=== PATIENT | male | born 1945 | race Caucasian/White ===

== ENCOUNTER 2019-01-08 15:58 | Inpatient (IN) ==
[~2019-01-08 15:58] MED LIST: KETAMINE HCL INJ 50 MG/ML 10 ML VIAL IV ONE; ROCURONIUM BROMIDE 10 MG/ML 10 ML VIAL IV ONE
[2019-01-08] MEDS ORDERED: RAPID SEQUENCE INDUCTION BAG ONE (16:01)
--- OUTSIDE RECORDS SUMMARY | 2019-01-08 16:01 | External Medical Summary | Continuity of Care Document ---
:1945 Author Name Destiney Martin, Provider Address Unavailable Unavailable , Care Team Providers Name Role Phone NonMNPG Mario, Provider Unavailable [email or web address], [email or web address] Unavailable Unavailable Problems Active medical history not documented Allergies and Adverse Reactions Allergy history not documented Medications Medications not documented Procedures Procedures not documented Immunizations Immunizations not documented Plan of Treatment Planned Observations Planned Goals not documented Results No Known Results Results not documented
[2019-01-08] MEDS ORDERED: fentaNYL DRIP 1,250 MCG/250 ML BAG IV STA (16:13)
[2019-01-08] MEDS ORDERED: fentaNYL citrate 100 MCG/2 ML VIAL IV PRN ×2 (16:13→19:01)
[2019-01-08] MEDS ORDERED: MIDAZOLAM HCL 125 MG/250 ML BAG IV STA (16:13)
[2019-01-08] MEDS ORDERED: MIDAZOLAM HCL 1 MG/ML 2ML VIAL IV PRN (16:13)
[2019-01-08] MEDS ORDERED: THIAMINE HCL 100 MG in SYRINGE 9 ML IV STA (16:16)
[2019-01-08] MEDS ORDERED: FOLIC ACID 1 MG in SYRINGE 9.8 ML IV STA (16:16)
--- NOTE | 2019-01-08 16:19 | XRay Report ---
XR chest 1V portable CLINICAL HISTORY: Post intubation tube position COMPARISON STUDY: 03/26/2018 FINDINGS: Endotracheal tube 4 cm above the bridget. Lungs are considered clear. Diaphragms are smooth. Minimal atelectatic and/or interstitial change left base. IMPRESSION: Endotracheal tube in good position 4 cm above the bridget. Minimal interstitial/atelectat ic change left base. The above report was generated using voice recognition software. It may contain grammatical, syntax or spelling errors. Electronically signed by: Rios Orozco M.D. 01/08/2019 4:18 PM
[2019-01-08 16:20] LABS: Basophils # (auto) 0.02 K/uL (0-0.2); Basophils % (auto) 0.1 %; Eosinophils # (auto) 0.07 K/uL (0-0.5); Eosinophils % (auto) 0.4 %; Hematocrit (blood only) 34.6 % (42-52); Immature Granulocytes # (auto) 0.03 K/uL (0.00-0.02); Immature Granulocytes % (auto) 0.2 %; Lymphocytes # (auto) 1.38 K/uL (1.2-3.4); Lymphocytes % (auto) 8.1 %; Mean Corpuscular Hgb Conc 34.7 g/dL (32-36); Mean Platelet Volume 9.9 fL (7.4-10.4); Monocytes # (auto) 0.74 K/uL (0.11-0.59); Monocytes % (auto) 4.3 %; Neutrophils # (auto) 14.87 K/uL (1.4-6.5); Neutrophils % (auto) 86.9 %; Platelet Count 177 K/uL (130-400); RDW Coefficient of Variation 12.7 % (11.5-14.5); Red Blood Count 3.93 M/uL (4.7-6.1); White Blood Count 17.11 K/uL (4.8-10.8)
[2019-01-08 16:22] LABS: iSTAT Creatinine 1.6 mg/dl (0.6-1.3); iSTAT Hemoglobin 11.2 g/dl (14.0-18.0); iSTAT Ionized Calcium 1.23 mmol/l (1.12-1.32)
[2019-01-08 16:30] LABS: Base Excess VBG -6.5 mEq/L; Oxygen Saturation VBG 98.8 %; pH VBG 7.31 (7.36-7.41)
[2019-01-08 16:31] LABS: Alanine Aminotransferase 22 U/L (12-78); Albumin Level 3.7 gm/dl (3.4-5.0); Aspartate Aminotransferase 25 U/L (15-37); BUN Creatinine Ratio 17.6 (10-20); Blood Urea Nitrogen 28 mg/dl (7-18); Calcium 8.8 mg/dl (8.5-10.1); Carbon Dioxide 21 mmol/L (21-32); Chloride 109 mmol/L (98-107); Creatinine Clr Calc Pharmacy 37.5 ml/min; Est GFR (African American) 49.2; Est GFR (Non-African American) 42.4; Glucose 178 mg/dl (70-99); INR 1.1 (0.9-1.1); Potassium 4.9 mmol/L (3.5-5.1); Prothrombin Time 10.9 Seconds (9.0-12.0); Sodium 140 mmol/L (136-145)
[2019-01-08 16:40] LABS: Albumin Globulin Ratio 1.3 (0.9-2); Alkaline Phosphatase 122 U/L (45-117); Bilirubin,Total 0.7 mg/dl (0.2-1); Creatine Kinase 156 U/L (39-308); Globulin 2.9 gm/dl (2.5-4.0); NT Pro B Type Natriuretic Pept 259 pg/ml (0-900); Total Protein 6.6 gm/dl (6.4-8.2)
--- NOTE | 2019-01-08 16:49 | CT Scan Report ---
CT head/brain wo con CT DOSE: HISTORY: Mental status change ams TECHNIQUE: Multiaxial CT images of the head were performed without the use of intravenous contrast. A dose lowering technique was utilized adhering to the principles of ALARA. Comparison: 03/26/2018 Findings: Extensive edematous change of the nasopharynx. This may be secondary to traumatic intubatio n. Considerable chronic small vessel change in the periventricular deep matter regions. Small old infarcts of the right thalamus and left frontal region. No midline shift. The calvarium and skull base are intact. The ventricles and sulci are within normal limits. There is no mass, hematoma, midline shift, or acute infarct. Impression: 1. No acute intracranial abnormality. 2. Age-related atrophy and chronic small vessel change. 3. Hypertrophic change of the nasal turbinates and posterior nasopharyngeal region possibly secondary to intubation efforts. The above report was generated using voice recognition software. It may contain grammatical, syntax or spelling errors. Electronically signed by: Rios Orozco M.D. 01/08/2019 4:48 PM
[2019-01-08 16:51] LABS: Troponin I < 0.015 ng/ml (0-0.045)
[2019-01-08 16:58] LABS: Acetaminophen < 2 ug/ml (10-30); Salicylate < 1.7 mg/dl (2.8-20)
[2019-01-08] MEDS ORDERED: CEFEPIME 1,000 MG in SYRINGE 0 ML IV STA (17:00)
[2019-01-08 17:12] LABS: Appearance Urine Cloudy (Clear); Bacteria Urine Automated Negative (Negative); Bilirubin Urine Negative (Negative); Blood Urine Negative (Negative); Color Urine Yellow; Epithelial Cell Urine Auto 0-5 /lpf (0-5); Glucose Urine UA Negative (Negative); Ketones Urine Negative (Negative); Leukocyte Esterase Urine 3+ (Negative); Nitrite Urine Negative (Negative); Protein Urine Negative (Negative); RBC Urine Automated 0-4 /hpf (0-4); Specific Gravity Urine 1.014 (1.000-1.030); Urobilinogen Urine Negative (Negative); WBC Urine Automated >30 /hpf (0-5)
--- NOTE | 2019-01-08 17:33 | Critical Care Consultation ---
Date of Consultation January 08, 2019 Assessment & Plan (1) Admitted to intensive care unit: Reason Critically Ill: Mr. Gilmar Kennedy is a 73 y/o male with numerous comorbidities who required mechanical ventilation for respiratory failure. Neuro: Sedation with proprofol Pain Rx: Fentanyl 100mcg IV q2H PRN CT head performed in ED on 01/08 * Age-related atrophy and chronic small vessel change otherwise no acute intracranial abnormality. Cardiac/Vascular PMHx: HTN, HLD CT Angio Chest pending to rule out PE. Hemodynamically stable Pulm: Acute Respiratory Failure COPD exacerbation vs. Pneumonia vs. Pulmonary embolism. Intubated on mechanical ventilation in ED Vent Settings * Mode PRVC; Fraction of Inspired O2=60; RR 16; PEEP 5; Vent Tidal Volume setting 450 GI: Prophylaxis: Pepcid 20mg IV q12h NG tube placement Senna 17.2mg PO qHS PRN for constipation Renal/Lytes - Elevation of creatinine 1.59 consistent with PRETTY. - IVF: Normosol @ 100mL/hr - Monitor I&Os : Palacios - yes Endo: Hx of DM2 Insulin Aspart * bG goal range 140-180; CF:30; I:CHO ratio 1:30 Heme: Hx of iron deficiency anemia * Hgb of 12 in ED that was normocytic and normochromic Leukocytosis of 17.11. Platelets WNL ID: [id number] suggestive of UTI with 3+ Leukocytes and >30 WBCs; urine culture pending Cultures ordered and pending include: Blood, sputum (w/gram stain), urine, fungal Will treat with Rocephin 1gm q24h and Levofloxacin 750mg q24H for synergistic effect and also will provide atypical coverage. Lines: PIVs: 18g in left hand; 20g in right hand DVT ppx: Heparin 5,000 q8h SCDs Yes Resuscitation Status: DNR/DNI Discussed with daughter whom conveyed patient's wishes of DNR/DNI code status, which was reflected as well on POLST form patient brought. 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 Cao was resident physician during care of patient. I separately evaluated patient for herrera portions of the history and the exam. I was present during the critical portion of medical decision making, and I discussed the case with the resident. I generally agree with the findings and plan. Intubated for respiratory insufficiency/respiratory distress. In review of prior records the patient has a Palacios executed pulsed form indicating DNR/DNI in event of cardiac arrest that was dated in 2017. I reviewed prior records which stated the patient requested full code in 2018. I discussed this with the patient's daughter who is the power of ip technology transactions attorney in [place] she stated that her father has severe dementia and at this time would likely be unable to rationalize these decision. It is anticipated that this was also the case in the previous admission which she requested full code, the pulsed form was executed when the patient likely had additional capacity. Therefore we will proceed with DO NOT RESUSCITATE in event of cardiac arrest and this was also confirmed by the patient's daughter that he would not want heroic efforts in such condition. Empiric treatment with antibiotics for presumptive COPD exacerbation. I have personally spent 65 minutes of critical care time in the direct management of this patient. This is a life/limb threatening event. This includes time spent evaluating patient, direct bedside care, chart review, placing orders, interpretation of diagnostic studies, discussion with consultants, patient, and/or family members regarding treatment decisions, as well as other required patient management activities. This time is exclusive of all separately billable procedures, and teaching time and separate from and in addition to any other critical care service time. History of Present Illness Reason for Consultation: Critically ill requiring Mechanical ventilation History of Present Illness Caveat: History Limited by Sedation and on Ventilator. Mr. Nasim Kennedy is a 73 y/o male with past medical history of CVA, dementia, alcoholic encephalopathy, DM2, HTN, HLD, right BKA who presented to [facility] ED for dyspnea. ER physician was able to provide history as patient is currently unable because on ventilator with sedation. [facility] who saw their PCP for dyspnea who was then directed to [facility] ED for evaluation and treatment. Patient then requested intubation. Code status was discussed with daughter who relayed DNR/DNI code status per patient's wishes. Allergies Allergy/AdvReac Type Severity Reaction Status Date / Time No Known Allergies Allergy Verified 01/08/19 16:29 Home Medications Home Medications Medication Instructions Recorded Confirmed Type Artificial Tears (PF) 1 drp OPB TID 03/26/18 01/08/19 History GlucaGen HypoKit 1 mg IM DIRECTED PRN 03/26/18 01/08/19 History PreserVision AREDS-2 1 tab PO DAILY 03/26/18 01/08/19 History Travatan Z 1 drp OPB PM 03/26/18 01/08/19 History acetaminophen 650 mg PO Q6H PRN MDD 4 GRAMS/24 03/26/18 01/08/19 History HOURS alum-mag hydroxide-simeth 30 ml PO QPM PRN 03/26/18 01/08/19 History [Jaymie-Lanta] amlodipine 5 mg PO DAILY 03/26/18 01/08/19 History atorvastatin 80 mg PO HS 03/26/18 01/08/19 History dorzolamide-timolol [Cosopt] 1 drp OPB BID 03/26/18 01/08/19 History ferrous sulfate 325 mg PO DAILY 03/26/18 01/08/19 History folic acid 1 mg PO DAILY 03/26/18 01/08/19 History glipizide 5 mg PO QAM 03/26/18 01/08/19 History lisinopril 1 tab PO DAILY 03/26/18 01/08/19 History lorazepam 0.5 mg PO Q4H PRN 03/26/18 01/08/19 History metformin [Glucophage] 500 mg PO BID 03/26/18 01/08/19 History multivitamin [Tab-A-Tj] 1 tab PO DAILY 03/26/18 01/08/19 History omega 8-owc-esy-fish oil [Fish Oil] 1 cap PO DAILY 03/26/18 01/08/19 History pilocarpine HCl 1 drp OPB QID 03/26/18 01/08/19 History tamsulosin 1 cap PO QDD 03/26/18 01/08/19 History thiamine HCl (vitamin B1) [Vitamin 100 mg PO DAILY 03/26/18 01/08/19 History B-1] citalopram [Celexa] 10 mg PO QDD 01/08/19 01/08/19 History insulin glargine [Lantus U-100 10 unit SUBCUT HS 01/08/19 01/08/19 History Insulin] levetiracetam 250 mg PO BID 01/08/19 01/08/19 History lorazepam 0.5 mg PO BID 01/08/19 01/08/19 History Patient History Medical History B12 deficiency (Chronic) Tremor (Chronic) Macular degeneration (Chronic) Anxiety (Chronic) Alcoholic encephalopathy (Chronic) BPH (benign prostatic hyperplasia) (Chronic) Iron deficiency anemia (Chronic) HTN (hypertension) (Chronic) HLD (hyperlipidemia) (Chronic) Diabetes mellitus, type II (Chronic) No pertinent family history Surgical History History of right below knee amputation (Chronic) Family History Other No pertinent family history Social History Preferred Language: Swiss Communication Ability: Unable Communication Ability Comment: Patient presently intubated and sedated New Car Get Ready Mechanic Required: No Beliefs That Will Affect Care: None Current Living Situation: Correction Other Information That Helps Us Care for You: No Feels Safe at Home: Yes Smoking Status: Former smoker Tobacco Type: cigarettes Do You Dip or Chew Tobacco: No Second Hand Exposure: No Tobacco Cessation Education Requested by Patient: No Hx Alcohol Use: No Hx Substance Use: No Review of Systems Review of Systems: Unobtainable due to endotracheal tube Physical Exam Physical Exam: Caveat: Physical exam limited by mechanical ventilation Constitutional: + mechanically ventilated Neck: normal visual inspection and trachea midline Respiratory: diffuse coarse breath sounds Cardiovascular: Rate/Rhythm: regular rate and regular rhythm Extremities: no pedal edema Gastrointestinal (Abdomen): Inspection/Auscultation: abdomen not distended and caput medusae absent Percussion/Palpation: abdomen soft central midline large old well healed surgical scar; bilateral old well healed inguina surgical scars Musculoskeletal: Head/Neck/Chest: normocephalic and head atraumatic right BKA well healed old Skin: no rashes, warm and dry Results & Data Vital Signs (Past 12 Hours) Vital Signs Pulse Resp BP Pulse Ox 01/08/19 17:15 102 H 111/70 100 01/08/19 17:10 102 H 92/70 L 100 01/08/19 17:05 104 H 92/66 L 100 01/08/19 17:02 105 H 105/66 100 01/08/19 17:00 106 H 100 01/08/19 16:49 109 H 171/85 H 100 01/08/19 16:30 105 H 100 01/08/19 16:23 107 H 106/61 100 01/08/19 16:22 105 H 16 100 01/08/19 16:15 110 H 110/62 100 01/08/19 16:04 99 H 25 H 110/62 100 01/08/19 16:01 103 H 110/62 97 PG Care Time/CCT Total # of Minutes Spent Total Time Spent with Patient: Total time spent is greater than 50% in coordination of care (as documented) at patient's floor/unit and/or counseling patient: Critical Care Time: Yes Total Critical Care Time: 65 Resident Activity Tracking Resident Involvement: Resident Care Provided Care Provided: Adult Hospital Medicine (ICU) (1) Acute respiratory failure Respiratory failure complication: unspecified whether with hypoxia or hypercapnia Qualified Code(s): J96.00 - Acute respiratory failure, unspecified whether with hypoxia or hypercapnia (2) Leukocytosis Leukocytosis type: unspecified Qualified Code(s): D72.829 - Elevated white blood cell count, unspecified (3) Altered mental status Altered mental status type: unspecified Qualified Code(s): R41.82 - Altered mental status, unspecified
[2019-01-08 17:38] LABS: Cast Urine Automated 0 /lpf (0-5)
--- NOTE | 2019-01-08 18:18 | History & Physical Report ---
Date of Service January 08, 2019 Assessment & Plan (1) Acute respiratory failure: (2) Altered mental status: (3) SIRS (systemic inflammatory response syndrome): (4) PRETTY (acute kidney injury): This is a 72 year old male with PMH HTN, HLD, DM II, CVA, PAD with hx of R BKA, alcohol induced encephalopathy, tremors, iron deficiency anemia, macular degeneration, BPH who presented [place] for acute respiratory failure requiring mechanical ventilation. In ED patient was intubated due to persistent acute respiratory failure. His lab work was significant for leukocytosis at 17,000, H&H 12.0 with 34.6, platelet 177, elevated BUN and creatinine 28 and 1.59, glucose 178, LA 2.48. His VBG pH was 7.31. Troponin, TSH and BMP were all within normal limits. CT Head: Age-related atrophy and chronic small vessel change otherwise no acute intracranial abnormality. CXR: showed proper positioning of ET tube but no acute abnormality. Upon admission patient met SIRS criteria with leukocytosis of 17,000, HR greater than 90, tachypnea Blood cultures were ordered by senior living sales counselor Lactic acid elevated at 2.48 Patient was administered IV cefepime Hemodynamically stable while in ED Source of infection: Unknown ? pulm given scattered rhonchi, CTA pending along with blood cultures and urine culture Pt admitted to ICU service Dr. Smith - appreciate their input Please refer to senior living sales counselor consultation for assessment and plan (5) Diabetes mellitus, type II: unknown A1C, obtain in a.m hyperglycemic protocol per ICU Novolog SS per protocol (6) HTN (hypertension): blood pressure controlled hold oral antihypertensives, management per ICU (7) HLD (hyperlipidemia): on statin as outpt currently on hold (8) Anemia: H/H stable at 12.0 and 34.6 on iron as outpt (9) History of CVA (cerebrovascular accident): on high dose statin therapy not on ASA (10) Macular degeneration: continue eye gtt (11) Anxiety: lorazepam prn (12) BPH (benign prostatic hyperplasia): hampton in place on flomax as outpt (13) Dementia associated with alcoholism with behavioral disturbance: per SNF pt can be very uncooperative and agitated currently sedated on thiamine and folic acid out outpt (14) History of right below knee amputation: stable R BKA about ~ 1 year ago has prosthetic hx of severe PAD per SNF (15) DVT prophylaxis: Heparin SQ Disposition: to be determined, case management to be consulted pt resides at [facility] Patient was seen and examined in collaboration with Dr. Puckett please see addendum History of Present Illness Chief Complaint: Respiratory failure requiring mechanical ventilation Primary Care Provider: Charles Gaspar This is a 72 year old male with PMH HTN, HLD, DM II, CVA, PAD with hx of R BKA, alcohol induced encephalopathy, tremors, iron deficiency anemia, macular degeneration, BPH who presented to ER from [place] for acute respiratory failure requiring mechanical ventilation. Per [facility], [facility], patient was being seen at [place] today for eye problems. When at the [place] patient developed difficulty breathing and respiratory distress. Patient is a DNR/DNI but when respiratory status worsened he requested to be intubated. Per SNF patient had been in his usual state of health up until today. He does have dementia and can be uncooperative when his blood sugar is high. He also frequently refuses insulin and is noncompliant with other medications. He had not having any respiratory or URI like problems at [facility]. It was also noted he seemed more depressed for the past 6 months and he does have a history of heavy alcohol use in the past. Unable to obtain history from patient given sedated state. Allergies Allergy/AdvReac Type Severity Reaction Status Date / Time No Known Allergies Allergy Verified 01/08/19 16:29 Home Medications Home Medications Medication Instructions Recorded Confirmed Type Artificial Tears (PF) 1 drp OPB TID 03/26/18 01/08/19 History GlucaGen HypoKit 1 mg IM DIRECTED PRN 03/26/18 01/08/19 History PreserVision AREDS-2 1 tab PO DAILY 03/26/18 01/08/19 History Travatan Z 1 drp OPB PM 03/26/18 01/08/19 History acetaminophen 650 mg PO Q6H PRN MDD 4 GRAMS/24 03/26/18 01/08/19 History HOURS alum-mag hydroxide-simeth 30 ml PO QPM PRN 03/26/18 01/08/19 History [Jaymie-Lanta] amlodipine 5 mg PO DAILY 03/26/18 01/08/19 History atorvastatin 80 mg PO HS 03/26/18 01/08/19 History dorzolamide-timolol [Cosopt] 1 drp OPB BID 03/26/18 01/08/19 History ferrous sulfate 325 mg PO DAILY 03/26/18 01/08/19 History folic acid 1 mg PO DAILY 03/26/18 01/08/19 History glipizide 5 mg PO QAM 03/26/18 01/08/19 History lisinopril 1 tab PO DAILY 03/26/18 01/08/19 History lorazepam 0.5 mg PO Q4H PRN 03/26/18 01/08/19 History metformin [Glucophage] 500 mg PO BID 03/26/18 01/08/19 History multivitamin [Tab-A-Tj] 1 tab PO DAILY 03/26/18 01/08/19 History omega 3-enm-lzi-fish oil [Fish Oil] 1 cap PO DAILY 03/26/18 01/08/19 History pilocarpine HCl 1 drp OPB QID 03/26/18 01/08/19 History tamsulosin 1 cap PO QDD 03/26/18 01/08/19 History thiamine HCl (vitamin B1) [Vitamin 100 mg PO DAILY 03/26/18 01/08/19 History B-1] citalopram [Celexa] 10 mg PO QDD 01/08/19 01/08/19 History insulin glargine [Lantus U-100 10 unit SUBCUT HS 01/08/19 01/08/19 History Insulin] levetiracetam 250 mg PO BID 01/08/19 01/08/19 History lorazepam 0.5 mg PO BID 01/08/19 01/08/19 History Past Med/Surg History Medical History B12 deficiency (Chronic) Tremor (Chronic) Macular degeneration (Chronic) Anxiety (Chronic) Alcoholic encephalopathy (Chronic) BPH (benign prostatic hyperplasia) (Chronic) Iron deficiency anemia (Chronic) HTN (hypertension) (Chronic) HLD (hyperlipidemia) (Chronic) Diabetes mellitus, type II (Chronic) No pertinent family history Surgical History History of right below knee amputation (Chronic) Family History Other No pertinent family history Social History Preferred Language: Yakut Communication Ability: Impaired Beliefs That Will Affect Care: None Current Living Situation: Senior Care Feels Safe at Home: Yes Smoking Status: Former smoker Tobacco Type: cigarettes Second Hand Exposure: No Hx Alcohol Use: Yes Hx Substance Use: No Review of Systems Review of Systems: Unobtainable due to endotracheal tube Physical Exam Physical Exam: Gen: critically ill but WN male, lying in bed, sedated with ET tube Head: Normocephalic, Atraumatic Eyes: Sclera normal, mild conjunctival injection, PERRLA ENT: unable to visualize given ET tube Resp: +ET tube, rhonchi noted throughout R > L no wheeze or rales. CV: Regular rate, regular rhythm, no murmur, rub, gallop, or ectopy Abd: +BS x 4, scaphoid abd, + vertical scar noted along abdomen and b/l femoral region, soft, nontender, nondistended Musculoskeletal: unable to assess Extremities: No edema bilaterally, LLE pedal pulse +1, R BKA residual limb well healed Skin: warm, moist, no rash, negative turgor, cap refill < 2sec Neuro: Sedated with ET tube : +hampton with clear yellow urine Results & Data Vital Signs (Past 12 Hours) Vital Signs Pulse Resp BP Pulse Ox 01/08/19 17:55 92 H 118/65 99 01/08/19 17:50 94 H 102/62 99 01/08/19 17:45 94 H 109/65 100 01/08/19 17:40 95 H 107/63 100 01/08/19 17:35 96 H 109/67 100 01/08/19 17:30 96 H 108/64 100 01/08/19 17:25 97 H 110/64 100 01/08/19 17:20 99 H 109/70 100 01/08/19 17:15 102 H 111/70 100 01/08/19 17:10 102 H 92/70 L 100 01/08/19 17:05 104 H 92/66 L 100 01/08/19 17:02 105 H 105/66 100 01/08/19 17:00 106 H 100 01/08/19 16:49 109 H 171/85 H 100 01/08/19 16:30 105 H 100 01/08/19 16:23 107 H 106/61 100 01/08/19 16:22 105 H 16 100 01/08/19 16:15 110 H 110/62 100 01/08/19 16:04 99 H 25 H 110/62 100 01/08/19 16:01 103 H 110/62 97 Laboratory Results Short CBC 01/08/19 Range/Units 16:00 WBC 17.11 H (4.8-10.8) K/uL Hgb 12.0 L (14.0-18.0) g/dL Hct 34.6 L (42-52) % Plt Count 177 (130-400) K/uL BMP 01/08/19 16:00 Sodium 140 Potassium 4.9 Chloride 109 H Carbon Dioxide 21 BUN 28 H Creatinine 1.59 H Glucose 178 H Calcium 8.8 Cardiac Enzymes 01/08/19 Range/Units 16:00 Total Creatine Kinase 156 (39-308) U/L Troponin I < 0.015 (0-0.045) ng/ml Liver Function 01/08/19 Range/Units 16:00 Total Bilirubin 0.7 (0.2-1) mg/dl AST 25 (15-37) U/L ALT 22 (12-78) U/L Alkaline Phosphatase 122 H (45-117) U/L Albumin 3.7 (3.4-5.0) gm/dl Urine 01/08/19 Range/Units 17:00 Urine Color Yellow Urine Appearance Cloudy A (Clear) Urine pH 5.0 (4.5-7.5) Ur Specific [place] 1.014 (1.000-1.030) Urine Protein Negative (Negative) Urine Glucose (UA) Negative (Negative) Diagnostic Findings Head CT: Impression: 1. No acute intracranial abnormality. 2. Age-related atrophy and chronic small vessel change. 3. Hypertrophic change of the nasal turbinates and posterior nasopharyngeal region possibly secondary to intubation efforts. CXR: IMPRESSION: Endotracheal tube in good position 4 cm above the bridget. Minimal interstitial/atelectatic change left base. Medications Administered Fentanyl Citrate (Fentanyl Drip) 1,250 mcg in 250 mls @ 5 mls/hr IV .Q24H STA; Protocol Stop: 01/09/19 16:12 Last Admin: 01/08/19 17:04 Dose: 25 mcg/hr, 5 mls/hr Documented by: [id number] Cosigned by: [id number] Midazolam HCl (Versed) 125 mg in 250 mls @ 2 mls/hr IV .Q24H STA; Protocol Stop: 01/09/19 16:12 Last Admin: 01/08/19 17:04 Dose: 1 mg/hr, 2 mls/hr Documented by: [id number] Cosigned by: [id number] Ioversol (Optiray 320 125ml) 120 ml IV ONCE PRN PRN Reason: Interaction Checking Stop: 01/12/19 18:20 Last Admin: 01/08/19 18:22 Dose: 120 ml Documented by: [id number] Discontinued Medications Thiamine HCl 100 mg/ Syringe 10 mls @ 2 mls/min IV NOW STA Stop: 01/08/19 16:20 Last Admin: 01/08/19 17:06 Dose: 2 mls/min Documented by: [id number] Folic Acid 1 mg/ Syringe 10 mls @ 5 mls/min IV NOW STA Stop: 01/08/19 16:17 Last Admin: 01/08/19 17:06 Dose: 5 mls/min Documented by: [id number] Cefepime HCl 1,000 mg/ Syringe 11.3 mls @ 5.5 mls/min IV NOW STA; Protocol Stop: 01/08/19 17:02 Last Admin: 01/08/19 17:32 Dose: 5.5 mls/min Documented by: [id number] ECG Rate (beats per minute): 103 Rhythm: sinus tachycardia Supervising Physician Co-Signing Physician Notes I saw this patient with the physician or assistant, I participated in the history, physical, review of systems, and physical exam. I reviewed the medications with the patient and the physician or assistant and helped reconcile the medications. I helped take a detailed family and social history as well. I formulated the assessment and plan personally with the physician or assistant and went over it with the patient. ROS-Intubated, Offers no history Physical Exam Gen-NAD, Afebrile, intubated, Eyes wide open Head-NCAT, EOMI, PERRLA, Anicteric Sclera, +ETT Neck-Supple, No JVD, No Thyromegaly, No Masses, No LAD, No Bruits Lungs-Clear to Auscultation Bilaterally, No Rales, No Rhonchi, No Wheezing, No Crepitus Chest-No S4, +S1, +S2, No S3, No Murmurs, No Rubs, No Gallops, No Ectopy Abdomen-Soft, Bowel Sounds Present, Midline Scar and Inguinal Scars, Non Distended, No Hepatomegaly, No Splenomegaly, No Palpable Masses, No Rigidity Musculoskeletal-Not assessed Extremities-No Cyanosis, No Clubbing, No Edema, R BKA Nuero-Intubated and sedated (1) Acute respiratory failure Respiratory failure complication: unspecified whether with hypoxia or hypercapnia Qualified Code(s): J96.00 - Acute respiratory failure, unspecified whether with hypoxia or hypercapnia (2) Altered mental status Altered mental status type: unspecified Qualified Code(s): R41.82 - Altered mental status, unspecified
[2019-01-08] MEDS ORDERED: OPTIRAY 320 125ml IV PRN (18:21)
--- NOTE | 2019-01-08 18:26 | Emergency Department Note ---
Entered by Ashely Kirkland acting as a scribe for History of Present Illness General Chief complaint: Unresponsive Stated complaint: UNRESPONESIVE Source: patient Mode of arrival: EMS Limitations: other (unresponsive) History of Present Illness Onset (ago): hour(s) (30) Location: head (unresponsive) Pain Consistency: + other (episode) Quality: + other (unresponsive) Associated symptoms: + nausea/vomiting (The patient vomited. ) The HPI is limited secondary to patient non-responsiveness. The patient is a 73 year old male with a history of hypertension, hyperlipidemia, diabetes, CVA, and alcohol induced encephalopathy who presents to the ED for respiratory distress with an onset 30 minutes ago. Per EMS, the patient was being seen at the ID clinic in [place]. They note that he started nodding off during the session and becoming more lethargic. His respiratory rate eventually went down to 6-8 and this started bagging him as he was unresponsive. EMS did attempt to intubate him in the field with etomidate but were not successful after discussing with the patient intubation and he noted that he wanted to be intu bated. Per EMS he was answering questions appropriately at this time. Per EMS, the patient vomited while he was being tubed and they had difficulty were unable to intubate him in the field. Home Medications Home Medications Medication Instructions Recorded Confirmed Type Artificial Tears (PF) 1 drp OPB TID 03/26/18 01/08/19 History GlucaGen HypoKit 1 mg IM DIRECTED PRN 03/26/18 01/08/19 History PreserVision AREDS-2 1 tab PO DAILY 03/26/18 01/08/19 History Travatan Z 1 drp OPB PM 03/26/18 01/08/19 History acetaminophen 650 mg PO Q6H PRN MDD 4 GRAMS/24 03/26/18 01/08/19 History HOURS alum-mag hydroxide-simeth 30 ml PO QPM PRN 03/26/18 01/08/19 History [Jaymie-Lanta] amlodipine 5 mg PO DAILY 03/26/18 01/08/19 History atorvastatin 80 mg PO HS 03/26/18 01/08/19 History dorzolamide-timolol [Cosopt] 1 drp OPB BID 03/26/18 01/08/19 History ferrous sulfate 325 mg PO DAILY 03/26/18 01/08/19 History folic acid 1 mg PO DAILY 03/26/18 01/08/19 History glipizide 5 mg PO QAM 03/26/18 01/08/19 History lisinopril 1 tab PO DAILY 03/26/18 01/08/19 History lorazepam 0.5 mg PO Q4H PRN 03/26/18 01/08/19 History metformin [Glucophage] 500 mg PO BID 03/26/18 01/08/19 History multivitamin [Tab-A-Tj] 1 tab PO DAILY 03/26/18 01/08/19 History omega 4-jpv-jej-fish oil [Fish Oil] 1 cap PO DAILY 03/26/18 01/08/19 History pilocarpine HCl 1 drp OPB QID 03/26/18 01/08/19 History tamsulosin 1 cap PO QDD 03/26/18 01/08/19 History thiamine HCl (vitamin B1) [Vitamin 100 mg PO DAILY 03/26/18 01/08/19 History B-1] citalopram [Celexa] 10 mg PO QDD 01/08/19 01/08/19 History insulin glargine [Lantus U-100 10 unit SUBCUT HS 01/08/19 01/08/19 History Insulin] levetiracetam 250 mg PO BID 01/08/19 01/08/19 History lorazepam 0.5 mg PO BID 01/08/19 01/08/19 History Allergies Allergy/AdvReac Type Severity Reaction Status Date / Time No Known Allergies Allergy Verified 01/08/19 16:29 Past Med/Surg History Medical History B12 deficiency (Chronic) Tremor (Chronic) Macular degeneration (Chronic) Anxiety (Chronic) Alcoholic encephalopathy (Chronic) BPH (benign prostatic hyperplasia) (Chronic) Iron deficiency anemia (Chronic) HTN (hypertension) (Chronic) HLD (hyperlipidemia) (Chronic) Diabetes mellitus, type II (Chronic) No pertinent family history Surgical History History of right below knee amputation (Chronic) Family History Other No pertinent family history Social History Preferred Language: Bulgarian Communication Ability: Impaired Beliefs That Will Affect Care: None Current Living Situation: Retirement Feels Safe at Home: Yes Smoking Status: Former smoker Tobacco Type: cigarettes Second Hand Exposure: No Hx Alcohol Use: Yes Hx Substance Use: No Review of Systems See HPI for pertinent positives & negatives. and A total of 10 systems reviewed and were otherwise negative Physical Exam Vital Signs Vital Signs - 24 hr 01/08/19 16:01 01/08/19 16:04 01/08/19 16:06 Sepsis Action Taken by Nursing No Action Required End-Tidal CO2 Pulse Rate 103 H 99 H Pulse Rate from SpO2 Sensor 101 H Respiratory Rate 25 H Blood Pressure 110/62 110/62 Blood Pressure Mean 78 78 Blood Pressure Position Lying Pulse Oximetry 97 100 Oxygen Delivery Method Mechanical Vent Ambu-Bag Mechanical Vent Oxygen Flow Rate 100 Fraction of Inspired Oxygen 01/08/19 16:15 01/08/19 16:22 01/08/19 16:23 Sepsis Action Taken by Nursing End-Tidal CO2 31 32 28 Pulse Rate 110 H 105 H 107 H Pulse Rate from SpO2 Sensor 110 H 107 H Respiratory Rate 16 Blood Pressure 110/62 106/61 Blood Pressure Mean 78 76 Blood Pressure Position Pulse Oximetry 100 100 100 Oxygen Delivery Method Mechanical Vent Mechanical Vent Oxygen Flow Rate 100 100 Fraction of Inspired Oxygen 100 01/08/19 16:30 01/08/19 16:49 01/08/19 17:00 Sepsis Action Taken by Nursing End-Tidal CO2 27 29 28 Pulse Rate 105 H 109 H 106 H Pulse Rate from SpO2 Sensor 105 H 109 H 106 H Respiratory Rate Blood Pressure 171/85 H Blood Pressure Mean 113 Blood Pressure Position Pulse Oximetry 100 100 100 Oxygen Delivery Method Mechanical Vent Oxygen Flow Rate 100 Fraction of Inspired Oxygen 01/08/19 17:02 01/08/19 17:05 01/08/19 17:10 Sepsis Action Taken by Nursing End-Tidal CO2 28 26 26 Pulse Rate 105 H 104 H 102 H Pulse Rate from SpO2 Sensor 105 H 104 H 102 H Respiratory Rate Blood Pressure 105/66 92/66 L 92/70 L Blood Pressure Mean 79 74 77 Blood Pressure Position Pulse Oximetry 100 100 100 Oxygen Delivery Method Mechanical Vent Mechanical Vent Mechanical Vent Oxygen Flow Rate 100 100 Fraction of Inspired Oxygen 01/08/19 17:15 01/08/19 17:20 01/08/19 17:25 Sepsis Action Taken by Nursing End-Tidal CO2 24 25 26 Pulse Rate 102 H 99 H 97 H Pulse Rate from SpO2 Sensor 102 H 99 H 97 H Respiratory Rate Blood Pressure 111/70 109/70 110/64 Blood Pressure Mean 83 83 79 Blood Pressure Position Pulse Oximetry 100 100 100 Oxygen Delivery Method Mechanical Vent Mechanical Vent Mechanical Vent Oxygen Flow Rate 60 60 Fraction of Inspired Oxygen 01/08/19 17:30 01/08/19 17:35 01/08/19 17:40 Sepsis Action Taken by Nursing End-Tidal CO2 27 27 26 Pulse Rate 96 H 96 H 95 H Pulse Rate from SpO2 Sensor 96 H 96 H 95 H Respiratory Rate Blood Pressure 108/64 109/67 107/63 Blood Pressure Mean 78 81 77 Blood Pressure Position Pulse Oximetry 100 100 100 Oxygen Delivery Method Mechanical Vent Mechanical Vent Mechanical Vent Oxygen Flow Rate 60 60 60 Fraction of Inspired Oxygen 01/08/19 17:45 01/08/19 17:50 01/08/19 17:55 Sepsis Action Taken by Nursing End-Tidal CO2 26 26 27 Pulse Rate 94 H 94 H 92 H Pulse Rate from SpO2 Sensor 94 H 94 H 92 H Respiratory Rate Blood Pressure 109/65 102/62 118/65 Blood Pressure Mean 79 75 82 Blood Pressure Position Pulse Oximetry 100 99 99 Oxygen Delivery Method Mechanical Vent Mechanical Vent Mechanical Vent Oxygen Flow Rate 60 60 60 Fraction of Inspired Oxygen 01/08/19 18:00 01/08/19 18:05 01/08/19 18:10 Sepsis Action Taken by Nursing End-Tidal CO2 27 26 25 Pulse Rate 93 H 93 H Pulse Rate from SpO2 Sensor 93 H 94 H Respiratory Rate Blood Pressure 103/60 109/63 117/68 Blood Pressure Mean 74 78 84 Blood Pressure Position Pulse Oximetry 100 100 Oxygen Delivery Method Mechanical Vent Mechanical Vent Oxygen Flow Rate 60 60 Fraction of Inspired Oxygen GENERAL: Lying in bed, moans to painful stimuli, being bagged, severe distress EYE EXAM: Pupils 3 mm and reactive with rightward gaze. OROPHARYNX: BVM in place with dry mucous membranes NECK: supple, no nuchal rigidity, no adenopathy, non-tender LUNGS: Rhonchi at bilateral bases. HEART: Tachycardic. ABDOMEN: abdomen soft, non-tender, normo-active bowel sounds, no masses, no rebound or guarding. Old midlines incision. BACK: Back is symmetrical on inspection and there is no deformity, no midline tenderness, no CVA tenderness. UPPER EXTREMITIES: upper extremities are grossly normal. LOWER EXTREMITIES: Right BKA with old scar. No pitting edema bilaterally NEURO EXAM: Moans to painful stimuli and moves extremities to sternal rub, eyes are closed. Procedures Intubation Time out performed: No sedative: Ketamine Mg Given: 77 paralytic: Rocuronium Mg Given: 76 Laryngoscope: other (glide scope) ET Tube Size: 7.5 ET Tube Uncuffed: No Tube Secured Depth (cm): 22 Tube Secured Location: lips Tube Placement Confirmation: visualized tube passing through cords and equal breath sounds bilaterally Patient Tolerated Procedure: well Intubation Complications: none Course 1600: Past medical records reviewed. The patient was evaluated in room B01. A complete history and physical examination was performed. The patient was last in the hospital in 03/2019 for AMS. He had right DKA secondary to infection. 1557: The patient has arrived on site. 1558: The patient has arrived into B1. 1616: ET tube reviewed on chest x-ray. It is in position. 1617: I called the patient's daughter but I was unsuccessful and unable to leave a message. I discussed this with case management and they will attempt to call her again. 1646: I updated the patients daughter. 1653 Increasing the Fentanyl drip and calling the ICU. 1656: I reviewed the patient's case with Lien Gay. She will evaluate the patient for further management. 1709: The patient's blood pressure dropped to the 90s. I decreased the Fentanyl drip. 1711: I reviewed the patient's case with Dr. Smith - [facility]. He will evaluate the patient for further management. 1716: I reviewed the patient's case with Dr. Smith - [facility]. 1717: Dr. Smith is at bedside. 1728: I reviewed the patient's case with Dr. Smith - [facility]. Consultations Consultation #1: 1656: I reviewed the patient's case with Lien Gay. She will evaluate the patient for further management. Time: 16:56 Consultation #2: 1711: I reviewed the patient's case with Dr. Smith - ICU. He will evaluate the patient for further management. Time: 17:11 Consultation #3: 1716: I reviewed the patient's case with Dr. Smith - [facility]. Time: 17:16 Additional Consultation(s): 1728: I reviewed the patient's case with Dr. Smith - [facility]. Administered Medications Fentanyl Citrate (Fentanyl Drip) 1,250 mcg in 250 mls @ 5 mls/hr IV .Q24H STA; Protocol Stop: 01/09/19 16:12 Last Admin: 01/08/19 17:04 Dose: 25 mcg/hr, 5 mls/hr Documented by: [id number] Cosigned by: [id number] Midazolam HCl (Versed) 125 mg in 250 mls @ 2 mls/hr IV .Q24H STA; Protocol Stop: 01/09/19 16:12 Last Admin: 01/08/19 17:04 Dose: 1 mg/hr, 2 mls/hr Documented by: [id number] Cosigned by: [id number] Discontinued Medications Thiamine HCl 100 mg/ Syringe 10 mls @ 2 mls/min IV NOW STA Stop: 01/08/19 16:20 Last Admin: 01/08/19 17:06 Dose: 2 mls/min Documented by: [id number] Folic Acid 1 mg/ Syringe 10 mls @ 5 mls/min IV NOW STA Stop: 01/08/19 16:17 Last Admin: 01/08/19 17:06 Dose: 5 mls/min Documented by: [id number] Cefepime HCl 1,000 mg/ Syringe 11.3 mls @ 5.5 mls/min IV NOW STA; Protocol Stop: 01/08/19 17:02 Last Admin: 01/08/19 17:32 Dose: 5.5 mls/min Documented by: [id number] Medical Decision Making Differential Diagnosis Differential diagnoses: Metabolic, infection, hypo/hyperglycemia, electrolyte abnormalities, cardiac so urces, intracerebral event, toxicologic, neurologic, as well as others were entertained. Medical Records Attestation: I reviewed the patient's medical records. Home Medications Current Medication List: was personally reviewed by me Laboratory Data Attestation: I reviewed the patient's lab results. Result diagrams: 01/08/19 16:00 01/08/19 16:00 Lab Results 01/08/19 01/08/19 01/08/19 Range/Units 16:00 16:00 16:00 WBC 17.11 H (4.8-10.8) K/uL RBC 3.93 L (4.7-6.1) M/uL Hgb 12.0 L (14.0-18.0) g/dL POC Hgb (14.0-18.0) g/dl Hct 34.6 L (42-52) % POC Hct (42-52) % MCV 88.0 (80-100) fL MCH 30.5 (25-34) pg MCHC 34.7 (32-36) g/dL RDW Std Deviation 41.0 (36.4-46.3) fL RDW Coeff of Isadora 12.7 (11.5-14.5) % Plt Count 177 (130-400) K/uL MPV 9.9 (7.4-10.4) fL Immature Gran % (Auto) 0.2 % Neut % (Auto) 86.9 % Lymph % (Auto) 8.1 % Travis % (Auto) 4.3 % Eos % (Auto) 0.4 % Baso % (Auto) 0.1 % Immature Gran # (Auto) 0.03 H (0.00-0.02) K/uL Neut # (Auto) 14.87 H (1.4-6.5) K/uL Lymph # (Auto) 1.38 (1.2-3.4) K/uL Travis # (Auto) 0.74 H (0.11-0.59) K/uL Eos # (Auto) 0.07 (0-0.5) K/uL Baso # (Auto) 0.02 (0-0.2) K/uL PT 10.9 (9.0-12.0) Seconds INR 1.1 (0.9-1.1) VBG pH (7.36-7.41) VBG pCO2 (38-50) mmHg VBG pO2 mmHg VBG HCO3 mmol/L VBG O2 Saturation % VBG Base Excess mEq/L Barometric Pressure mm/Hg POC Sodium (135-144) mEq/L Sodium 140 (136-145) mmol/L POC Potassium (3.3-5.0) mEq/L Potassium 4.9 (3.5-5.1) mmol/L POC Chloride (101-112) mEq/L Chloride 109 H (98-107) mmol/L Carbon Dioxide 21 (21-32) mmol/L POC Total CO2 (24-31) mEq/l Anion Gap 10.0 (3-11) POC Anion Gap (16-25) mmol/L POC BUN (7-18) mg/dl BUN 28 H (7-18) mg/dl Creatinine 1.59 H (0.6-1.4) mg/dl POC Creatinine (0.6-1.3) mg/dl Est Cr Clr Drug Dosing 37.5 ml/min Est GFR ( Amer) 49.2 Est GFR (Non-Af Amer) 42.4 BUN/Creatinine Ratio 17.6 (10-20) Glucose 178 H (70-99) mg/dl POC Glucose (other) (70-99) mg/dl POC Lactic Acid Cosme (0.90-1.70) mmol/L Calcium 8.8 (8.5-10.1) mg/dl POC Ioniz Calcium Molly (1.12-1.32) mmol/l Total Bilirubin 0.7 (0.2-1) mg/dl AST 25 (15-37) U/L ALT 22 (12-78) U/L Alkaline Phosphatase 122 H (45-117) U/L Total Creatine Kinase 156 (39-308) U/L Troponin I < 0.015 (0-0.045) ng/ml NT-Pro-B Natriuret Pep 259 (0-900) pg/ml Total Protein 6.6 (6.4-8.2) gm/dl Albumin 3.7 (3.4-5.0) gm/dl Globulin 2.9 (2.5-4.0) gm/dl Albumin/Globulin Ratio 1.3 (0.9-2) TSH 3.260 (0.300-4.500) uIu/ml Urine Color Urine Appearance (Clear) Urine pH (4.5-7.5) Ur Specific [place] (1.000-1.030) Urine Protein (Negative) Urine Glucose (UA) (Negative) Urine Ketones (Negative) Urine Blood (Negative) Urine Nitrite (Negative) Urine Bilirubin (Negative) Urine Urobilinogen (Negative) Ur Leukocyte Esterase (Negative) Urine WBC (Auto) (0-5) /hpf Urine RBC (Auto) (0-4) /hpf U Hyaline Cast (Auto) (0-5) /lpf U Epithel Cells (Auto) (0-5) /lpf Urine Bacteria (Auto) (Negative) Salicylates (2.8-20) mg/dl Acetaminophen (10-30) ug/ml Ethyl Alcohol mg/dL (0-3) mg/dl Blood Type Antibody Screen 01/08/19 01/08/19 01/08/19 Range/Units 16:00 16:07 16:18 WBC (4.8-10.8) K/uL RBC (4.7-6.1) M/uL Hgb (14.0-18.0) g/dL POC Hgb 11.2 L (14.0-18.0) g/dl Hct (42-52) % POC Hct 33 L (42-52) % MCV (80-100) fL MCH (25-34) pg MCHC (32-36) g/dL RDW Std Deviation (36.4-46.3) fL RDW Coeff of Isadora (11.5-14.5) % Plt Count (130-400) K/uL MPV (7.4-10.4) fL Immature Gran % (Auto) % Neut % (Auto) % Lymph % (Auto) % Travis % (Auto) % Eos % (Auto) % Baso % (Auto) % Immature Gran # (Auto) (0.00-0.02) K/uL Neut # (Auto) (1.4-6.5) K/uL Lymph # (Auto) (1.2-3.4) K/uL Travis # (Auto) (0.11-0.59) K/uL Eos # (Auto) (0-0.5) K/uL Baso # (Auto) (0-0.2) K/uL PT (9.0-12.0) Seconds INR (0.9-1.1) VBG pH (7.36-7.41) VBG pCO2 (38-50) mmHg VBG pO2 mmHg VBG HCO3 mmol/L VBG O2 Saturation % VBG Base Excess mEq/L Barometric Pressure mm/Hg POC Sodium 138 (135-144) mEq/L Sodium (136-145) mmol/L POC Potassium 5.0 (3.3-5.0) mEq/L Potassium (3.5-5.1) mmol/L POC Chloride 106 (101-112) mEq/L Chloride (98-107) mmol/L Carbon Dioxide (21-32) mmol/L POC Total CO2 20 L (24-31) mEq/l Anion Gap (3-11) POC Anion Gap 18.0 (16-25) mmol/L POC BUN 27 H (7-18) mg/dl BUN (7-18) mg/dl Creatinine (0.6-1.4) mg/dl POC Creatinine 1.6 H (0.6-1.3) mg/dl Est Cr Clr Drug Dosing ml/min Est GFR ( Amer) Est GFR (Non-Af Amer) BUN/Creatinine Ratio (10-20) Glucose (70-99) mg/dl POC Glucose (other) 187 H (70-99) mg/dl POC Lactic Acid Cosme (0.90-1.70) mmol/L Calcium (8.5-10.1) mg/dl POC Ioniz Calcium Molly 1.23 (1.12-1.32) mmol/l Total Bilirubin (0.2-1) mg/dl AST (15-37) U/L ALT (12-78) U/L Alkaline Phosphatase (45-117) U/L Total Creatine Kinase (39-308) U/L Troponin I (0-0.045) ng/ml NT-Pro-B Natriuret Pep (0-900) pg/ml Total Protein (6.4-8.2) gm/dl Albumin (3.4-5.0) gm/dl Globulin (2.5-4.0) gm/dl Albumin/Globulin Ratio (0.9-2) TSH (0.300-4.500) uIu/ml Urine Color Urine Appearance (Clear) Urine pH (4.5-7.5) Ur Specific [place] (1.000-1.030) Urine Protein (Negative) Urine Glucose (UA) (Negative) Urine Ketones (Negative) Urine Blood (Negative) Urine Nitrite (Negative) Urine Bilirubin (Negative) Urine Urobilinogen (Negative) Ur Leukocyte Esterase (Negative) Urine WBC (Auto) (0-5) /hpf Urine RBC (Auto) (0-4) /hpf U Hyaline Cast (Auto) (0-5) /lpf U Epithel Cells (Auto) (0-5) /lpf Urine Bacteria (Auto) (Negative) Salicylates < 1.7 L (2.8-20) mg/dl Acetaminophen < 2 L (10-30) ug/ml Ethyl Alcohol mg/dL (0-3) mg/dl Blood Type AB Positive Antibody Screen NEGATIVE 01/08/19 01/08/19 01/08/19 Range/Units 16:18 16:23 16:27 WBC (4.8-10.8) K/uL RBC (4.7-6.1) M/uL Hgb (14.0-18.0) g/dL POC Hgb (14.0-18.0) g/dl Hct (42-52) % POC Hct (42-52) % MCV (80-100) fL MCH (25-34) pg MCHC (32-36) g/dL RDW Std Deviation (36.4-46.3) fL RDW Coeff of Isadora (11.5-14.5) % Plt Count (130-400) K/uL MPV (7.4-10.4) fL Immature Gran % (Auto) % Neut % (Auto) % Lymph % (Auto) % Travis % (Auto) % Eos % (Auto) % Baso % (Auto) % Immature Gran # (Auto) (0.00-0.02) K/uL Neut # (Auto) (1.4-6.5) K/uL Lymph # (Auto) (1.2-3.4) K/uL Travis # (Auto) (0.11-0.59) K/uL Eos # (Auto) (0-0.5) K/uL Baso # (Auto) (0-0.2) K/uL PT (9.0-12.0) Seconds INR (0.9-1.1) VBG pH 7.31 L (7.36-7.41) VBG pCO2 39 (38-50) mmHg VBG pO2 138 mmHg VBG HCO3 19 mmol/L VBG O2 Saturation 98.8 % VBG Base Excess -6.5 mEq/L Barometric Pressure 731.7 mm/Hg POC Sodium (135-144) mEq/L Sodium (136-145) mmol/L POC Potassium (3.3-5.0) mEq/L Potassium (3.5-5.1) mmol/L POC Chloride (101-112) mEq/L Chloride (98-107) mmol/L Carbon Dioxide (21-32) mmol/L POC Total CO2 (24-31) mEq/l Anion Gap (3-11) POC Anion Gap (16-25) mmol/L POC BUN (7-18) mg/dl BUN (7-18) mg/dl Creatinine (0.6-1.4) mg/dl POC Creatinine (0.6-1.3) mg/dl Est Cr Clr Drug Dosing ml/min Est GFR ( Amer) Est GFR (Non-Af Amer) BUN/Creatinine Ratio (10-20) Glucose (70-99) mg/dl POC Glucose (other) (70-99) mg/dl POC Lactic Acid Cosme 2.48 H (0.90-1.70) mmol/L Calcium (8.5-10.1) mg/dl POC Ioniz Calcium Molly (1.12-1.32) mmol/l Total Bilirubin (0.2-1) mg/dl AST (15-37) U/L ALT (12-78) U/L Alkaline Phosphatase (45-117) U/L Total Creatine Kinase (39-308) U/L Troponin I (0-0.045) ng/ml NT-Pro-B Natriuret Pep (0-900) pg/ml Total Protein (6.4-8.2) gm/dl Albumin (3.4-5.0) gm/dl Globulin (2.5-4.0) gm/dl Albumin/Globulin Ratio (0.9-2) TSH (0.300-4.500) uIu/ml Urine Color Urine Appearance (Clear) Urine pH (4.5-7.5) Ur Specific [place] (1.000-1.030) Urine Protein (Negative) Urine Glucose (UA) (Negative) Urine Ketones (Negative) Urine Blood (Negative) Urine Nitrite (Negative) Urine Bilirubin (Negative) Urine Urobilinogen (Negative) Ur Leukocyte Esterase (Negative) Urine WBC (Auto) (0-5) /hpf Urine RBC (Auto) (0-4) /hpf U Hyaline Cast (Auto) (0-5) /lpf U Epithel Cells (Auto) (0-5) /lpf Urine Bacteria (Auto) (Negative) Salicylates (2.8-20) mg/dl Acetaminophen (10-30) ug/ml Ethyl Alcohol mg/dL < 3.0 (0-3) mg/dl Blood Type Antibody Screen 01/08/19 Range/Units 17:00 WBC (4.8-10.8) K/uL RBC (4.7-6.1) M/uL Hgb (14.0-18.0) g/dL POC Hgb (14.0-18.0) g/dl Hct (42-52) % POC Hct (42-52) % MCV (80-100) fL MCH (25-34) pg MCHC (32-36) g/dL RDW Std Deviation (36.4-46.3) fL RDW Coeff of Isadora (11.5-14.5) % Plt Count (130-400) K/uL MPV (7.4-10.4) fL Immature Gran % (Auto) % Neut % (Auto) % Lymph % (Auto) % Travis % (Auto) % Eos % (Auto) % Baso % (Auto) % Immature Gran # (Auto) (0.00-0.02) K/uL Neut # (Auto) (1.4-6.5) K/uL Lymph # (Auto) (1.2-3.4) K/uL Travis # (Auto) (0.11-0.59) K/uL Eos # (Auto) (0-0.5) K/uL Baso # (Auto) (0-0.2) K/uL PT (9.0-12.0) Seconds INR (0.9-1.1) VBG pH (7.36-7.41) VBG pCO2 (38-50) mmHg VBG pO2 mmHg VBG HCO3 mmol/L VBG O2 Saturation % VBG Base Excess mEq/L Barometric Pressure mm/Hg POC Sodium (135-144) mEq/L Sodium (136-145) mmol/L POC Potassium (3.3-5.0) mEq/L Potassium (3.5-5.1) mmol/L POC Chloride (101-112) mEq/L Chloride (98-107) mmol/L Carbon Dioxide (21-32) mmol/L POC Total CO2 (24-31) mEq/l Anion Gap (3-11) POC Anion Gap (16-25) mmol/L POC BUN (7-18) mg/dl BUN (7-18) mg/dl Creatinine (0.6-1.4) mg/dl POC Creatinine (0.6-1.3) mg/dl Est Cr Clr Drug Dosing ml/min Est GFR ( Amer) Est GFR (Non-Af Amer) BUN/Creatinine Ratio (10-20) Glucose (70-99) mg/dl POC Glucose (other) (70-99) mg/dl POC Lactic Acid Cosme (0.90-1.70) mmol/L Calcium (8.5-10.1) mg/dl POC Ioniz Calcium Molly (1.12-1.32) mmol/l Total Bilirubin (0.2-1) mg/dl AST (15-37) U/L ALT (12-78) U/L Alkaline Phosphatase (45-117) U/L Total Creatine Kinase (39-308) U/L Troponin I (0-0.045) ng/ml NT-Pro-B Natriuret Pep (0-900) pg/ml Total Protein (6.4-8.2) gm/dl Albumin (3.4-5.0) gm/dl Globulin (2.5-4.0) gm/dl Albumin/Globulin Ratio (0.9-2) TSH (0.300-4.500) uIu/ml Urine Color Yellow Urine Appearance Cloudy A (Clear) Urine pH 5.0 (4.5-7.5) Ur Specific [place] 1.014 (1.000-1.030) Urine Protein Negative (Negative) Urine Glucose (UA) Negative (Negative) Urine Ketones Negative (Negative) Urine Blood Negative (Negative) Urine Nitrite Negative (Negative) Urine Bilirubin Negative (Negative) Urine Urobilinogen Negative (Negative) Ur Leukocyte Esterase 3+ H (Negative) Urine WBC (Auto) >30 H (0-5) /hpf Urine RBC (Auto) 0-4 (0-4) /hpf U Hyaline Cast (Auto) 0 (0-5) /lpf U Epithel Cells (Auto) 0-5 (0-5) /lpf Urine Bacteria (Auto) Negative (Negative) Salicylates (2.8-20) mg/dl Acetaminophen (10-30) ug/ml Ethyl Alcohol mg/dL (0-3) mg/dl Blood Type Antibody Screen Imaging Data Radiologist's Impression: Radiology results as stated below per my review and the radiologist's interpretation: CT head/brain wo con CT DOSE: HISTORY: Mental status change ams TECHNIQUE: Multiaxial CT images of the head were performed without the use of intravenous contrast. A dose lowering technique was utilized adhering to the principles of ALARA. Comparison: 03/26/2018 Findings: Extensive edematous change of the nasopharynx. This may be secondary to traumatic intubation. Considerable chronic small vessel change in the periventricular deep matter regions. Small old infarcts of the right thalamus and left frontal region. No midline shift. The calvarium and skull base are intact. The ventricles and sulci are within normal limits. There is no mass, hematoma, midline shift, or acute infarct. Impression: 1. No acute intracranial abnormality. 2. Age-related atrophy and chronic small vessel change. 3. Hypertrophic change of the nasal turbinates and posterior nasopharyngeal region possibly secondary to intubation efforts. The above report was generated using voice recognition software. It may contain grammatical, syntax or spelling errors. Electronically signed by: Rios Orozco M.D. 01/08/2019 4:48 PM Dictated: 01/08/19 1645 Transcribed: 01/08/19 1645 XR chest 1V portable CLINICAL HISTORY: Post intubation tube position COMPARISON STUDY: 03/26/2018 FINDINGS: Endotracheal tube 4 cm above the bridget. Lungs are considered clear. Diaphragms are smooth. Minimal atelectatic and/or interstitial change left base. IMPRESSION: Endotracheal tube in good position 4 cm above the bridget. Minimal interstitial/atelectatic change left base. The above report was generated using voice recognition software. It may contain grammatical, syntax or spelling errors. Electronically signed by: Rios Orozco M.D. 01/08/2019 4:18 PM Dictated: 01/08/19 1617 Transcribed: 01/08/19 1617 ECG Data Attestation: I personally reviewed and interpreted this ECG as follows: Indication: other (unresponsive) Rate (beats per minute): 103 Rhythm: sinus tachycardia Findings: + other (normal axis ); no PVC Blood Pressure Blood Pressure Findings: Low blood pressure Blood Pressure Disposition: further management by hospitalist VICTOR HUGO Narrative Patient is a 73-year-old male with extensive past medical history the presents the ER via EMS. She was found at the physician's office started to have severe respiratory distress. It was discovered that he was a DNR/DNI but per EMS he was answering questions appropriately and noted that he wanted to be intubated. They attempted to intubate him in the field but were unsuccessful. They did give him etomidate. Upon arrival to the ER he moans with sternal rub and would intermittently move extremities. He had a rightward gaze with his eyes closed. He was found to be 50% in the field on room air initially. IVs were established blood work was obtained. Upon presentation to the ER he was intubated emergently with IV rocuronium and ketamine. Following this patient was given IV fluids, IV antibiotics and placed on a fentanyl and Versed drip. He was josué tored closely. Drips were titrated up and down for appropriate sedation. Labs show a leukocytosis of 17,000. Hemoglobin was at 12. INR was unremarkable. VBG with a pH 7.31. BMP with a slightly elevated creatinine 1.59. Glucose was elevated at 187 and lactate was elevated 2.48. No significant transaminitis. Bilirubin was unremarkable. Troponin was negative. CK and TSH were unremarkable as well. Palacios was placed and UA does suggest a UTI and this was obtained later in his work-up while in the ER. Salicylates, acetaminophen and alcohol were negative. Patient was typed and screened. CT head chest x-ray were unremarkable. Patient was ordered a CT PE but this was not completed in [facility] ER and was said to be completed upon transfer to the unit. I did confirm the ET tube placement with review of the chest x-ray. Did contact the patient's daughter who appears to be the power of deputy attorney general and informed her that he was a DNR but changed his mind and was intubated. Discussed with the bark spudder who evaluated him at bedside as well as the hospitalist. Patient was admitted for acute respiratory failure requesting to be intubated in the field by EMS who failed and I consequently intubated him in the ER as he was unresponsive being bagged. Patient was also given thiamine and folate secondary to his previous alcoholic encephalopathy. Impression & Plan Acute respiratory failure, Altered mental status, Leukocytosis, UTI (urinary tract infection) Discharge Plan Visit Data Chief Complaint: Unresponsive Stated Complaint: UNRESPONESIVE ED Provider: Denzel Anaya Discharge Problem: Acute respiratory failure, Altered mental status, Leukocytosis, UTI (urinary tract infection) Patient Disposition: Being Evaluated by Hospitalist Forms Stand Alone Forms: My [facility] Prescriptions Prescriptions: No Action Lantus U-100 Insulin 100 unit/mL Solution 10 unit SUBCUT HS RF: 0 levetiracetam 500 mg Tablet 250 mg PO BID RF: 0 citalopram [Celexa] 20 mg Tablet 10 mg PO QDD RF: 0 lorazepam 0.5 mg Tablet 0.5 mg PO BID RF: 0 multivitamin [Tab-A-Tj] Tablet 1 tab PO DAILY RF: 0 atorvastatin 80 mg Tablet 80 mg PO HS RF: 0 acetaminophen 325 mg Tablet 650 mg PO Q6H MDD 4 GRAMS/24 HOURS PRN (Reason: Fever Or Pain) RF: 0 thiamine HCl (vitamin B1) [Vitamin B-1] 100 mg Tablet 100 mg PO DAILY RF: 0 Travatan Z 0.004 % Drops 1 drp OPB PM RF: 0 amlodipine 5 mg Tablet 5 mg PO DAILY RF: 0 lorazepam 0.5 mg Tablet 0.5 mg PO Q4H PRN (Reason: Anxiety) RF: 0 tamsulosin 0.4 mg capsule 1 cap PO QDD RF: 0 ferrous sulfate 325 mg (65 mg iron) Tablet 325 mg PO DAILY RF: 0 metformin [Glucophage] 1,000 mg Tablet 500 mg PO BID RF: 0 GlucaGen HypoKit 1 mg Recon Soln 1 mg IM DIRECTED PRN (Reason: LOW BSG<60) RF: 0 folic acid 1 mg Tablet 1 mg PO DAILY RF: 0 dorzolamide-timolol [Cosopt] 22.3-6.8 mg/mL Drops 1 drp OPB BID RF: 0 lisinopril 5 mg Tablet 1 tab PO DAILY RF: 0 alum-mag hydroxide-simeth [Jaymie-Lanta] 200-200-20 mg/5 mL Suspension 30 ml PO QPM PRN (Reason: Constipation) RF: 0 pilocarpine HCl 2 % Drops 1 drp OPB QID RF: 0 glipizide 5 mg Tablet 5 mg PO QAM RF: 0 Artificial Tears (PF) 0.1-0.3 % Dropperette 1 drp OPB TID RF: 0 omega [id number]-uqr-[id number] oil [Fish Oil] 1,000 mg (120 mg-180 mg) Capsule 1 cap PO DAILY RF: 0 PreserVision AREDS-2 [id number] Capsule 1 tab PO DAILY RF: 0 Referrals Referrals: Marely oHlm MD [Physician] - The scribe's documentation has been prepared under my direction and personally reviewed by me in its entirety. I confirm that the note above accurately refle cts all work, treatment, procedures, and medical decision making performed by me.
--- NOTE | 2019-01-08 18:39 | CT Scan Report ---
CT angio chest PE protocol CT DOSE: HISTORY: Dyspnea +dd and cp TECHNIQUE: Multiaxial CT images of the chest were performed following the intravenous administration of contrast to evaluate the pulmonary arteries. Maximal intensity projection images were also obtaine d. A dose lowering technique was utilized adhering to the principles of ALARA. COMPARISON STUDY: None. FINDINGS: There is a normal caliber thoracic aorta with no evidence for dissection. There is no evide nce for pulmonary embolus. No pleural effusions. No pneumothorax. The liver and spleen are unremarkab le. No mediastinal or hilar lymphadenopathy. The central airways are patent. The lungs are remarkable for bibasilar parenchymal infiltrative change. There are findings of right upper atelectatic change. . IMPRESSION: 1. Study is negative for pulmonary embolus. 2. Bibasilar parenchymal infiltrates. 3. Scattered right upper lobe atelectatic change. The above report was generated using voice recognition software. It may contain grammatical, syntax or spelling errors. Electronically signed by: Rios Orozco M.D. 01/08/2019 6:37 PM
[2019-01-08] MEDS ORDERED: GLUCAGON FOR INJ 1 MG VIAL SQ PRN (19:01)
[2019-01-08] MEDS ORDERED: DEXTROSE 50% 50 ML SYRINGE IV PRN (19:01)
[2019-01-08] MEDS ORDERED: GLUCOSE 10 TABS/TUBE PO PRN (19:01)
[2019-01-08] MEDS ORDERED: ICU PROTOCOL FOR HYPERGLYCEMIA SCH (19:01)
[2019-01-08] MEDS ORDERED: CARBOHYDRATES FOR HYPOGLYCEMIA PO PRN (19:01)
[2019-01-08] MEDS ORDERED: ICU PROTOCOL FOR HYPERGLYCEMIA PRN (19:01)
[2019-01-08] MEDS ORDERED: GLUCOSE 40% GEL 15 GM TUBE PO PRN (19:01)
[2019-01-08] MEDS ORDERED: SENNA 8.6 MG TAB PO PRN (19:01)
[2019-01-08] MEDS ORDERED: Nursing to Pharmacy Communication ONE (19:14)
[2019-01-08] MEDS: ALBUT/IPRATROP 3MG/0.5MG NEB 3 ML VIAL INH SCH (19:44)
[2019-01-08] MEDS ORDERED: PHARMACY GLYCEMIC MGMT CONSULT PRN (19:44)
[2019-01-08] MEDS ORDERED: LEVOFLOXACIN/D5W 750 MG/150 ML BAG IV SCH (20:00)
[2019-01-08] MEDS: PROPOFOL 1,000 MG/100 ML VIAL IV SCH (20:03)
[2019-01-08] MEDS: NORMOSOL-R 1,000 ML IV SCH (20:04)
[2019-01-08] MEDS ORDERED: INSULIN GLARGINE SOLOSTAR 100 UNITS/ML 3 ML PEN SC ONE (20:30)
[2019-01-08] MEDS: FAMOTIDINE 20 MG in SYRINGE 3 ML IV SCH (20:38)
[2019-01-08] MEDS: INSULIN ASPART 100 UNITS/ML 3 ML PEN SC SCH (20:54)
[2019-01-08] MEDS: PILOCARPINE HCL 2% OP SOLN 15 ML BTL OPB SCH (20:55)
[2019-01-08] MEDS: TRAVOPROST Z 0.004% OPH SOLN 2.5 ML BTL OPB SCH (20:56)
[2019-01-08] MEDS: cefTRIAXone SODIUM 1,000 MG in DEXTROSE 5% 50 ML IV SCH (20:56)
[2019-01-08] MEDS: DORZOLAMIDE/TIMOLOL 22.3/6.8MG/ML 10 ML BTL OPB SCH (20:56)
[2019-01-08] MEDS: HEPARIN SOD 5,000 UNIT/0.5 ML VIAL SQ SCH (20:57)
[2019-01-09] MEDS: INSULIN ASPART 100 UNITS/ML 3 ML PEN SC SCH ×6 (00:01→23:35)
[2019-01-09] MEDS ORDERED: SEVERE STRESS LEVEL ONE (00:15)
[2019-01-09] MEDS ORDERED: INSULIN PROTOCOL GOAL RANGE ONE (00:15)
[2019-01-09] MEDS ORDERED: INSULIN REGULAR 250 UNITS in SODIUM CHLORIDE 0.9% 247.5 ML IV SCH (00:30)
[2019-01-09] MEDS ORDERED: NovoLIN-R BOLUS FROM BAG IV ONE (00:30)
[2019-01-09] MEDS: ALBUT/IPRATROP 3MG/0.5MG NEB 3 ML VIAL INH SCH ×4 (01:24→19:24)
--- NOTE | 2019-01-09 03:09 | Procedure Note ---
Procedure Note Date of Service January 09, 2019 Procedure: Alf Indwelling Peripherally Inserted IV Catheter Placement Attending: Dr. Smith APC: Gabriele Butler PA-C Indication: Need for IV Access, Poor Vascular Access Anesthesia: None A time-out was completed verifying correct patient, procedure, site, positioning, and implant(s) or special equipment if applicable. Utilizing bedside ultrasound, vascularity of the LEFT upper extremity was assessed. Vessel size was noted for appropriate catheter selection and skin was marked with gentle pressure. Patients LEFT upper extremity was prepped and draped in the usual sterile fashion utilizing chlorhexidine. Ultrasound guidance was used to aid needle placement. A 22 g Endurance Catheter was introduced into the LEFT Cephalic vein under direct ultrasound guidance. Guide wire was easily deployed without resistance. Catheter was threaded over the guide wire without resistance and the entire apparatus was removed intact. Good venous blood return was noted in the catheter. The IV catheter was easily flushed with sterile saline flush. Sterile clave was attached to the end of the catheter and good blood return was again noted. Tourniquet was released. StatLock device and sterile dressing were applied. The patient tolerated the procedure well. Blood Loss: Minimal Complications: None Procedural Ultrasound Guidance: Procedure Date: 01/09/2019 Indication: Poor Vascular Access Attending: Dr. Smith APC: Gabriele Butler PA-C Artery/Veins Identified: YES Access confirmed in Vein with ultrasound: YES Complications: NONE Patient tolerated procedure: WELL Coding
--- NOTE | 2019-01-09 03:10 | Procedure Note ---
Procedure Note Date of Service January 09, 2019 Procedure: Detention Indwelling Peripherally Inserted IV Catheter Placement Attending: Dr. Smith APC: Gabriele Butler PA-C Indication: Need for IV Access, Poor Vascular Access Anesthesia: None A time-out was completed verifying correct patient, procedure, site, positioning, and implant(s) or special equipment if applicable. Utilizing bedside ultrasound, vascularity of the RIGHT upper extremity was assessed. Vessel size was noted for appropriate catheter selection and skin was marked wit h gentle pressure. Patients RIGHT upper extremity was prepped and draped in the usual sterile fashion utilizing chlorhexidine. Ultrasound guidance was used to aid needle placement. An 18 g Endurance Catheter was introduced into the RIGHT Brachial vein under direct ultrasound guidance. Guide wire was easily deployed without resistance. Catheter was threaded over the guide wire without resistance and the entire apparatus was removed intact. Good venous blood return was noted in the catheter. The IV catheter was easily flushed with sterile saline flush. Sterile clave was attached to the end of the catheter and good blood return was again noted. Tourniquet was released. StatLock device and sterile dressing were applied. The patient tolerated the procedure well. Blood Loss: Minimal Complications: None Procedural Ultrasound Guidance: Procedure Date: 01/09/2019 Indication: Poor Vascular Access Attending: Dr. Smith APC: Gabriele Butler PA-C Artery/Veins Identified: YES Access confirmed in Vein with ultrasound: YES Complications: NONE Patient tolerated procedure: WELL Coding
[2019-01-09] MEDS ORDERED: NORMOSOL-R 500 ML IV ONE ×2 (03:22→05:07)
[2019-01-09 04:41] LABS: Basophils # (auto) 0.01 K/uL (0-0.2); Basophils % (auto) 0.1 %; Eosinophils # (auto) 0.03 K/uL (0-0.5); Eosinophils % (auto) 0.3 %; Hematocrit (blood only) 28.6 % (42-52); Hemoglobin 10.1 g/dL (14.0-18.0); Immature Granulocytes # (auto) 0.03 K/uL (0.00-0.02); Immature Granulocytes % (auto) 0.3 %; Lymphocytes # (auto) 0.98 K/uL (1.2-3.4); Lymphocytes % (auto) 9.2 %; Mean Corpuscular Hgb Conc 35.3 g/dL (32-36); Mean Corpuscular Volume 87.7 fL (80-100); Mean Platelet Volume 10.4 fL (7.4-10.4); Monocytes # (auto) 0.48 K/uL (0.11-0.59); Monocytes % (auto) 4.5 %; Neutrophils # (auto) 9.11 K/uL (1.4-6.5); Neutrophils % (auto) 85.6 %; Platelet Count 146 K/uL (130-400); RDW Coefficient of Variation 12.8 % (11.5-14.5); RDW Standard Deviation 41.4 fL (36.4-46.3); Red Blood Count 3.26 M/uL (4.7-6.1); White Blood Count 10.64 K/uL (4.8-10.8)
[2019-01-09] MEDS: HEPARIN SOD 5,000 UNIT/0.5 ML VIAL SQ SCH ×3 (04:52→21:31)
[2019-01-09] MEDS: NORMOSOL-R 1,000 ML IV SCH ×2 (04:52→13:10)
[2019-01-09] MEDS: PROPOFOL 1,000 MG/100 ML VIAL IV SCH (04:52)
[2019-01-09 04:56] LABS: BUN Creatinine Ratio 17.9 (10-20); Calcium 7.5 mg/dl (8.5-10.1); Creatinine Clr Calc Pharmacy 32.7 ml/min; Est GFR (African American) 50.3; Est GFR (Non-African American) 43.4; Magnesium 1.8 mg/dl (1.8-2.4); Phosphorus 3.2 mg/dl (2.5-4.9); Potassium 4.3 mmol/L (3.5-5.1)
[2019-01-09 05:50] LABS: iSTAT Allen Test Pass; iSTAT Art Bld Gas pCO2 Correct 34 mmHg (35-46); iSTAT Art Bld Gas pH Corrected 7.349 (7.35-7.45); iSTAT Arterial Blood Gas HCO3 19 meg/L (19-24); iSTAT Arterial Blood Gas pCO2 34 mmHg (35-46); iSTAT Arterial Blood Gas pH 7.34 (7.35-7.45); iSTAT Carbon Dioxide 20 mEq/l (24-31); iSTAT FiO2 30 %; iSTAT Site R Radial
[2019-01-09 06:17] LABS: Estimated Average Glucose 148 mg/dl; Hemoglobin A1C 6.8 % (4.5-5.6)
--- NOTE | 2019-01-09 07:05 | XRay Report ---
XR chest 1V portable HISTORY: 73 years-old Male intubation acute respiratory failure COMPARISON: Chest radiograph and CTA chest 01/08/2019 TECHNIQUE: Portable AP view of the chest FINDINGS: Endotracheal tube overlies the midline, 4.3 cm superior to the bridget. Enteric tube courses below the diaphragm outside the [id number]. Mild subsegmental left basilar opacities are redemonstrated. Ca lcified plaque of the thoracic aorta. Mild emphysema. No pneumothorax, pleural effusion or overt pulm onary edema. Degenerative changes of the shoulders and spine. IMPRESSION: 1. Endotracheal tube terminates 4.3 cm superior to the bridget. 2. Unchanged left lung base opacities. 3. Emphysema. The above report was generated using voice recognition software. It may contain grammatical, syntax o r spelling errors. Electronically signed by: Kev Haro M.D. 01/09/2019 7:04 AM
--- NOTE | 2019-01-09 07:19 | Critical Care Progress Note ---
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 Documented by: [id number] Titration: 01/08/19 19:01 Dose: 50 mcg/hr, 10 mls/hr Documented by: [id number] Cosigned by: [id number] Admin: 01/08/19 17:04 Dose: 25 mcg/hr, 5 mls/hr Documented by: [id number] Cosigned by: [id number] Midazolam HCl (Versed) 125 mg in 250 mls @ 8 mls/hr IV .Q24H STA; Protocol Stop: 01/09/19 16:12 Last Titration: 01/08/19 20:30 Dose: 0 mg/hr, 0 mls/hr Documented by: [id number] Titration: 01/08/19 19:01 Dose: 4 mg/hr, 8 mls/hr Documented by: [id number] Cosigned by: [id number] Admin: 01/08/19 17:04 Dose: 1 mg/hr, 2 mls/hr Documented by: [id number] Cosigned by: [id number] Propofol (Diprivan) 1,000 mg in 100 mls @ 5.76 mls/hr IV .[id number] MAKAYLA; Protocol Stop: 01/11/19 19:00 Last Titration: 01/09/19 06:14 Dose: 15 mcg/kg/min, 5.8 mls/hr Documented by: [id number] Admin: 01/09/19 04:52 Dose: 25 mcg/kg/min, 9.6 mls/hr Documented by: [id number] Cosigned by: [id number] Titration: 01/09/19 04:52 Dose: 25 mcg/kg/min, 9.6 mls/hr Documented by: [id number] Cosigned by: [id number] Titration: 01/09/19 01:55 Dose: 25 mcg/kg/min, 9.6 mls/hr Documented by: [id number] Titration: 01/08/19 23:00 Dose: 20 mcg/kg/min, 7.7 mls/hr Documented by: [id number] Titration: 01/08/19 22:00 Dose: 15 mcg/kg/min, 5.8 mls/hr Documented by: [id number] Titration: 01/08/19 21:00 Dose: 10 mcg/kg/min, 3.8 mls/hr Documented by: [id number] Admin: 01/08/19 20:03 Dose: 5 mcg/kg/min, 1.9 mls/hr Documented by: [id number] Cosigned by: [id number] Ceftriaxone Sodium 1,000 mg/ (Dextrose) 50 mls @ 100 mls/hr IV Q24H MAKAYLA; Protocol Stop: 01/10/19 20:59 Last Infusion: 01/08/19 21:26 Dose: 0 mls/hr Documented by: [id number] Admin: 01/08/19 20:56 Dose: 100 mls/hr Documented by: [id number] Levofloxacin/Dextrose (Levaquin/D5w) 750 mg in 150 mls @ 100 mls/hr IV Q48H MAKAYLA; Protocol Stop: 01/15/19 19:59 Last Infusion: 01/08/19 21:55 Dose: 0 mls/hr Documented by: [id number] Admin: 01/08/19 20:25 Dose: 100 mls/hr Documented by: [id number] Famotidine 20 mg/ Syringe 5 mls @ 2.5 mls/min IV Q12H MAKAYLA Stop: 02/07/19 20:59 Last Admin: 01/08/19 20:38 Dose: 2.5 mls/min Documented by: [id number] Parenteral Electrolytes (Normosol-R) 1,000 mls @ 100 mls/hr IV .Q10H MAKAYLA Stop: 02/07/19 19:29 Last Infusion: 01/09/19 06:14 Dose: 100 mls/hr Documented by: [id number] Admin: 01/09/19 04:52 Dose: 100 mls/hr Documented by: [id number] Infusion: 01/09/19 04:52 Dose: 100 mls/hr Documented by: [id number] Infusion: 01/09/19 01:55 Dose: 100 mls/hr Documented by: [id number] Admin: 01/08/19 20:04 Dose: 100 mls/hr Documented by: [id number] Insulin Human Regular 250 (units/ Sodium Chloride) 250 mls @ 2.1 mls/hr IV .Q24H MAKAYLA; Protocol Stop: 02/08/19 00:29 Last Titration: 01/09/19 06:00 Dose: 2.1 units/hr, 2.1 mls/hr Documented by: [id number] Cosigned by: [id number] Titration: 01/09/19 04:55 Dose: 2.1 units/hr, 2.1 mls/hr Documented by: [id number] Cosigned by: [id number] Titration: 01/09/19 03:58 Dose: 2.1 units/hr, 2.1 mls/hr Documented by: [id number] Cosigned by: [id number] Titration: 01/09/19 02:52 Dose: 2.1 units/hr, 2.1 mls/hr Documented by: [id number] Cosigned by: [id number] Titration: 01/09/19 01:55 Dose: 2.1 units/hr, 2.1 mls/hr Documented by: [id number] Cosigned by: [id number] Admin: 01/09/19 00:54 Dose: 2.1 units/hr, 2.1 mls/hr Documented by: [id number] Cosigned by: [id number] Pilocarpine HCl (Isopto Carpine 2% Oph Soln) 1 drops OPB QID MAKAYLA Stop: 02/07/19 20:59 Last Admin: 01/08/19 20:55 Dose: 1 drops Documented by: [id number] PG Care Time/CCT Total # of Minutes Spent Total Time Spent with Patient: Total time spent is greater than 50% in coordination of care (as documented) at patient's floor/unit and/or counseling patient: Critical Care Time: Yes Total Critical Care Time: 45 (1) Acute respiratory failure Respiratory failure complication: unspecified whether with hypoxia or hypercapnia Qualified Code(s): J96.00 - Acute respiratory failure, unspecified whether with hypoxia or hypercapnia (2) Leukocytosis Leukocytosis type: unspecified Qualified Code(s): D72.829 - Elevated white blood cell count, unspecified (3) Altered mental status Altered mental status type: unspecified Qualified Code(s): R41.82 - Altered mental status, unspecified
[2019-01-09] MEDS: DORZOLAMIDE/TIMOLOL 22.3/6.8MG/ML 10 ML BTL OPB SCH ×2 (07:44→21:02)
[2019-01-09] MEDS: PILOCARPINE HCL 2% OP SOLN 15 ML BTL OPB SCH ×4 (07:44→21:02)
[2019-01-09] MEDS: FAMOTIDINE 20 MG in SYRINGE 3 ML IV SCH (07:44)
--- NOTE | 2019-01-09 08:25 | Hospitalist Progress Note ---
Date of Service January 09, 2019 Assessment & Plan (1) Acute respiratory failure: Acute respiratory failure noted at [facility]. EMS summoned. Intubation attempted in the field, but not successful. Received assisted ventilation en route. Intubated in ED at patient's request. CTA chest negative for pulmonary embolism, but demonstrated bibasilar infiltrates. Respiratory failure probably secondary to pneumonia with underlying COPD. Vent management/weaning per Critical Care Medicine. (2) Severe sepsis: Met criteria for severe sepsis in the ED per current CMS criteria. Most likely source pneumonia. Blood cultures obtained. Receiving broad-spectrum antibiotics. Serum lactate elevated and trended. Fluctuating hemodynamics. Had hypotension during the night, but hypotension could be attributed to sedation with propofol. Nasal MRSA screen negative,So MRSA pneumonia very unlikely. Currently receiving levofloxacin and ceftriaxone. (3) Pneumonia: As noted above. Consider possibility of aspiration pneumonia. Consider PIG[employer]CI[employer] eval when patient's condition allows. (4) Altered mental status: Increasing confusion at time of admission. CT head showed chronic small vessel disease, no acute findings. Probable encephalopathy secondary to sepsis and/or respiratory failure. (5) Abnormal EKG: EKG this morning shows fluctuating baseline, ? ST elevation inferiorly. Initial troponin negative. Follow. (6) PRETTY (acute kidney injury): Serum creatinine at time of admission 1.59 compared to baseline of 0.76 on 03/28/2018. Creatinine this morning = 1.56. Follow. (7) History of CVA (cerebrovascular accident): Daughter reports history of ischemic strokes. CT head without contrast demonstrates small vessel ischemic changes. (8) HTN (hypertension): Blood pressures low at times. Follow and titrate antihypertensive therapy. (9) Diabetes mellitus, type II: History of diabetes mellitus type 2. Hemoglobin A1c 6.8. Hold metformin and glipizide during hospital stay. Currently receiving IV insulin per ICU protocol. Blood sugar this morning 158. (10) HLD (hyperlipidemia): Resume atorvastatin when able to take oral medications. (11) BPH (benign prostatic hyperplasia): Prescribed tamsulosin; resume when able to take oral medications. Currently has Palacios catheter-remove when possible. (12) Dementia: History of dementia leading to senior care placement about 2 years ago. Daughter indicates that dementia has been attributed to cerebrovascular disease and/or alcohol use. Monitor for delirium. Avoid anticholinergic agents and other medications with [employer] side effects whenever possible. (13) MRSA (methicillin resistant Staphylococcus aureus) carrier: History of positive nasal MRSA screen 03/26/2018 at this facility. Nasal MRSA screen negative at time of this admission. Contact isolation should be continued until 2 negative MRSA screens confirmed. (14) Do not resuscitate status: DNR status confirmed with daughter/POA. However, patient requested intubation in the Emergency Department and daughter confirms that short-term support with mechanical ventilation would be appropriate. (15) DVT prophylaxis: Receiving SQ heparin. SCD applied to left lower extremity. (16) Admitted to intensive care unit: Vent management per CCM. Glycemic management per protocol. VTE prophylaxis as noted above. GI prophylaxis- famotidine. (17) Discharge planning issues: Anticipated need for skilled care after recovery from acute illness. Follow-up with Dr. Gaspar at [facility]. Daughter visiting and given update. Subjective Recheck for respiratory failure and other problems. Patient seen in their room around 0800. Daughter and son-in-law from [facility] at bedside. Patient remains intubated. Propofol held for CPAP trial. Nursing staff reports almazan secretions upon suctioning from ET tube. Review of Systems Review of Systems: Unobtainable due to cognitive status Physical Exam Constitutional: no acute distress ENMT: external ear and nose normal, oropharynx normal (oral ET tube, oral G- tube) Neck: trachea midline, no thyromegaly Respiratory: no respiratory distress Auscultation: + rhonchi (few, scattered) and + wheezes diffuse, mild Cardiovascular: Rate/Rhythm: regular rate (distant heart sounds) and regular rhythm Heart Sounds: no gallop, no murmur and no cardiac rub Vessels: no JVD Extremities: no calf tenderness and no edema Gastrointestinal (Abdomen): Inspection/Auscultation: + abnormal bowel sounds (quiet) Percussion/Palpation: abdomen soft; abdomen nontender Musculoskeletal: Extremities: + amputation noted (right BKA); no cyanosis SCD applied to LLE Skin: no rashes, warm and dry Neurologic: + not awake (sedated) Psychiatric: Orientation: + not alert Genitourinary: + bladder abnormality (Palacios catheter) Results & Data Vital Signs (Past 12 Hours) Vital Signs Temp Pulse Pulse Resp BP BP Pulse Ox 01/09/19 08:00 36.5 C 92 H 102/55 L 99 01/09/19 07:31 74 10 L 100 01/09/19 07:00 72 117/55 L 100 01/09/19 06:47 70 16 94/46 L 100 01/09/19 06:00 75 16 79/50 L 100 01/09/19 05:00 75 76 16 84/56 L 100 01/09/19 04:00 36.6 C 80 16 88/55 L 100 01/09/19 03:00 85 16 83/49 L 01/09/19 02:00 95 H 16 87/36 L 01/09/19 01:25 76 16 100 01/09/19 01:00 78 16 97/59 L 100 01/09/19 00:00 36.6 C 79 84 16 110/68 100 01/08/19 23:00 85 16 106/64 100 01/08/19 22:40 89 16 100 01/08/19 22:00 87 16 88/53 L 01/08/19 21:46 79 16 100 01/08/19 21:00 82 16 111/67 100 Laboratory Results Laboratory Results - last 24 hr 01/08/19 01/08/19 01/08/19 16:00 16:00 16:00 WBC 17.11 H RBC 3.93 L Hgb 12.0 L POC Hgb Hct 34.6 L POC Hct MCV 88.0 MCH 30.5 MCHC 34.7 RDW Std Deviation 41.0 RDW Coeff of Isadora 12.7 Plt Count 177 MPV 9.9 Immature Gran % (Auto) 0.2 Neut % (Auto) 86.9 Lymph % (Auto) 8.1 [place] % (Auto) 4.3 Eos % (Auto) 0.4 Baso % (Auto) 0.1 Immature Gran # (Auto) 0.03 H Neut # (Auto) 14.87 H Lymph # (Auto) 1.38 [place] # (Auto) 0.74 H Eos # (Auto) 0.07 Baso # (Auto) 0.02 PT 10.9 INR 1.1 Sample Site POC pH POC pCO2 POC pO2 POC HCO3 POC Base Excess ABG pH (Temp Correct) ABG pCO2 (Temp Corrct POC ABG pO2 at Pt Temp POC ABG O2 Sat Isaac Test VBG pH VBG pCO2 VBG pO2 VBG HCO3 VBG O2 Saturation VBG Base Excess Barometric Pressure O2 Delivery Device POC O2 Rate Minute Ventilation POC FiO2 Tidal Volume PEEP POC Sodium Sodium 140 POC Potassium Potassium 4.9 POC Chloride Chloride 109 H Carbon Dioxide 21 POC Total CO2 Anion Gap 10.0 POC Anion Gap POC BUN BUN 28 H Creatinine 1.59 H POC Creatinine Est Cr Clr Drug Dosing 37.5 Est GFR ( Amer) 49.2 Est GFR (Non-Af Amer) 42.4 BUN/Creatinine Ratio 17.6 Glucose 178 H POC Glucose POC Glucose (other) Estimat Average Glucose Hemoglobin A1c POC Lactic Acid Cosme Lactate Calcium 8.8 POC Ioniz Calcium Molly Phosphorus Magnesium Total Bilirubin 0.7 AST 25 ALT 22 Alkaline Phosphatase 122 H Total Creatine Kinase 156 Troponin I < 0.015 NT-Pro-B Natriuret Pep 259 Total Protein 6.6 Albumin 3.7 Globulin 2.9 Albumin/Globulin Ratio 1.3 TSH 3.260 Urine Color Urine Appearance Urine pH Ur Specific [place] Urine Protein Urine Glucose (UA) Urine Ketones Urine Blood Urine Nitrite Urine Bilirubin Urine Urobilinogen Ur Leukocyte Esterase Urine WBC (Auto) Urine RBC (Auto) U Hyaline Cast (Auto) U Epithel Cells (Auto) Urine Bacteria (Auto) Nasal Screen MRSA (PCR) Salicylates Acetaminophen Ethyl Alcohol mg/dL Blood Type Antibody Screen 01/08/19 01/08/19 01/08/19 16:00 16:07 16:18 WBC RBC Hgb POC Hgb 11.2 L Hct POC Hct 33 L MCV MCH MCHC RDW Std Deviation RDW Coeff of Isadora Plt Count MPV Immature Gran % (Auto) Neut % (Auto) Lymph % (Auto) [place] % (Auto) Eos % (Auto) Baso % (Auto) Immature Gran # (Auto) Neut # (Auto) Lymph # (Auto) [place] # (Auto) Eos # (Auto) Baso # (Auto) PT INR Sample Site POC pH POC pCO2 POC pO2 POC HCO3 POC Base Excess ABG pH (Temp Correct) ABG pCO2 (Temp Corrct POC ABG pO2 at Pt Temp POC ABG O2 Sat Isaac Test VBG pH VBG pCO2 VBG pO2 VBG HCO3 VBG O2 Saturation VBG Base Excess Barometric Pressure O2 Delivery Device POC O2 Rate Minute Ventilation POC FiO2 Tidal Volume PEEP POC Sodium 138 Sodium POC Potassium 5.0 Potassium POC Chloride 106 Chloride Carbon Dioxide POC Total CO2 20 L Anion Gap POC Anion Gap 18.0 POC BUN 27 H BUN Creatinine POC Creatinine 1.6 H Est Cr Clr Drug Dosing Est GFR ( Amer) Est GFR (Non-Af Amer) BUN/Creatinine Ratio Glucose POC Glucose POC Glucose (other) 187 H Estimat Average Glucose Hemoglobin A1c POC Lactic Acid Cosme Lactate Calcium POC Ioniz Calcium Molly 1.23 Phosphorus Magnesium Total Bilirubin AST ALT Alkaline Phosphatase Total Creatine Kinase Troponin I NT-Pro-B Natriuret Pep Total Protein Albumin Globulin Albumin/Globulin Ratio TSH Urine Color Urine Appearance Urine pH Ur Specific [place] Urine Protein Urine Glucose (UA) Urine Ketones Urine Blood Urine Nitrite Urine Bilirubin Urine Urobilinogen Ur Leukocyte Esterase Urine WBC (Auto) Urine RBC (Auto) U Hyaline Cast (Auto) U Epithel Cells (Auto) Urine Bacteria (Auto) Nasal Screen MRSA (PCR) Salicylates < 1.7 L Acetaminophen < 2 L Ethyl Alcohol mg/dL Blood Type AB Positive Antibody Screen NEGATIVE 01/08/19 01/08/19 01/08/19 16:18 16:23 16:27 WBC RBC Hgb POC Hgb Hct POC Hct MCV MCH MCHC RDW Std Deviation RDW Coeff of Isadora Plt Count MPV Immature Gran % (Auto) Neut % (Auto) Lymph % (Auto) [place] % (Auto) Eos % (Auto) Baso % (Auto) Immature Gran # (Auto) Neut # (Auto) Lymph # (Auto) [place] # (Auto) Eos # (Auto) Baso # (Auto) PT INR Sample Site POC pH POC pCO2 POC pO2 POC HCO3 POC Base Excess ABG pH (Temp Correct) ABG pCO2 (Temp Corrct POC ABG pO2 at Pt Temp POC ABG O2 Sat Isaac Test VBG pH 7.31 L VBG pCO2 39 VBG pO2 138 VBG HCO3 19 VBG O2 Saturation 98.8 VBG Base Excess -6.5 Barometric Pressure 731.7 O2 Delivery Device POC O2 Rate Minute Ventilation POC FiO2 Tidal Volume PEEP POC Sodium Sodium POC Potassium Potassium POC Chloride Chloride Carbon Dioxide POC Total CO2 Anion Gap POC Anion Gap POC BUN BUN Creatinine POC Creatinine Est Cr Clr Drug Dosing Est GFR ( Amer) Est GFR (Non-Af Amer) BUN/Creatinine Ratio Glucose POC Glucose POC Glucose (other) Estimat Average Glucose Hemoglobin A1c POC Lactic Acid Cosme 2.48 H Lactate Calcium POC Ioniz Calcium Molly Phosphorus Magnesium Total Bilirubin AST ALT Alkaline Phosphatase Total Creatine Kinase Troponin I NT-Pro-B Natriuret Pep Total Protein Albumin Globulin Albumin/Globulin Ratio TSH Urine Color Urine Appearance Urine pH Ur Specific [place] Urine Protein Urine Glucose (UA) Urine Ketones Urine Blood Urine Nitrite Urine Bilirubin Urine Urobilinogen Ur Leukocyte Esterase Urine WBC (Auto) Urine RBC (Auto) U Hyaline Cast (Auto) U Epithel Cells (Auto) Urine Bacteria (Auto) Nasal Screen MRSA (PCR) Salicylates Acetaminophen Ethyl Alcohol mg/dL < 3.0 Blood Type Antibody Screen 01/08/19 01/08/19 01/08/19 17:00 19:10 19:39 WBC RBC Hgb POC Hgb Hct POC Hct MCV MCH MCHC RDW Std Deviation RDW Coeff of Isadora Plt Count MPV Immature Gran % (Auto) Neut % (Auto) Lymph % (Auto) [place] % (Auto) Eos % (Auto) Baso % (Auto) Immature Gran # (Auto) Neut # (Auto) Lymph # (Auto) [place] # (Auto) Eos # (Auto) Baso # (Auto) PT INR Sample Site POC pH POC pCO2 POC pO2 POC HCO3 POC Base Excess ABG pH (Temp Correct) ABG pCO2 (Temp Corrct POC ABG pO2 at Pt Temp POC ABG O2 Sat Isaac Test VBG pH VBG pCO2 VBG pO2 VBG HCO3 VBG O2 Saturation VBG Base Excess Barometric Pressure O2 Delivery Device POC O2 Rate Minute Ventilation POC FiO2 Tidal Volume PEEP POC Sodium Sodium POC Potassium Potassium POC Chloride Chloride Carbon Dioxide POC Total CO2 Anion Gap POC Anion Gap POC BUN BUN Creatinine POC Creatinine Est Cr Clr Drug Dosing Est GFR ( Amer) Est GFR (Non-Af Amer) BUN/Creatinine Ratio Glucose POC Glucose POC Glucose (other) Estimat Average Glucose Hemoglobin A1c POC Lactic Acid Cosme Lactate 1.4 Calcium POC Ioniz Calcium Molly Phosphorus Magnesium Total Bilirubin AST ALT Alkaline Phosphatase Total Creatine Kinase Troponin I NT-Pro-B Natriuret Pep Total Protein Albumin Globulin Albumin/Globulin Ratio TSH Urine Color Yellow Urine Appearance Cloudy A Urine pH 5.0 Ur Specific [place] 1.014 Urine Protein Negative Urine Glucose (UA) Negative Urine Ketones Negative Urine Blood Negative Urine Nitrite Negative Urine Bilirubin Negative Urine Urobilinogen Negative Ur Leukocyte Esterase 3+ H Urine WBC (Auto) >30 H Urine RBC (Auto) 0-4 U Hyaline Cast (Auto) 0 U Epithel Cells (Auto) 0-5 Urine Bacteria (Auto) Negative Nasal Screen MRSA (PCR) Negative Salicylates Acetaminophen Ethyl Alcohol mg/dL Blood Type Antibody Screen 01/08/19 01/08/19 01/08/19 20:37 20:42 23:48 WBC RBC Hgb POC Hgb Hct POC Hct MCV MCH MCHC RDW Std Deviation RDW Coeff of Isadora Plt Count MPV Immature Gran % (Auto) Neut % (Auto) Lymph % (Auto) [place] % (Auto) Eos % (Auto) Baso % (Auto) Immature Gran # (Auto) Neut # (Auto) Lymph # (Auto) [place] # (Auto) Eos # (Auto) Baso # (Auto) PT INR Sample Site POC pH POC pCO2 POC pO2 POC HCO3 POC Base Excess ABG pH (Temp Correct) ABG pCO2 (Temp Corrct POC ABG pO2 at Pt Temp POC ABG O2 Sat Isaac Test VBG pH VBG pCO2 VBG pO2 VBG HCO3 VBG O2 Saturation VBG Base Excess Barometric Pressure O2 Delivery Device POC O2 Rate Minute Ventilation POC FiO2 Tidal Volume PEEP POC Sodium Sodium POC Potassium Potassium POC Chloride Chloride Carbon Dioxide POC Total CO2 Anion Gap POC Anion Gap POC BUN BUN Creatinine POC Creatinine Est Cr Clr Drug Dosing Est GFR ( Amer) Est GFR (Non-Af Amer) BUN/Creatinine Ratio Glucose POC Glucose 212 H 212 H 223 H POC Glucose (other) Estimat Average Glucose Hemoglobin A1c POC Lactic Acid Cosme Lactate Calcium POC Ioniz Calcium Molly Phosphorus Magnesium Total Bilirubin AST ALT Alkaline Phosphatase Total Creatine Kinase Troponin I NT-Pro-B Natriuret Pep Total Protein Albumin Globulin Albumin/Globulin Ratio TSH Urine Color Urine Appearance Urine pH Ur Specific [place] Urine Protein Urine Glucose (UA) Urine Ketones Urine Blood Urine Nitrite Urine Bilirubin Urine Urobilinogen Ur Leukocyte Esterase Urine WBC (Auto) Urine RBC (Auto) U Hyaline Cast (Auto) U Epithel Cells (Auto) Urine Bacteria (Auto) Nasal Screen MRSA (PCR) Salicylates Acetaminophen Ethyl Alcohol mg/dL Blood Type Antibody Screen 01/09/19 01/09/19 01/09/19 00:29 02:50 03:56 WBC RBC Hgb POC Hgb Hct POC Hct MCV MCH MCHC RDW Std Deviation RDW Coeff of Isadora Plt Count MPV Immature Gran % (Auto) Neut % (Auto) Lymph % (Auto) [place] % (Auto) Eos % (Auto) Baso % (Auto) Immature Gran # (Auto) Neut # (Auto) Lymph # (Auto) [place] # (Auto) Eos # (Auto) Baso # (Auto) PT INR Sample Site POC pH POC pCO2 POC pO2 POC HCO3 POC Base Excess ABG pH (Temp Correct) ABG pCO2 (Temp Corrct POC ABG pO2 at Pt Temp POC ABG O2 Sat Isaac Test VBG pH VBG pCO2 VBG pO2 VBG HCO3 VBG O2 Saturation VBG Base Excess Barometric Pressure O2 Delivery Device POC O2 Rate Minute Ventilation POC FiO2 Tidal Volume PEEP POC Sodium Sodium POC Potassium Potassium POC Chloride Chloride Carbon Dioxide POC Total CO2 Anion Gap POC Anion Gap POC BUN BUN Creatinine POC Creatinine Est Cr Clr Drug Dosing Est GFR ( Amer) Est GFR (Non-Af Amer) BUN/Creatinine Ratio Glucose POC Glucose 182 H 157 H POC Glucose (other) Estimat Average Glucose Hemoglobin A1c POC Lactic Acid Cosme Lactate 3.0 H* Calcium POC Ioniz Calcium Molly Phosphorus Magnesium Total Bilirubin AST ALT Alkaline Phosphatase Total Creatine Kinase Troponin I NT-Pro-B Natriuret Pep Total Protein Albumin Globulin Albumin/Globulin Ratio TSH Urine Color Urine Appearance Urine pH Ur Specific [place] Urine Protein Urine Glucose (UA) Urine Ketones Urine Blood Urine Nitrite Urine Bilirubin Urine Urobilinogen Ur Leukocyte Esterase Urine WBC (Auto) Urine RBC (Auto) U Hyaline Cast (Auto) U Epithel Cells (Auto) Urine Bacteria (Auto) Nasal Screen MRSA (PCR) Salicylates Acetaminophen Ethyl Alcohol mg/dL Blood Type Antibody Screen 01/09/19 01/09/19 01/09/19 04:33 04:33 04:33 WBC 10.64 RBC 3.26 L Hgb 10.1 L POC Hgb Hct 28.6 L POC Hct MCV 87.7 MCH 31.0 MCHC 35.3 RDW Std Deviation 41.4 RDW Coeff of Isadora 12.8 Plt Count 146 MPV 10.4 Immature Gran % (Auto) 0.3 Neut % (Auto) 85.6 Lymph % (Auto) 9.2 [place] % (Auto) 4.5 Eos % (Auto) 0.3 Baso % (Auto) 0.1 Immature Gran # (Auto) 0.03 H Neut # (Auto) 9.11 H Lymph # (Auto) 0.98 L [place] # (Auto) 0.48 Eos # (Auto) 0.03 Baso # (Auto) 0.01 PT INR Sample Site POC pH POC pCO2 POC pO2 POC HCO3 POC Base Excess ABG pH (Temp Correct) ABG pCO2 (Temp Corrct POC ABG pO2 at Pt Temp POC ABG O2 Sat Isaac Test VBG pH VBG pCO2 VBG pO2 VBG HCO3 VBG O2 Saturation VBG Base Excess Barometric Pressure O2 Delivery Device POC O2 Rate Minute Ventilation POC FiO2 Tidal Volume PEEP POC Sodium Sodium 138 POC Potassium Potassium 4.3 POC Chloride Chloride 106 Carbon Dioxide 21 POC Total CO2 Anion Gap 11.0 POC Anion Gap POC BUN BUN 28 H Creatinine 1.56 H POC Creatinine Est Cr Clr Drug Dosing 32.7 Est GFR ( Amer) 50.3 Est GFR (Non-Af Amer) 43.4 BUN/Creatinine Ratio 17.9 Glucose 164 H POC Glucose POC Glucose (other) Estimat Average Glucose 148 Hemoglobin A1c 6.8 H POC Lactic Acid Cosme Lactate Calcium 7.5 L POC Ioniz Calcium Molly Phosphorus 3.2 Magnesium 1.8 Total Bilirubin AST ALT Alkaline Phosphatase Total Creatine Kinase Troponin I NT-Pro-B Natriuret Pep Total Protein Albumin Globulin Albumin/Globulin Ratio TSH Urine Color Urine Appearance Urine pH Ur Specific [place] Urine Protein Urine Glucose (UA) Urine Ketones Urine Blood Urine Nitrite Urine Bilirubin Urine Urobilinogen Ur Leukocyte Esterase Urine WBC (Auto) Urine RBC (Auto) U Hyaline Cast (Auto) U Epithel Cells (Auto) Urine Bacteria (Auto) Nasal Screen MRSA (PCR) Salicylates Acetaminophen Ethyl Alcohol mg/dL Blood Type Antibody Screen 01/09/19 01/09/19 01/09/19 04:33 04:54 05:37 WBC RBC Hgb POC Hgb Hct POC Hct MCV MCH MCHC RDW Std Deviation RDW Coeff of Isadora Plt Count MPV Immature Gran % (Auto) Neut % (Auto) Lymph % (Auto) [place] % (Auto) Eos % (Auto) Baso % (Auto) Immature Gran # (Auto) Neut # (Auto) Lymph # (Auto) [place] # (Auto) Eos # (Auto) Baso # (Auto) PT INR Sample Site R Radial POC pH 7.34 L POC pCO2 34 L POC pO2 150 H POC HCO3 19 POC Base Excess -7.0 ABG pH (Temp Correct) 7.349 L ABG pCO2 (Temp Corrct 34 L POC ABG pO2 at Pt Temp 147 POC ABG O2 Sat 99.0 H Isaac Test Pass VBG pH VBG pCO2 VBG pO2 VBG HCO3 VBG O2 Saturation VBG Base Excess Barometric Pressure O2 Delivery Device Ventilator POC O2 Rate 16 Minute Ventilation 6.7 POC FiO2 30 Tidal Volume 450 PEEP 5 POC Sodium Sodium POC Potassium Potassium POC Chloride Chloride Carbon Dioxide POC Total CO2 20 L Anion Gap POC Anion Gap POC BUN BUN Creatinine POC Creatinine Est Cr Clr Drug Dosing Est GFR ( Amer) Est GFR (Non-Af Amer) BUN/Creatinine Ratio Glucose POC Glucose 153 H POC Glucose (other) Estimat Average Glucose Hemoglobin A1c POC Lactic Acid Cosme Lactate 3.7 H* Calcium POC Ioniz Calcium Molly Phosphorus Magnesium Total Bilirubin AST ALT Alkaline Phosphatase Total Creatine Kinase Troponin I NT-Pro-B Natriuret Pep Total Protein Albumin Globulin Albumin/Globulin Ratio TSH Urine Color Urine Appearance Urine pH Ur Specific [place] Urine Protein Urine Glucose (UA) Urine Ketones Urine Blood Urine Nitrite Urine Bilirubin Urine Urobilinogen Ur Leukocyte Esterase Urine WBC (Auto) Urine RBC (Auto) U Hyaline Cast (Auto) U Epithel Cells (Auto) Urine Bacteria (Auto) Nasal Screen MRSA (PCR) Salicylates Acetaminophen Ethyl Alcohol mg/dL Blood Type Antibody Screen 01/09/19 06:08 WBC RBC Hgb POC Hgb Hct POC Hct MCV MCH MCHC RDW Std Deviation RDW Coeff of Isadora Plt Count MPV Immature Gran % (Auto) Neut % (Auto) Lymph % (Auto) [place] % (Auto) Eos % (Auto) Baso % (Auto) Immature Gran # (Auto) Neut # (Auto) Lymph # (Auto) [place] # (Auto) Eos # (Auto) Baso # (Auto) PT INR Sample Site POC pH POC pCO2 POC pO2 POC HCO3 POC Base Excess ABG pH (Temp Correct) ABG pCO2 (Temp Corrct POC ABG pO2 at Pt Temp POC ABG O2 Sat Isaac Test VBG pH VBG pCO2 VBG pO2 VBG HCO3 VBG O2 Saturation VBG Base Excess Barometric Pressure O2 Delivery Device POC O2 Rate Minute Ventilation POC FiO2 Tidal Volume PEEP POC Sodium Sodium POC Potassium Potassium POC Chloride Chloride Carbon Dioxide POC Total CO2 Anion Gap POC Anion Gap POC BUN BUN Creatinine POC Creatinine Est Cr Clr Drug Dosing Est GFR ( Amer) Est GFR (Non-Af Amer) BUN/Creatinine Ratio Glucose POC Glucose 158 H POC Glucose (other) Estimat Average Glucose Hemoglobin A1c POC Lactic Acid Cosme Lactate Calcium POC Ioniz Calcium Molly Phosphorus Magnesium Total Bilirubin AST ALT Alkaline Phosphatase Total Creatine Kinase Troponin I NT-Pro-B Natriuret Pep Total Protein Albumin Globulin Albumin/Globulin Ratio TSH Urine Color Urine Appearance Urine pH Ur Specific [place] Urine Protein Urine Glucose (UA) Urine Ketones Urine Blood Urine Nitrite Urine Bilirubin Urine Urobilinogen Ur Leukocyte Esterase Urine WBC (Auto) Urine RBC (Auto) U Hyaline Cast (Auto) U Epithel Cells (Auto) Urine Bacteria (Auto) Nasal Screen MRSA (PCR) Salicylates Acetaminophen Ethyl Alcohol mg/dL Blood Type Antibody Screen Microbiology 01/08/19 21:27 Sputum,Vent Suction Gram Stain - Final Many WBCs Seen Rare Gram Positive Bacilli Rare Gram Negative Bacilli Rare Gram Negative Cocci Few Gram Positive Cocci Diagnostic Findings Chest x-ray reviewed by the undersigned and formally interpreted by Radiology: FINDINGS: Endotracheal tube overlies the midline, 4.3 cm superior to the bridget. Enteric tube courses below the diaphragm outside the [id number]. Mild subsegmental left basilar opacities are redemonstrated. Calcified plaque of the thoracic aorta. Mild emphysema. No pneumothorax, pleural effusion or overt pulmonary edema. Degenerative changes of the shoulders and spine. IMPRESSION: 1. Endotracheal tube terminates 4.3 cm superior to the bridget. 2. Unchanged left lung base opacities. 3. Emphysema. The above report was generated using voice recognition software. It may contain grammatical, syntax or spelling errors. Electronically signed by: Kev Haro M.D. 01/09/2019 7:04 AM ECG Additional Comments: EKG performed at 0715 reviewed and demonstrated normal sinus rhythm at 74/minute, intraventricular conduction delay, fluctuating baseline, no definite significant ST/T wave abnormalities (? ST elevation inferiorly). (1) Acute respiratory failure Respiratory failure complication: unspecified whether with hypoxia or hypercapnia Qualified Code(s): J96.00 - Acute respiratory failure, unspecified whether with hypoxia or hypercapnia (2) Altered mental status Altered mental status type: unspecified Qualified Code(s): R41.82 - Altered mental status, unspecified
[2019-01-09 09:27] LABS: INR 1.1 (0.9-1.1); Prothrombin Time 11.4 Seconds (9.0-12.0)
[2019-01-09 09:55] LABS: Albumin Level 2.9 gm/dl (3.4-5.0); Bilirubin Direct 0.1 mg/dl (0-0.2); Bilirubin,Total 0.4 mg/dl (0.2-1); Total Protein 5.9 gm/dl (6.4-8.2)
[2019-01-09] MEDS ORDERED: THIAMINE HCL 500 MG in 0.9 % SODIUM CHLORIDE 100 ML IV ONE (11:00)
[2019-01-09] MEDS: INSULIN GLARGINE SOLOSTAR 100 UNITS/ML 3 ML PEN SC SCH ×2 (11:40→21:03)
[2019-01-09] MEDS: MAGNESIUM SULFATE / D5W 1 GM/100 ML BAG IV SCH ×2 (11:55→13:10)
--- NOTE | 2019-01-09 14:00 | Palliative Care Progress Note ---
Date of Service January 09, 2019 Subjective This is a 73 year old patient who was admitted with acute on chronic respiratory failure who was [facility] [place] [facility]. Additional PMH includes: CVA, DM2, HTN, PRETTY, dementia for which he has been residing at a group home for two years. He was intubated and had a trial extubation today. I spoke with Dr. Santamaria who has had a detailed and lengthy conversation with the patients daughter, who is also POA. Per Dr. Santamaria, their wishes and goals [place] ear to be clear. Patients daughter ok with short term and reintubation if necessary. patient being moved out of ICU today. No need for a Palliative Care Consult at this time. Dr. Santamaria will consult us if appears necessary. Palliative Care removing consultation at this time. Thank you kindly. Results & Data Vital Signs (Past 12 Hours) Vital Signs Temp Pulse Pulse Resp BP BP Pulse Ox 01/09/19 13:00 94 H 14 120/40 L 97 01/09/19 12:00 37.2 C 95 H 18 115/40 L 95 01/09/19 11:01 98 H 114/79 97 01/09/19 10:00 90 104/72 100 01/09/19 09:20 88 91/62 L 100 01/09/19 09:00 89 100 01/09/19 08:00 36.5 C 92 H 102/55 L 99 01/09/19 07:31 74 10 L 100 01/09/19 07:00 72 117/55 L 100 01/09/19 06:47 70 16 94/46 L 100 01/09/19 06:00 75 16 79/50 L 100 01/09/19 05:00 75 76 16 84/56 L 100 01/09/19 04:00 36.6 C 80 16 88/55 L 100 01/09/19 03:00 85 16 83/49 L 100 01/09/19 02:00 95 H 16 87/36 L 100 PG Care Time/CCT Total # of Minutes Spent Total Time Spent with Patient: Total time spent is greater than 50% in coordination of care (as documented) at patient's floor/unit and/or counseling patient:
--- NOTE | 2019-01-09 15:08 | Pharmacy Report ---
Pharmacy Glycemic Short Note 2 - Date of Service January 09, 2019 - Glycemic Short BSG Results (Last 24 hours): 01/08/19 01/08/19 01/08/19 16:00 16:07 20:37 Glucose 178 H POC Glucose 212 H POC Glucose (other) 187 H 01/08/19 01/08/19 01/09/19 20:42 23:48 01:52 Glucose POC Glucose 212 H 223 H 184 H POC Glucose (other) 01/09/19 01/09/19 01/09/19 02:50 03:56 04:33 Glucose 164 H POC Glucose 182 H 157 H POC Glucose (other) 01/09/19 01/09/19 01/09/19 04:54 06:08 07:42 Glucose POC Glucose 153 H 158 H 102 H POC Glucose (other) 01/09/19 01/09/19 01/09/19 08:02 09:18 10:06 Glucose POC Glucose 110 H 146 H 148 H POC Glucose (other) 01/09/19 01/09/19 11:37 14:49 Glucose POC Glucose 140 H 102 H POC Glucose (other) OUTPATIENT ANTIDIABETIC REGIMEN: * Lantus 10 units SQ HS * Metformin 500mg PO BID * Glipizide 5mg PO Q AM * A1c = 6.8% ASSESSMENT: * Type 2 diabetic admitted to ICU for acute resp failure, PRETTY, sepsis, pneumonia * Reasonably well controlled with out-pt regimen per A1c (6.8%) * Insulin drip initiated overnight per protocol for BSG > 220 * BSGs now in goal range w/ insulin drip running this AM at 1.3 units/hr * Will transition to SQ regimen now that patient has been extubated and BSGs well controlled. * Lantus 10 units x 1 given yesterday evening. Will begin basal / bolus regimen with initial doses based upon weight and moderate-severe stress level. PLAN FOR INPATIENT GLYCEMIC CONTROL: * Hold outpatient oral diabetes medications (metformin / glipizide) * Basal insulin * Lantus 9 units SQ BID * Bolus insulin * NovoLog per scale ACHS or Q6hrs while NPO * Goal Range: Low 120 mg/dL - High 150 mg/dL * Correction Factor: 30 mg/dL/unit * Nutritional / Prandial insulin per carb ratio of 1 unit per 12 grams CHO consumed PLAN FOR DISCHARGE: * may likely resume home diabetes regimen if no contraindications present at time of discharge.
[2019-01-09] MEDS: D5W NORMOSOL-R 1,000 ML IV SCH (19:48)
[2019-01-09] MEDS: TRAVOPROST Z 0.004% OPH SOLN 2.5 ML BTL OPB SCH (21:02)
[2019-01-09] MEDS: cefTRIAXone SODIUM 1,000 MG in DEXTROSE 5% 50 ML IV SCH (21:32)
[2019-01-10] MEDS ORDERED: PIPERACILL/TAZOBAC CONSULT ACTIVE PRN (00:04)
[2019-01-10] MEDS ORDERED: PIPERACILLIN/TAZOBACTAM 3.375 GM in DEXTROSE 5% 100 ML IV ONE (00:15)
[2019-01-10] MEDS: ALBUT/IPRATROP 3MG/0.5MG NEB 3 ML VIAL INH SCH ×4 (02:22→18:59)
[2019-01-10] MEDS: D5W NORMOSOL-R 1,000 ML IV SCH ×3 (04:05→20:55)
[2019-01-10] MEDS: INSULIN ASPART 100 UNITS/ML 3 ML PEN SC SCH ×3 (05:52→17:13)
[2019-01-10 06:06] LABS: Basophils # (auto) 0.01 K/uL (0-0.2); Basophils % (auto) 0.1 %; Eosinophils # (auto) 0.22 K/uL (0-0.5); Eosinophils % (auto) 2.7 %; Hematocrit (blood only) 29.6 % (42-52); Hemoglobin 10.4 g/dL (14.0-18.0); Immature Granulocytes # (auto) 0.02 K/uL (0.00-0.02); Immature Granulocytes % (auto) 0.2 %; Lymphocytes # (auto) 1.26 K/uL (1.2-3.4); Lymphocytes % (auto) 15.6 %; Mean Corpuscular Hgb Conc 35.1 g/dL (32-36); Mean Corpuscular Volume 88.1 fL (80-100); Mean Platelet Volume 9.6 fL (7.4-10.4); Monocytes # (auto) 0.43 K/uL (0.11-0.59); Monocytes % (auto) 5.3 %; Neutrophils # (auto) 6.13 K/uL (1.4-6.5); Neutrophils % (auto) 76.1 %; Platelet Count 145 K/uL (130-400); RDW Coefficient of Variation 12.8 % (11.5-14.5); Red Blood Count 3.36 M/uL (4.7-6.1); White Blood Count 8.07 K/uL (4.8-10.8)
[2019-01-10] MEDS: HEPARIN SOD 5,000 UNIT/0.5 ML VIAL SQ SCH ×3 (06:16→20:57)
[2019-01-10] MEDS: PIPERACILLIN/TAZOBACTAM 3.375 GM in DEXTROSE 5% 100 ML IV SCH ×3 (06:16→20:59)
--- NOTE | 2019-01-10 06:29 | Hospitalist Progress Note ---
Date of Service January 10, 2019 Subjective Made aware by RN of patient complaints of bilateral visual loss around 6 AM. Patient denies headache. Patient denies eye pain. Intermittent episodes at care home facility prior to admission as per patient's daughter. PPE : Demented No eye discharge, no erythema/conjunctivitis VA : OD no light perception, OS light perception No obvious EMO entrapment (some patient difficulty following instructions for exam) AP intermittent visual loss, OU Rule out recurrent CVA CT head now May benefit from inpatient Ophthalmology evaluation. Will relay to AM provider. Results & Data Vital Signs (Past 12 Hours) Vital Signs Temp Pulse Resp BP Pulse Ox 01/10/19 06:23 83 18 128/74 99 01/10/19 02:22 99 H 18 94 01/09/19 20:03 36.8 C 91 H 22 115/69 98
[2019-01-10 06:41] LABS: BUN Creatinine Ratio 9.4 (10-20); Calcium 8.5 mg/dl (8.5-10.1); Creatinine Clr Calc Pharmacy 46.3 ml/min; Est GFR (African American) 71.3; Est GFR (Non-African American) 61.5; Magnesium 2.2 mg/dl (1.8-2.4); Phosphorus 2.9 mg/dl (2.5-4.9)
--- NOTE | 2019-01-10 07:57 | XRay Report ---
XR chest 1V portable CLINICAL HISTORY: Respiratory failure COMPARISON STUDY: 01/09/2019 FINDINGS: The cardiac and mediastinal contours remain stable. There has been interval removal of the endotracheal tube and nasogastric tubes. There are persistent left basilar airspace opacities.[There are no significant pleural effusions. The patient is mildly hyperinflated. IMPRESSION: 1. Persistent left basilar opacities, pneumonia versus atelectasis 2. Interval removal of the endotracheal tube and nasogastric tubes. Electronically signed by: Michael Ortez M.D. 01/10/2019 7:55 AM
--- NOTE | 2019-01-10 08:08 | CT Scan Report ---
HEAD CT NONCONTRAST CT DOSE: 537.48 mGy.cm HISTORY: vision loss TECHNIQUE: Multiaxial CT images of the head were performed without the use of intravenous contrast. A utomated exposure control was utilized for this study. A dose lowering technique was utilized adheri ng to the principles of ALARA. Comparison: Head CT 01/08/2019. Findings: Moderate mucosal thickening within the ethmoid air cells and sphenoid sinuses. The mastoid air cells are clear. Vascular calcifications are noted at the skull base. The orbits are within azael l limits. The calvarium and skull base are intact. There is no mass, hematoma, midline shift, acute i nfarct. White matter hypodensity is nonspecific but suggestive of microvascular ischemic change. The ventricles and sulci demonstrate mild age-related involutional changes. Impression: No significant change compared to the prior study. No acute intracranial abnormality. Electronically signed by: Harmeet Sanders M.D. 01/10/2019 8:07 AM
[2019-01-10] MEDS: FAMOTIDINE 20 MG in SYRINGE 3 ML IV SCH (09:26)
[2019-01-10] MEDS: INSULIN GLARGINE SOLOSTAR 100 UNITS/ML 3 ML PEN SC SCH ×2 (09:28→20:56)
[2019-01-10] MEDS: DORZOLAMIDE/TIMOLOL 22.3/6.8MG/ML 10 ML BTL OPB SCH ×2 (09:28→20:35)
[2019-01-10] MEDS: PILOCARPINE HCL 2% OP SOLN 15 ML BTL OPB SCH ×4 (09:28→20:35)
[2019-01-10] MEDS: THIAMINE HCL 100 MG in SYRINGE 9 ML IV SCH (12:49)
--- NOTE | 2019-01-10 15:45 | Pharmacy Report ---
Pharmacy Glycemic Short Note 2 - Date of Service January 10, 2019 - Glycemic Short BSG Results (Last 24 hours): 01/09/19 01/09/19 01/09/19 13:16 15:48 16:33 Glucose POC Glucose 99 91 98 01/09/19 01/09/19 01/09/19 18:13 20:31 23:30 Glucose POC Glucose 84 85 141 H 01/10/19 01/10/19 01/10/19 05:49 05:51 12:46 Glucose 200 H POC Glucose 200 H 105 H OUTPATIENT ANTIDIABETIC REGIMEN: * Lantus 10 units SQ HS * Metformin 500mg PO BID * Glipizide 5mg PO Q AM * A1c = 6.8% ASSESSMENT: 01/10 * Patient continues to be NPO, failed swallow eval, D5+Normosol running @125 ml/hr * Fasting this AM was elevated at 200 but could be due to dextrose, continuing weight based stress of 2 lantus dosing with scale * Lunch BSG corrected to 105- will continue current novolog parameters 01/09 * Type 2 diabetic admitted to ICU for acute resp failure, PRETTY, sepsis, pneumonia * Reasonably well controlled with out-pt regimen per A1c (6.8%) * Insulin drip initiated overnight per protocol for BSG > 220 * BSGs now in goal range w/ insulin drip running this AM at 1.3 units/hr * Will transition to SQ regimen now that patient has been extubated and BSGs well controlled. * Lantus 10 units x 1 given yesterday evening. Will begin basal / bolus regimen with initial doses based upon weight and moderate-severe stress level. PLAN FOR INPATIENT GLYCEMIC CONTROL: * Hold outpatient oral diabetes medications (metformin / glipizide) * Basal insulin * Lantus 9 units this AM * Scale for PM: hold if <110, 5 units 110-180, 9 units >180 * Bolus insulin * NovoLog per scale ACHS or Q6hrs while NPO * Goal Range: Low 120 mg/dL - High 150 mg/dL * Correction Factor: 30 mg/dL/unit * Nutritional / Prandial insulin per carb ratio of 1 unit per 12 grams CHO consumed PLAN FOR DISCHARGE: * may likely resume home diabetes regimen if no contraindications present at time of discharge.
[2019-01-10] MEDS: TRAVOPROST Z 0.004% OPH SOLN 2.5 ML BTL OPB SCH (20:35)
--- NOTE | 2019-01-10 22:40 | Hospitalist Progress Note ---
Date of Service January 10, 2019 Assessment & Plan (1) Acute respiratory failure: Acute respiratory failure noted at [facility]. EMS summoned. Intubation attempted in the field, but not successful. Received assisted ventilation en route. Intubated in ED at patient's request. CTA chest negative for pulmonary embolism, but demonstrated bibasilar infiltrates. Respiratory failure probably secondary to pneumonia with underlying COPD. Weaned / extubated 01/09. Maintaining sats on NC. (2) Severe sepsis: Met criteria for severe sepsis in the ED per current CMS criteria. Most likely source pneumonia. Blood cultures obtained. Receiving broad-spectrum antibiotics. Serum lactate elevated and trended. Fluctuating hemodynamics. Had hypotension during the night, but hypotension could be attributed to sedation with propofol. Nasal MRSA screen negative,So MRSA pneumonia very unlikely. Currently receiving piperacillin / tazobactam. (3) Pneumonia: As noted above. Consider possibility of aspiration pneumonia. CHILD CARE ASSOCIATE TEACHER attempted bedside swallowing eval with apparent aspiration. Continue NPO status for now. (4) Altered mental status: Increasing confusion at time of admission. CT head showed chronic small vessel disease, no acute findings. Probable encephalopathy secondary to sepsis and/or respiratory failure. (5) Abnormal EKG: EKG this morning shows fluctuating baseline, ? ST elevation inferiorly. Initial and subsequent troponins negative. (6) PRETTY (acute kidney injury): Serum creatinine at time of admission 1.59 compared to baseline of 0.76 on 03/28/2018. Creatinine this morning = 1.17. Continue IV fluids. Follow. (7) History of CVA (cerebrovascular accident): Daughter reports history of ischemic strokes. CT head without contrast demonstrates small vessel ischemic changes. (8) HTN (hypertension): Blood pressures low at times. Follow and titrate antihypertensive therapy. (9) Diabetes mellitus, type II: History of diabetes mellitus type 2. Hemoglobin A1c 6.8. Hold metformin and glipizide during hospital stay. Received IV insulin per ICU protocol. Blood sugar this morning 200. Pharmacy continues to follow for glycemic management. (10) HLD (hyperlipidemia): Resume atorvastatin when able to take oral medications. (11) BPH (benign prostatic hyperplasia): Prescribed tamsulosin; resume when able to take oral medications. Currently has Palacios catheter-remove when possible. (12) Dementia: History of dementia leading to skilled nursing placement about 2 years ago. Daughter indicates that dementia has been attributed to cerebrovascular disease and/or alcohol use. Monitor for delirium. Avoid anticholinergic agents and other medications with JAVA FRONT END WEB DEVELOPER side effects whenever possible. (13) MRSA (methicillin resistant Staphylococcus aureus) carrier: History of positive nasal MRSA screen 03/26/2018 at this facility. Nasal MRSA screen negative at time of this admission. Contact isolation should be continued until 2 negative MRSA screens confirmed. (14) Macular degeneration: Severe macular degeneration, legally blind. No apparent acute ocular or neuro event. (15) Do not resuscitate status: DNR status confirmed with daughter/POA. However, patient requested intubation in the Emergency Department and daughter confirms that short-term support with mechanical ventilation would be appropriate. (16) DVT prophylaxis: Receiving SQ heparin. SCD applied to left lower extremity. (17) Discharge planning issues: Anticipated need for skilled care after recovery from acute illness. Follow-up with Dr. Gaspar at [facility]. Daughter visiting and given update. Subjective Recheck for multiple problems. Patient seen in their room around 16:10. Extubated yesterday and maintaining O2 saturations on nasal cannula. Confused. Upset early this morning that he could not see. Emergent CT obtained without acute findings. Review of Systems Review of Systems: Unobtainable due to cognitive status Physical Exam Constitutional: no acute distress Neck: trachea midline, no thyromegaly Respiratory: no respiratory distress Auscultation: + rhonchi (few, scattered) and + wheezes Cardiovascular: Rate/Rhythm: regular rate (distant heart sounds) and regular rhythm Heart Sounds: no gallop, no murmur and no cardiac rub Vessels: no JVD Extremities: no calf tenderness and no edema Gastrointestinal (Abdomen): Inspection/Auscultation: + abnormal bowel sounds (quiet) Percussion/Palpation: abdomen soft; abdomen nontender Musculoskeletal: Extremities: + amputation noted (right BKA); no cyanosis Skin: no rashes, warm and dry Psychiatric: Orientation: alert; + not oriented x 3 Genitourinary: + bladder abnormality (Palacios catheter) Results & Data Vital Signs (Past 12 Hours) Vital Signs Temp Pulse Resp BP Pulse Ox 01/10/19 19:11 37.0 C 91 H 24 162/79 H 96 01/10/19 19:00 88 18 97 01/10/19 16:11 36.4 C L 71 18 129/76 100 01/10/19 13:54 86 20 96 01/10/19 11:49 36.7 C 80 18 132/60 Laboratory Results Laboratory Results - last 24 hr 01/09/19 01/10/19 01/10/19 23:30 05:49 05:51 WBC 8.07 RBC 3.36 L Hgb 10.4 L Hct 29.6 L MCV 88.1 MCH 31.0 MCHC 35.1 RDW Std Deviation 41.0 RDW Coeff of [place]as[place]ora 12.8 Plt Count 145 MPV 9.6 Immature Gran % (Auto) 0.2 Neut % (Auto) 76.1 Lymph % (Auto) 15.6 Hill % (Auto) 5.3 Eos % (Auto) 2.7 Baso % (Auto) 0.1 Immature Gran # (Auto) 0.02 Neut # (Auto) 6.13 Lymph # (Auto) 1.26 Hill # (Auto) 0.43 Eos # (Auto) 0.22 Baso # (Auto) 0.01 Sodium Potassium Chloride Carbon Dioxide Anion Gap BUN Creatinine Est Cr Clr Drug Dosing Est GFR ( Amer) Est GFR (Non-Af Amer) BUN/Creatinine Ratio Glucose POC Glucose 141 H 200 H Lactate Calcium Phosphorus Magnesium Procalcitonin 01/10/19 01/10/19 01/10/19 05:51 05:51 05:55 WBC RBC Hgb Hct MCV MCH MCHC RDW Std Deviation RDW Coeff of Isadora Plt Count MPV Immature Gran % (Auto) Neut % (Auto) Lymph % (Auto) Hill % (Auto) Eos % (Auto) Baso % (Auto) Immature Gran # (Auto) Neut # (Auto) Lymph # (Auto) Hill # (Auto) Eos # (Auto) Baso # (Auto) Sodium 142 Potassium 4.0 Chloride 108 H Carbon Dioxide 27 Anion Gap 7.0 BUN 11 D Creatinine 1.17 D Est Cr Clr Drug Dosing 46.3 Est GFR ( Amer) 71.3 Est GFR (Non-Af Amer) 61.5 BUN/Creatinine Ratio 9.4 L Glucose 200 H POC Glucose Lactate 1.8 Calcium 8.5 Phosphorus 2.9 Magnesium 2.2 Procalcitonin 0.10 01/10/19 01/10/19 01/10/19 12:46 16:18 19:10 WBC RBC Hgb Hct MCV MCH MCHC RDW Std Deviation RDW Coeff of Isadora Plt Count MPV Immature Gran % (Auto) Neut % (Auto) Lymph % (Auto) Hill % (Auto) Eos % (Auto) Baso % (Auto) Immature Gran # (Auto) Neut # (Auto) Lymph # (Auto) Hill # (Auto) Eos # (Auto) Baso # (Auto) Sodium Potassium Chloride Carbon Dioxide Anion Gap BUN Creatinine Est Cr Clr Drug Dosing Est GFR ( Amer) Est GFR (Non-Af Amer) BUN/Creatinine Ratio Glucose POC Glucose 105 H 87 140 H Lactate Calcium Phosphorus Magnesium Procalcitonin Diagnostic Findings PORTABLE CHEST X-RAY IMPRESSION: 1. Persistent left basilar opacities, pneumonia versus atelectasis 2. Interval removal of the endotracheal tube and nasogastric tubes. Electronically signed by: Michael Ortez M.D. CT HEAD Findings: Moderate mucosal thickening within the ethmoid air cells and sphenoid sinuses. The mastoid air cells are clear. Vascular calcifications are noted at the skull base. The orbits are within normal limits. The calvarium and skull base are int act. There is no mass, hematoma, midline shift, acute infarct. White matter hypodensity is nonspecific but suggestive of microvascular ischemic change. The ventricles and sulci demonstrate mild age-related involutional changes. Impression: No significant change compared to the prior study. No acute intracranial abnormality. Electronically signed by: Harmeet Sanders M.D. 01/10/2019 8:07 AM (1) Acute respiratory failure Respiratory failure complication: unspecified whether with hypoxia or hypercapnia Qualified Code(s): J96.00 - Acute respiratory failure, unspecified whether with hypoxia or hypercapnia (2) Altered mental status Altered mental status type: unspecified Qualified Code(s): R41.82 - Altered mental status, unspecified
[2019-01-11] MEDS: INSULIN ASPART 100 UNITS/ML 3 ML PEN SC SCH ×5 (00:33→23:52)
[2019-01-11] MEDS: ALBUT/IPRATROP 3MG/0.5MG NEB 3 ML VIAL INH SCH ×4 (02:22→18:49)
[2019-01-11] MEDS: D5W NORMOSOL-R 1,000 ML IV SCH ×3 (04:50→21:02)
[2019-01-11] MEDS: PIPERACILLIN/TAZOBACTAM 3.375 GM in DEXTROSE 5% 100 ML IV SCH ×3 (06:27→22:15)
[2019-01-11] MEDS: HEPARIN SOD 5,000 UNIT/0.5 ML VIAL SQ SCH ×2 (06:28→14:53)
[2019-01-11 09:27] LABS: Basophils # (auto) 0.02 K/uL (0-0.2); Basophils % (auto) 0.3 %; Eosinophils % (auto) 3.2 %; Hematocrit (blood only) 30.8 % (42-52); Hemoglobin 10.8 g/dL (14.0-18.0); Immature Granulocytes # (auto) 0.01 K/uL (0.00-0.02); Immature Granulocytes % (auto) 0.2 %; Lymphocytes # (auto) 1.47 K/uL (1.2-3.4); Lymphocytes % (auto) 23.5 %; Mean Corpuscular Hgb Conc 35.1 g/dL (32-36); Mean Corpuscular Volume 86.3 fL (80-100); Mean Platelet Volume 9.7 fL (7.4-10.4); Monocytes # (auto) 0.41 K/uL (0.11-0.59); Monocytes % (auto) 6.5 %; Neutrophils # (auto) 4.15 K/uL (1.4-6.5); Neutrophils % (auto) 66.3 %; Platelet Count 164 K/uL (130-400); RDW Coefficient of Variation 12.4 % (11.5-14.5); Red Blood Count 3.57 M/uL (4.7-6.1); White Blood Count 6.26 K/uL (4.8-10.8)
[2019-01-11] MEDS: PILOCARPINE HCL 2% OP SOLN 15 ML BTL OPB SCH ×4 (09:51→20:23)
[2019-01-11] MEDS: DORZOLAMIDE/TIMOLOL 22.3/6.8MG/ML 10 ML BTL OPB SCH ×2 (09:51→20:21)
[2019-01-11] MEDS: THIAMINE HCL 100 MG in SYRINGE 9 ML IV SCH (09:53)
[2019-01-11] MEDS: FAMOTIDINE 20 MG in SYRINGE 3 ML IV SCH (09:54)
[2019-01-11 10:20] LABS: BUN Creatinine Ratio 4.1 (10-20); Calcium 8.3 mg/dl (8.5-10.1); Creatinine Clr Calc Pharmacy 53.3 ml/min; Est GFR (African American) 85.1; Est GFR (Non-African American) 73.4; Magnesium 1.8 mg/dl (1.8-2.4); Phosphorus 2.6 mg/dl (2.5-4.9); Potassium 3.8 mmol/L (3.5-5.1)
[2019-01-11] MEDS: INSULIN GLARGINE SOLOSTAR 100 UNITS/ML 3 ML PEN SC SCH ×2 (10:33→21:03)
--- NOTE | 2019-01-11 19:42 | Hospitalist Progress Note ---
Date of Service January 11, 2019 Assessment & Plan (1) Acute respiratory failure: Acute respiratory failure noted at [facility]. EMS summoned. Intubation attempted in the field, but not successful. Received assisted ventilation en route. Intubated in ED at patient's request. CTA chest negative for pulmonary embolism, but demonstrated bibasilar infiltrates. Respiratory failure probably secondary to pneumonia with underlying COPD. Weaned / extubated 01/09. Maintaining sats on NC. (2) Severe sepsis: Met criteria for severe sepsis in the ED per current CMS criteria. Met criteria for severe sepsis due to eventual lactate > 4. Most likely source pneumonia. Blood cultures obtained. Receiving broad-spectrum antibiotics. Serum lactate elevated and trended. Had some low BP's, but hypotension could be attributed to sedation with propofol. Nasal MRSA screen negative, so MRSA pneumonia very unlikely. Currently receiving piperacillin / tazobactam. (3) Pneumonia: Receiving IV piperacillin / tazo with improvement. Consider possibility of aspiration pneumonia. 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 Continue NPO status for now. (4) Altered mental status: Increasing confusion at time of admission. CT head showed chronic small vessel disease, no acute findings. Probable encephalopathy secondary to sepsis and/or respiratory failure. (5) Abnormal EKG: EKG 01/09 showed fluctuating baseline, ? ST elevation inferiorly. Initial and subsequent troponins negative. (6) PRETTY (acute kidney injury): Serum creatinine at time of admission 1.59 compared to baseline of 0.76 on 03/28/2018. Creatinine this morning = 1.01. Continue IV fluids. Follow. (7) History of CVA (cerebrovascular accident): Daughter reports history of ischemic strokes. CT head without contrast demonstrates small vessel ischemic changes. (8) HTN (hypertension): Blood pressures low at times. Follow and titrate antihypertensive therapy. (9) Diabetes mellitus, type II: History of diabetes mellitus type 2. Hemoglobin A1c 6.8. Hold metformin and glipizide during hospital stay. Received IV insulin per ICU protocol. Blood sugar this morning 190. Pharmacy continues to follow for glycemic management. (10) HLD (hyperlipidemia): Resume atorvastatin when able to take oral medications. (11) BPH (benign prostatic hyperplasia): Prescribed tamsulosin; resume when able to take oral medications. Currently has Palacios catheter-remove when possible. (12) Dementia: History of dementia leading to group home placement about 2 years ago. Daughter indicates that dementia has been attributed to cerebrovascular disease and/or alcohol use. Monitor for delirium. Avoid anticholinergic agents and other medications with JOINER APPRENTICE side effects whenever possible. (13) MRSA (methicillin resistant Staphylococcus aureus) carrier: History of positive nasal MRSA screen 03/26/2018 at this facility. Nasal MRSA screen negative at time of this admission. Contact isolation should be continued until 2 negative MRSA screens confirmed. (14) Macular degeneration: Severe macular degeneration, legally blind. No apparent acute ocular or neuro event. (15) Do not resuscitate status: DNR status confirmed with daughter/POA. However, patient requested intubation in the Emergency Department and daughter confirms that short-term support with mechanical ventilation would be appropriate. (16) DVT prophylaxis: Receiving SQ heparin. SCD applied to left lower extremity. (17) Discharge planning issues: Anticipated need for skilled care after recovery from acute illness. Follow-up with Dr. Gaspar at [facility]. Daughter given update by phone this morning. Subjective Recheck for multiple problems. Patient seen in their room around 13:40. More alert. Ongoing confusion. Denies CP, SOB, or other problems. Review of Systems Review of Systems: Unobtainable due to cognitive status Physical Exam Constitutional: no acute distress Neck: trachea midline, no thyromegaly Respiratory: no respiratory distress Auscultation: + rhonchi (few, scattered) and + wheezes Cardiovascular: Rate/Rhythm: regular rate (distant heart sounds) and regular rhythm Heart Sounds: no gallop, no murmur and no cardiac rub Vessels: no JVD Extremities: no calf tenderness and no edema Gastrointestinal (Abdomen): Inspection/Auscultation: normal bowel sounds (quiet) Percussion/Palpation: abdomen soft; abdomen nontender Musculoskeletal: Extremities: + amputation noted (right BKA); no cyanosis Skin: no rashes, warm and dry Neurologic: + not awake (sedated) Psychiatric: Orientation: alert; + not oriented x 3 Genitourinary: + bladder abnormality (Palacios catheter) Results & Data Vital Signs (Past 12 Hours) Vital Signs Temp Pulse Resp BP Pulse Ox 01/11/19 19:25 36.9 C 79 18 151/77 H 100 01/11/19 15:41 37.2 C 75 16 145/76 H 99 08/02/19 13:57 80 18 99 01/11/19 11:52 36.5 C 76 22 132/52 L 99 01/11/19 07:51 36.9 C 84 18 130/80 98 Laboratory Results Laboratory Results - last 24 hr 01/11/19 01/11/19 01/11/19 00:26 09:13 09:13 WBC 6.26 RBC 3.57 L Hgb 10.8 L Hct 30.8 L MCV 86.3 MCH 30.3 MCHC 35.1 RDW Std Deviation 39.0 RDW Coeff of Isadora 12.4 Plt Count 164 MPV 9.7 Immature Gran % (Auto) 0.2 Neut % (Auto) 66.3 Lymph % (Auto) 23.5 [place] % (Auto) 6.5 Eos % (Auto) 3.2 Baso % (Auto) 0.3 Immature Gran # (Auto) 0.01 Neut # (Auto) 4.15 Lymph # (Auto) 1.47 Blaine # (Auto) 0.41 Eos # (Auto) 0.20 Baso # (Auto) 0.02 Sodium 138 Potassium 3.8 Chloride 105 Carbon Dioxide 28 Anion Gap 5.0 BUN 4 L D Creatinine 1.01 Est Cr Clr Drug Dosing 53.3 Est GFR ( Amer) 85.1 Est GFR (Non-Af Amer) 73.4 BUN/Creatinine Ratio 4.1 L Glucose 190 H POC Glucose 150 H Calcium 8.3 L Phosphorus 2.6 Magnesium 1.8 01/11/19 01/11/19 01/11/19 11:57 17:35 18:17 WBC RBC Hgb Hct MCV MCH MCHC RDW Std Deviation RDW Coeff of Isadora Plt Count MPV Immature Gran % (Auto) Neut % (Auto) Lymph % (Auto) Blaine % (Auto) Eos % (Auto) Baso % (Auto) Immature Gran # (Auto) Neut # (Auto) Lymph # (Auto) Blaine # (Auto) Eos # (Auto) Baso # (Auto) Sodium Potassium Chloride Carbon Dioxide Anion Gap BUN Creatinine Est Cr Clr Drug Dosing Est GFR ( Amer) Est GFR (Non-Af Amer) BUN/Creatinine Ratio Glucose POC Glucose 179 H 149 H 142 H Calcium Phosphorus Magnesium (1) Acute respiratory failure Respiratory failure complication: unspecified whether with hypoxia or hypercapnia Qualified Code(s): J96.00 - Acute respiratory failure, unspecified whether with hypoxia or hypercapnia (2) Altered mental status Altered mental status type: unspecified Qualified Code(s): R41.82 - Altered mental status, unspecified
[2019-01-11] MEDS: TRAVOPROST Z 0.004% OPH SOLN 2.5 ML BTL OPB SCH (20:23)
[2019-01-12] MEDS: ALBUT/IPRATROP 3MG/0.5MG NEB 3 ML VIAL INH SCH ×3 (01:59→15:18)
[2019-01-12] MEDS: D5W NORMOSOL-R 1,000 ML IV SCH ×2 (05:10→11:16)
[2019-01-12] MEDS: INSULIN ASPART 100 UNITS/ML 3 ML PEN SC SCH ×4 (06:19→21:50)
[2019-01-12] MEDS: PIPERACILLIN/TAZOBACTAM 3.375 GM in DEXTROSE 5% 100 ML IV SCH ×3 (06:24→21:45)
[2019-01-12 07:47] LABS: BUN Creatinine Ratio 3.5 (10-20); Calcium 8.4 mg/dl (8.5-10.1); Creatinine Clr Calc Pharmacy 46.8 ml/min; Est GFR (African American) 74.3; Est GFR (Non-African American) 64.1; Potassium 3.4 mmol/L (3.5-5.1)
[2019-01-12] MEDS: PILOCARPINE HCL 2% OP SOLN 15 ML BTL OPB SCH ×4 (07:51→21:41)
[2019-01-12] MEDS: DORZOLAMIDE/TIMOLOL 22.3/6.8MG/ML 10 ML BTL OPB SCH ×2 (07:51→21:41)
[2019-01-12] MEDS: INSULIN GLARGINE SOLOSTAR 100 UNITS/ML 3 ML PEN SC SCH ×2 (07:53→21:51)
[2019-01-12] MEDS: FAMOTIDINE 20 MG in SYRINGE 3 ML IV SCH (07:58)
[2019-01-12] MEDS ORDERED: INSULIN GLARGINE SOLOSTAR 100 UNITS/ML 3 ML PEN SC SCH (09:00)
[2019-01-12] MEDS: THIAMINE HCL 100 MG in SYRINGE 9 ML IV SCH (11:15)
[2019-01-12] MEDS ORDERED: Nursing to Pharmacy Communication ONE (11:47)
--- NOTE | 2019-01-12 14:28 | Pharmacy Report ---
Glycemic Control Progress Note - Date of Service January 12, 2019 - Scope Glycemic Pharmacist consulted for glycemic control to write orders per [facility] inpatient glycemic control protocol. - Objective Accuchecks BSG(last 24 hours):: 01/11/19 01/11/19 01/11/19 17:35 18:17 21:05 Glucose POC Glucose 149 H 142 H 143 H 01/11/19 01/12/19 01/12/19 23:51 05:39 06:05 Glucose Cancelled POC Glucose 154 H 155 H 01/12/19 01/12/19 07:21 11:18 Glucose 178 H POC Glucose 210 H HbA1c:: Hemoglobin A1c 6.8 % (4.5-5.6) H 01/09/19 04:33 - Recent Pertinent Medications The patient is currently receiving: * Basal insulin: Lantus 0-9 units every 12 hours * Correctional Insulin: Novolog Correction per scale ACHS Goal Range: Low 120 mg/dL - High 150 mg/dL Correction Factor: 30 mg/dL/unit * Prandial insulin: Per carb ratio of 1 unit per 12 grams CHO consumed - Outpatient Anti-Diabetic Meds Lantus 10 units HS glipizide 5 mg in the morning metformin 500 mg BID - Assessment & Plan ASSESSMENT: * See progress note from 01/09/19 for more background info, in short: * Pt receiving SQ basal bolus insulin regimen for hyperglycemia secondary to baseline DM (outpatient regimen on hold). Currently being treated with Zosyn * Patient is currently receiving an average of 16 units of insulin per day * 14 units of basal insulin * 2 units of prandial/correctional insulin * BSGs ranging 142 - 179 mg/dl over the past 24hrs * Changes needed to insulin regimen: * AM Fasting BSG = 155 mg/dl. This is in goal range for patient based on inpatient targets and co-morbidities. It appears the patient requires around 16 units of basal per day. This may increase as oral intake increases. Restructure scale so that patient can receive between 14 and 18 units/day. * Post-prandial BSGs are in range therefore no changes needed to CF/CR. * Total daily dose TBD as diet increases. PLAN FOR INPATIENT GLYCEMIC CONTROL: * STARTING Lantus 9 units SQ BID (7 units if blood sugar under 160 mg/dL) * Continuing correction factor of 30 mg/dl/unit * Continuing carb ratio to 1 unit per 12 grams CHO consumed * Continuing goal range of Low 120 mg/dL - High 150 mg/dL RECOMMENDATIONS FOR DISCHARGE: * To be determined based upon patient's requirements inhouse as well as disposition. * Please note that the plan above was derived based on current level of insulin resistance and hospital stress. These recommendations are appropriate for inpatient admission only. Plan of care upon discharge will need to be reassessed to avoid potential outpatient hypo/hyperglycemia. Thank you.
--- NOTE | 2019-01-12 15:39 | Hospitalist Progress Note ---
Date of Service January 12, 2019 Assessment & Plan (1) Acute respiratory failure: Acute respiratory failure noted at [facility]. EMS summoned. Intubation attempted in the field, but not successful. Received assisted ventilation en route. Intubated in ED at patient's request. CTA chest negative for pulmonary embolism, but demonstrated bibasilar infiltrates. Respiratory failure probably secondary to pneumonia with underlying COPD. Weaned / extubated 01/09. Maintaining sats on NC. (2) Severe sepsis: Met criteria for severe sepsis in the ED per current CMS criteria. Met criteria for severe sepsis due to eventual lactate > 4. Most likely source pneumonia. Blood cultures obtained. Receiving broad-spectrum antibiotics. Serum lactate elevated and trended. Had some low BP's, but hypotension could be attributed to sedation with propofol. Nasal MRSA screen negative, so MRSA pneumonia very unlikely. Currently receiving piperacillin / tazobactam. (3) Pneumonia: Receiving IV piperacillin / tazo with improvement. Consider possibility of aspiration pneumonia. CLIENT EXPERIENCE MANAGER attempted bedside swallowing eval 01/10 with apparent aspiration. More alert. Did well today with bedside swallowing eval. Resume diet with caution. (4) Altered mental status: Increasing confusion at time of admission. CT head showed chronic small vessel disease, no acute findings. Probable encephalopathy secondary to sepsis and/or respiratory failure. (5) Abnormal EKG: EKG 01/09 showed fluctuating baseline, ? ST elevation inferiorly. Initial and subsequent troponins negative. (6) PRETTY (acute kidney injury): Serum creatinine at time of admission 1.59 compared to baseline of 0.76 on 03/28/2018. Received IV fluids. Creatinine this morning = 1.13. Follow. (7) History of CVA (cerebrovascular accident): Daughter reports history of ischemic strokes. CT head without contrast demonstrates small vessel ischemic changes. (8) HTN (hypertension): Blood pressures low at times, probably from sedation. BP this morning 142/68. Follow and titrate antihypertensive therapy. (9) Diabetes mellitus, type II: History of diabetes mellitus type 2. Hemoglobin A1c 6.8. Hold metformin and glipizide during hospital stay. Received IV insulin per ICU protocol. Pharmacy consulted for glycemic management. Blood sugar this morning 155. (10) HLD (hyperlipidemia): Resume atorvastatin when able to take oral medications. (11) BPH (benign prostatic hyperplasia): Resume tamsulosin. (12) Dementia: History of dementia leading to care home placement about 2 years ago. Daughter indicates that dementia has been attributed to cerebrovascular disease and/or alcohol use. Monitor for delirium. Avoid anticholinergic agents and other medications with CHEMICAL UNIT OPERATOR side effects whenever possible. (13) MRSA (methicillin resistant Staphylococcus aureus) carrier: History of positive nasal MRSA screen 03/26/2018 at this facility. Nasal MRSA screen negative at time of this admission. Contact isolation should be continued until 2 negative MRSA screens confirmed. (14) Macular degeneration: Severe macular degeneration, legally blind. No apparent acute ocular or neuro event. (15) Hematuria: Gross hematuria noted yesterday. Palacios removed. Holding SQ heparin. Voiding without difficulty. (16) Do not resuscitate status: DNR status confirmed with daughter/POA. However, patient requested intubation in the Emergency Department and daughter confirms that short-term support with mechanical ventilation would be appropriate. (17) DVT prophylaxis: Receiving SQ heparin. SCD applied to left lower extremity. (18) Discharge planning issues: Anticipated need for skilled care after recovery from acute illness. Follow-up with Dr. Gaspar at [facility]. Daughter Janet given update by phone this morning. Subjective Recheck for multiple problems. Patient seen in their room around 09:40. More alert. Ongoing confusion, but realizes that he is in a hospital. Denies CP, SOB, or other problems. Noted to have gross hematuria yesterday. Palacios removed. Seen by CLIENT EXPERIENCE MANAGER for follow-up at and did well with bedside swallowing eval. Physical Exam Constitutional: no acute distress Neck: trachea midline, no thyromegaly Respiratory: no respiratory distress Auscultation: + rhonchi (few, scattered) and + wheezes Cardiovascular: Rate/Rhythm: regular rate (distant heart sounds) and regular rhythm Heart Sounds: no gallop, no murmur and no cardiac rub Vessels: no JVD Extremities: no calf tenderness and no edema Gastrointestinal (Abdomen): Inspection/Auscultation: normal bowel sounds Percussion/Palpation: abdomen soft; abdomen nontender Musculoskeletal: Extremities: + amputation noted (right BKA); no cyanosis Skin: no rashes, warm and dry Psychiatric: Orientation: alert and oriented to person; + not oriented x 3, + not oriented to place (knows that he is in a hospital, but doesn't know which one) and + not oriented to time Results & Data Vital Signs (Past 12 Hours) Vital Signs Temp Pulse Pulse Resp BP Pulse Ox 01/12/19 11:39 36.6 C 76 18 143/71 H 97 01/12/19 07:31 36.7 C 79 16 142/68 H 99 01/12/19 04:31 36.4 C L 79 16 146/76 H 99 Laboratory Results Laboratory Results - last 24 hr 01/11/19 01/11/19 01/11/19 17:35 18:17 21:05 Sodium Potassium Chloride Carbon Dioxide Anion Gap BUN Creatinine Est Cr Clr Drug Dosing Est GFR ( Amer) Est GFR (Non-Af Amer) BUN/Creatinine Ratio Glucose POC Glucose 149 H 142 H 143 H Calcium 01/11/19 01/12/19 01/12/19 23:51 05:39 06:05 Sodium Cancelled Potassium Cancelled Chloride Cancelled Carbon Dioxide Cancelled Anion Gap Cancelled BUN Cancelled Creatinine Cancelled Est Cr Clr Drug Dosing Cancelled Est GFR ( Amer) Cancelled Est GFR (Non-Af Amer) Cancelled BUN/Creatinine Ratio Cancelled Glucose Cancelled POC Glucose 154 H 155 H Calcium Cancelled 01/12/19 01/12/19 07:21 11:18 Sodium 141 Potassium 3.4 L Chloride 107 Carbon Dioxide 29 Anion Gap 5.0 BUN 4 L Creatinine 1.13 Est Cr Clr Drug Dosing 46.8 Est GFR ( Amer) 74.3 Est GFR (Non-Af Amer) 64.1 BUN/Creatinine Ratio 3.5 L Glucose 178 H POC Glucose 210 H Calcium 8.4 L (1) Acute respiratory failure Respiratory failure complication: unspecified whether with hypoxia or hypercapnia Qualified Code(s): J96.00 - Acute respiratory failure, unspecified whether with hypoxia or hypercapnia (2) Altered mental status Altered mental status type: unspecified Qualified Code(s): R41.82 - Altered mental status, unspecified
[2019-01-12] MEDS ORDERED: ACETAMINOPHEN 325 MG TAB PO PRN (17:24)
[2019-01-12] MEDS: CITALOPRAM 20 MG TAB PO SCH (18:32)
[2019-01-12] MEDS: TAMSULOSIN HCL 0.4 MG CAP PO SCH (21:31)
[2019-01-12] MEDS: levETIRAcetam 250 MG TAB PO SCH (21:31)
[2019-01-12] MEDS: ATORVASTATIN 40 MG TAB PO SCH (21:32)
[2019-01-12] MEDS: ARTIFICIAL TEARS OPB SCH (21:41)
[2019-01-12] MEDS: TRAVOPROST Z 0.004% OPH SOLN 2.5 ML BTL OPB SCH (21:42)
[2019-01-13] MEDS: PIPERACILLIN/TAZOBACTAM 3.375 GM in DEXTROSE 5% 100 ML IV SCH ×3 (05:46→22:10)
[2019-01-13] MEDS: FOLIC ACID 1 MG TAB PO SCH (08:46)
[2019-01-13] MEDS: ARTIFICIAL TEARS OPB SCH ×3 (08:47→20:59)
[2019-01-13] MEDS: DORZOLAMIDE/TIMOLOL 22.3/6.8MG/ML 10 ML BTL OPB SCH ×2 (08:48→21:00)
[2019-01-13] MEDS: levETIRAcetam 250 MG TAB PO SCH ×2 (08:49→20:48)
[2019-01-13] MEDS: INSULIN GLARGINE SOLOSTAR 100 UNITS/ML 3 ML PEN SC SCH ×2 (08:50→21:02)
[2019-01-13] MEDS: AMLODIPINE BESYLATE 5 MG TAB PO SCH (08:51)
[2019-01-13] MEDS: PILOCARPINE HCL 2% OP SOLN 15 ML BTL OPB SCH ×4 (08:51→20:46)
[2019-01-13] MEDS: THIAMINE HCL 100 MG TAB PO SCH (08:51)
[2019-01-13] MEDS: LISINOPRIL 5 MG TAB PO SCH (08:52)
[2019-01-13] MEDS: INSULIN ASPART 100 UNITS/ML 3 ML PEN SC SCH ×4 (08:55→21:01)
--- NOTE | 2019-01-13 18:15 | Hospitalist Progress Note ---
Date of Service January 13, 2019 Assessment & Plan (1) Acute respiratory failure: Acute respiratory failure noted at [facility]. EMS summoned. Intubation attempted in the field, but not successful. Received assisted ventilation en route. Intubated in ED at patient's request. CTA chest negative for pulmonary embolism, but demonstrated bibasilar infiltrates. Respiratory failure probably secondary to pneumonia with underlying COPD. Weaned / extubated 01/09. Maintaining sats on NC. (2) Severe sepsis: Met criteria for severe sepsis in the ED per current CMS criteria. Met criteria for severe sepsis due to eventual lactate > 4. Most likely source pneumonia. Blood cultures obtained. Receiving broad-spectrum antibiotics. Serum lactate elevated and trended. Had some low BP's, but hypotension could be attributed to sedation with propofol. Nasal MRSA screen negative, so MRSA pneumonia very unlikely. Currently receiving piperacillin / tazobactam. Transition to oral therapy with amoxicillin / clavulanic acid to complete course of therapy. (3) Pneumonia: Receiving IV piperacillin / tazo with improvement. Consider possibility of aspiration pneumonia. CENTER MANAGER attempted bedside swallowing eval 01/10 with apparent aspiration. More alert. Did well with bedside swallowing eval on 01/12. Resumed diet. Continue aspiration precautions. (4) Altered mental status: Increasing confusion at time of admission. CT head showed chronic small vessel disease, no acute findings. Probable encephalopathy secondary to sepsis and/or respiratory failure. Improved. (5) Abnormal EKG: EKG 01/09 showed fluctuating baseline, ? ST elevation inferiorly. Initial and subsequent troponins negative. (6) PRETTY (acute kidney injury): Serum creatinine at time of admission 1.59 compared to baseline of 0.76 on 03/28/2018. Received IV fluids. Creatinine 01/12 = 1.13. Follow. (7) History of CVA (cerebrovascular accident): Daughter reports history of ischemic strokes. CT head without contrast demonstrates small vessel ischemic changes. (8) HTN (hypertension): Blood pressures low at times, probably from sedation. BP this morning 142/68. Follow and titrate antihypertensive therapy. (9) Diabetes mellitus, type II: History of diabetes mellitus type 2. Hemoglobin A1c 6.8. Hold metformin and glipizide during hospital stay. Received IV insulin per ICU protocol. Pharmacy consulted for glycemic management. Blood sugar this morning 97. (10) HLD (hyperlipidemia): Resume atorvastatin when able to take oral medications. (11) BPH (benign prostatic hyperplasia): Resume tamsulosin. (12) Dementia: History of dementia leading to assisted placement about 2 years ago. Daughter indicates that dementia has been attributed to cerebrovascular disease and/or alcohol use. Monitor for delirium. Avoid anticholinergic agents and other medications with PACKAGE CHECKER side effects whenever possible. (13) MRSA (methicillin resistant Staphylococcus aureus) carrier: History of positive nasal MRSA screen 03/26/2018 at this facility. Nasal MRSA screen negative at time of this admission. Contact isolation should be continued until 2 negative MRSA screens confirmed. (14) Macular degeneration: Severe macular degeneration, legally blind. No apparent acute ocular or neuro event. (15) Hematuria: Gross hematuria noted yesterday. Palacios removed. Holding SQ heparin. Voiding without difficulty. (16) Do not resuscitate status: DNR status confirmed with daughter/POA. However, patient requested intubation in the Emergency Department and daughter confirms that short-term support with mechanical ventilation would be appropriate. (17) DVT prophylaxis: Received SQ heparin - stopped due to hematuria. SCD applied to left lower extremity. (18) Discharge planning issues: Anticipated need for skilled care after recovery from acute illness. Follow-up with Dr. Gaspar at [facility]. Daughter Janet given update by phone this evening. Subjective Recheck for multiple problems. Patient seen in their room around 16:20. Doing well. Pleasantly confused. Much more alert and interactive. Offers no complaints. Rare cough; no SOB; no CP. Review of Systems Review of Systems: Unobtainable due to cognitive status Physical Exam Constitutional: no acute distress ENMT: external ear and nose normal, oropharynx normal (oral ET tube, oral G- tube) Neck: trachea midline, no thyromegaly Respiratory: no respiratory distress Auscultation: lungs clear to aus cultation bilaterally and + rhonchi (few) Cardiovascular: Rate/Rhythm: regular rate (distant heart sounds) and regular rhythm Heart Sounds: no gallop, no murmur and no cardiac rub Vessels: no JVD Extremities: no calf tenderness and no edema Gastrointestinal (Abdomen): Inspection/Auscultation: normal bowel sounds Percussion/Palpation: abdomen soft; abdomen nontender Musculoskeletal: Extremities: + amputation noted (right BKA); no cyanosis Skin: no rashes, warm and dry Neurologic: awake Psychiatric: Orientation: alert and oriented to person; + not oriented x 3, + not oriented to place (knows that he is in a hospital, but doesn't know which one) and + not oriented to time Results & Data Vital Signs (Past 12 Hours) Vital Signs Temp Pulse Resp BP Pulse Ox 01/13/19 16:10 36.7 C 89 20 137/80 97 01/13/19 07:36 37.2 C 82 16 141/86 H 96 (1) Acute respiratory failure Respiratory failure complication: unspecified whether with hypoxia or hypercapnia Qualified Code(s): J96.00 - Acute respiratory failure, unspecified whether with hypoxia or hypercapnia (2) Altered mental status Altered mental status type: unspecified Qualified Code(s): R41.82 - Altered mental status, unspecified
[2019-01-13] MEDS: CITALOPRAM 20 MG TAB PO SCH (18:35)
[2019-01-13] MEDS: ATORVASTATIN 40 MG TAB PO SCH (20:47)
[2019-01-13] MEDS: TAMSULOSIN HCL 0.4 MG CAP PO SCH (20:49)
[2019-01-13] MEDS: TRAVOPROST Z 0.004% OPH SOLN 2.5 ML BTL OPB SCH (20:59)
[2019-01-14 07:44] LABS: BUN Creatinine Ratio 9.5 (10-20); Calcium 8.8 mg/dl (8.5-10.1); Creatinine Clr Calc Pharmacy 37.8 ml/min; Est GFR (African American) 57.4; Est GFR (Non-African American) 49.5; Potassium 3.5 mmol/L (3.5-5.1)
[2019-01-14] MEDS ORDERED: AMOXICILLIN/CLAVULANATE POTAS 600MG/5ML UDP PO SCH (08:00)
[2019-01-14] MEDS: THIAMINE HCL 100 MG TAB PO SCH (09:21)
[2019-01-14] MEDS: INSULIN ASPART 100 UNITS/ML 3 ML PEN SC SCH ×4 (09:22→20:36)
[2019-01-14] MEDS: INSULIN GLARGINE SOLOSTAR 100 UNITS/ML 3 ML PEN SC SCH ×2 (09:24→20:37)
[2019-01-14] MEDS: ARTIFICIAL TEARS OPB SCH ×3 (09:27→20:38)
[2019-01-14] MEDS: PILOCARPINE HCL 2% OP SOLN 15 ML BTL OPB SCH ×4 (09:27→20:39)
[2019-01-14] MEDS: DORZOLAMIDE/TIMOLOL 22.3/6.8MG/ML 10 ML BTL OPB SCH ×2 (09:27→20:39)
[2019-01-14] MEDS: FOLIC ACID 1 MG TAB PO SCH (09:27)
[2019-01-14] MEDS: levETIRAcetam 250 MG TAB PO SCH ×2 (09:28→20:40)
[2019-01-14] MEDS: AMLODIPINE BESYLATE 5 MG TAB PO SCH (09:28)
[2019-01-14] MEDS: LISINOPRIL 5 MG TAB PO SCH (09:29)
[2019-01-14] MEDS: AMOXICILLIN/CLAV POTAS 600 MG/42.9MG/5 ML 75 ML PO SCH ×2 (09:30→17:50)
--- NOTE | 2019-01-14 15:23 | Hospitalist Progress Note ---
Date of Service January 14, 2019 Assessment & Plan (1) Acute respiratory failure: Acute respiratory failure noted at [facility]. EMS summoned. Intubation attempted in the field, but not successful. Received assisted ventilation en route. Intubated in ED at patient's request. CTA chest negative for pulmonary embolism, but demonstrated bibasilar infiltrates. Respiratory failure probably secondary to pneumonia with underlying COPD. Weaned / extubated 01/09. Maintaining sats on NC. (2) Severe sepsis: Met criteria for severe sepsis in the ED per current CMS criteria. Met criteria for severe sepsis due to eventual lactate > 4. Most likely source pneumonia. Blood cultures obtained. Receiving broad-spectrum antibiotics. Serum lactate elevated and trended. Had some low BP's, but hypotension could be attributed to sedation with propofol. Nasal MRSA screen negative, so MRSA pneumonia very unlikely. Received piperacillin / tazobactam. Transitioned to oral therapy with amoxicillin / clavulanic acid to complete course of therapy. (3) Pneumonia: Receiving IV piperacillin / tazo with improvement. Consider possibility of aspiration pneumonia. SHEARER OPERATOR attempted bedside swallowing eval 01/10 with apparent aspiration. More alert. Did well with bedside swallowing eval on 01/12. Resumed diet. Continue aspiration precautions. (4) Altered mental status: Increasing confusion at time of admission. CT head showed chronic small vessel disease, no acute findings. Probable encephalopathy secondary to sepsis and/or respiratory failure. Improved. (5) Abnormal EKG: EKG 01/09 showed fluctuating baseline, ? ST elevation inferiorly. Initial and subsequent troponins negative. (6) PRETTY (acute kidney injury): Serum creatinine at time of admission 1.59 compared to baseline of 0.76 on 03/28/2018. Received IV fluids. Creatinine today = 1.4. Follow. (7) History of CVA (cerebrovascular accident): Daughter reports history of ischemic strokes. CT head without contrast demonstrates small vessel ischemic changes. (8) HTN (hypertension): Blood pressures low at times, probably from sedation. BP this morning 112/49. Follow and titrate antihypertensive therapy. (9) Diabetes mellitus, type II: History of diabetes mellitus type 2. Hemoglobin A1c 6.8. Hold metformin and glipizide during hospital stay. Received IV insulin per ICU protocol. Pharmacy consulted for glycemic management. Blood sugar this morning 134. (10) HLD (hyperlipidemia): Continue atorvastatin. (11) BPH (benign prostatic hyperplasia): Resume tamsulosin. (12) Dementia: History of dementia leading to [facility] placement about 2 years ago. Daughter indicates that dementia has been attributed to cerebrovascular disease and/or alcohol use. Monitor for delirium. Avoid anticholinergic agents and other medications with ACETONE BUTTON PASTER side effects whene mainor possible. (13) MRSA (methicillin resistant Staphylococcus aureus) carrier: History of positive nasal MRSA screen 03/26/2018 at this facility. Nasal MRSA screen negative at time of this admission. Contact isolation should be continued until 2 negative MRSA screens confirmed. (14) Macular degeneration: Severe macular degeneration, legally blind. No apparent acute ocular or neuro event. (15) Hematuria: Gross hematuria noted yesterday. Palacios removed. Holding SQ heparin. Voiding without difficulty. (16) Do not resuscitate status: DNR status confirmed with daughter/POA. However, patient requested intubation in the Emergency Department and daughter confirms that short-term support with mechanical ventilation would be appropriate. (17) DVT prophylaxis: Received SQ heparin - stopped due to hematuria. SCD applied to left lower extremity. (18) Discharge planning issues: Seems more somnolent today, so not ready for transfer. Check f/u chest x-ray, UA. Follow-up with Dr. Gaspar at [facility] when stable for transfer. Daughter Janet given update by phone. (19) Somnolence: Subjective Recheck for multiple problems. Patient seen in their room around 10:00. Not as alert this morning. Did not eat breakfast. Answers questions and follows commands. Denies pain, cough, SOB, or other problems. Review of Systems Review of Systems: Unobtainable due to cognitive status Physical Exam Constitutional: no acute distress Respiratory: no respiratory distress Auscultation: lungs clear to auscultation bilaterally and + rhonchi (few) Cardiovascular: Rate/Rhythm: regular rate (distant heart sounds) and regular rhythm Heart Sounds: no gallop, no murmur and no cardiac rub Vessels: no JVD Extremities: no calf tenderness and no edema Gastrointestinal (Abdomen): Inspection/Auscultation: normal bowel sounds Percussion/Palpation: abdomen soft; abdomen nontender Musculoskeletal: Extremities: + amputation noted (right BKA); no cyanosis Skin: no rashes, warm and dry Psychiatric: Orientation: oriented to person; + not alert (somnolent, answers questions and follows commands), + not oriented x 3, + not oriented to place (knows that he is in a hospital, but doesn't know which one) and + not oriented to time Results & Data Vital Signs (Past 12 Hours) Vital Signs Temp Pulse Resp BP Pulse Ox 01/14/19 07:07 36.6 C 87 16 112/49 L 93 Laboratory Results Laboratory Results - last 24 hr 01/13/19 01/13/19 01/14/19 16:43 20:03 06:58 Sodium 141 Potassium 3.5 Chloride 109 H Carbon Dioxide 26 Anion Gap 7.0 BUN 13 D Creatinine 1.40 Est Cr Clr Drug Dosing 37.8 Est GFR ( Amer) 57.4 Est GFR (Non-Af Amer) 49.5 BUN/Creatinine Ratio 9.5 L Glucose 134 H POC Glucose 193 H 121 H Calcium 8.8 01/14/19 01/14/19 08:20 11:52 Sodium Potassium Chloride Carbon Dioxide Anion Gap BUN Creatinine Est Cr Clr Drug Dosing Est GFR ( Amer) Est GFR (Non-Af Amer) BUN/Creatinine Ratio Glucose POC Glucose 134 H 132 H Calcium (1) Acute respiratory failure Respiratory failure complication: unspecified whether with hypoxia or hypercapnia Qualified Code(s): J96.00 - Acute respiratory failure, unspecified whether with hypoxia or hypercapnia (2) Altered mental status Altered mental status type: unspecified Qualified Code(s): R41.82 - Altered mental status, unspecified
--- NOTE | 2019-01-14 16:47 | XRay Report ---
XR chest 1V portable HISTORY: 73 years-old Male f/u aspiration pneumonia follow-up study in a patient with left lung base opacities COMPARISON: Chest radiograph 01/10/2018 TECHNIQUE: Portable AP view of the chest FINDINGS: Cardiomediastinal and hilar silhouettes are within normal limits. Calcified plaque of the thoracic ao rtic arch. No pneumothorax, pleural effusion or overt pulmonary edema. There is improved aeration of the left lung base with near complete resolution of the previously described opacities. Degenerative changes of the shoulders and spine. IMPRESSION: Improved aeration of the left lung base with near complete resolution of the previously d escribed left lung base opacities. The above report was generated using voice recognition software. It may contain grammatical, syntax o r spelling errors. Electronically signed by: Kev Haro M.D. 01/14/2019 4:46 PM
[2019-01-14] MEDS: CITALOPRAM 20 MG TAB PO SCH (17:44)
[2019-01-14] MEDS: TAMSULOSIN HCL 0.4 MG CAP PO SCH (20:39)
[2019-01-14] MEDS: TRAVOPROST Z 0.004% OPH SOLN 2.5 ML BTL OPB SCH (20:40)
[2019-01-14] MEDS: ATORVASTATIN 40 MG TAB PO SCH (20:41)
--- NOTE | 2019-01-15 07:38 | Hospitalist Progress Note ---
Date of Service January 15, 2019 Assessment & Plan (1) Hematuria: -Gross hematuria noted on 01/14/19 and today -Palacios removed --> was voiding without difficulty ---> Again retaining ---> Straight cath and noted blood Clots -H & H stable. Monitor -Holding SQ heparin. -Consulted urology (2) Acute respiratory failure: Acute respiratory failure noted at [place] [facility]. Respiratory failure probably secondary to pneumonia with underlying COPD. -EMS summoned. Intubation attempted in the field, but not successful. -Received assisted ventilation en route. -Intubated in ED at patient's request. -CTA chest negative for pulmonary embolism, but demonstrated bibasilar infiltrates. -Weaned / extubated 01/09. -Maintaining sats on RA , off oxygen (3) Severe sepsis: -Met criteria for severe sepsis in the ED per current CMS criteria. -Met criteria for severe sepsis due to eventual lactate > 4. -Most likely source pneumonia. -S/P IV Zosyn --> Augmentin BID . -Work up - Nasal MRSA screen negative, so MRSA pneumonia very unlikely. (4) Pneumonia: Improving clinically and per imaging -S/P IV Zosyn--> Now on Augmentin as above -Consider possibility of aspiration pneumonia. -CHANNEL MARKETING SPECIALIST attempted bedside swallowing eval 01/10 with apparent aspiration. -Did well with bedside swallowing eval on 01/12. -Resumed diet. -Continue aspiration precautions. -Repeat CXR on 01/14/19 for increased somnolence, lethargy-improved aeration of left lung base with near complete resolution of previously described left lung base opacities (5) Altered mental status: Probable Metabolic encephalopathy secondary to sepsis and/or respiratory failure - Improved -Increasing confusion at time of admission, now improved. -CT head showed chronic small vessel disease, no acute findings. (6) Abnormal EKG: -EKG 01/09 showed fluctuating baseline, ? ST elevation inferiorly. -Initial and subsequent troponins negative. (7) PRETTY (acute kidney injury): -Serum creatinine at time of admission 1.59 compared to baseline of 0.76 on 03/28/2018. -S/P IVF and now stabilized -Monitor (8) History of CVA (cerebrovascular accident): -Daughter reports history of ischemic strokes. -CT head without contrast demonstrates small vessel ischemic changes. (9) HTN (hypertension): -Blood pressures low at times, probably from sedation. -Stabilized -Monitor (10) Diabetes mellitus, type II: -History of Diabetes Mellitus type 2. -Hemoglobin A1c 6.8. -Hold metformin and glipizide during hospital stay. -Received IV insulin per ICU protocol. -Pharmacy consulted for glycemic management. (11) HLD (hyperlipidemia): -Continue atorvastatin. (12) BPH (benign prostatic hyperplasia): -Resume tamsulosin. (13) Dementia: -History of dementia leading to snf placement about 2 years ago. -Daughter indicates that dementia has been attributed to cerebrovascular disease and/or alcohol use. -Monitor for delirium. -Avoid anticholinergic agents and other medications with SKINNER PELTS side effects whenever possible. (14) MRSA (methicillin resistant Staphylococcus aureus) carrier: -History of positive nasal MRSA screen 03/26/2018 at this facility. -Nasal MRSA screen negative at time of this admission. -Contact isolation should be continued until 2 negative MRSA screens confirmed. (15) Macular degeneration: -Severe macular degeneration, legally blind. -No apparent acute ocular or neuro event. No indication of CT scan (16) Somnolence: Improved today -Able to have a conversation and had lunch. (17) DVT prophylaxis: -Received SQ heparin - stopped due to hematuria. -SCD applied to left lower extremity. (18) Do not resuscitate status: -DNR status confirmed with daughter/POA. -However, patient requested intubation in the Emergency Department and daughter confirms that short-term support with mechanical ventilation would be appropriate. (19) Discharge planning issues: Follow-up with Dr. Gaspar at [facility] when stable for transfer. Daughter Janet given update by phone today. Subjective . Results & Data Vital Signs (Past 12 Hours) Vital Signs Temp Pulse Resp BP Pulse Ox 01/15/19 07:09 36.3 C L 69 17 128/77 98 01/14/19 23:35 36.6 C 73 18 133/80 97 (1) Acute respiratory failure Respiratory failure complication: unspecified whether with hypoxia or hypercapnia Qualified Code(s): J96.00 - Acute respiratory failure, unspecified whether with hypoxia or hypercapnia (2) Altered mental status Altered mental status type: unspecified Qualified Code(s): R41.82 - Altered mental status, unspecified
[2019-01-15 07:48] LABS: Hematocrit (blood only) 32.6 % (42-52); Hemoglobin 11.4 g/dL (14.0-18.0); Mean Corpuscular Volume 86.2 fL (80-100); Mean Platelet Volume 9.7 fL (7.4-10.4); Platelet Count 171 K/uL (130-400); RDW Coefficient of Variation 12.6 % (11.5-14.5); RDW Standard Deviation 39.3 fL (36.4-46.3); Red Blood Count 3.78 M/uL (4.7-6.1); White Blood Count 7.29 K/uL (4.8-10.8)
[2019-01-15 08:21] LABS: BUN Creatinine Ratio 14.9 (10-20); Creatinine Clr Calc Pharmacy 53.4 ml/min; Est GFR (African American) 87.2; Est GFR (Non-African American) 75.2; Potassium 3.7 mmol/L (3.5-5.1)
[2019-01-15] MEDS: levETIRAcetam 250 MG TAB PO SCH ×2 (08:53→20:43)
[2019-01-15] MEDS: AMLODIPINE BESYLATE 5 MG TAB PO SCH (08:53)
[2019-01-15] MEDS: LISINOPRIL 5 MG TAB PO SCH (08:53)
[2019-01-15] MEDS: FOLIC ACID 1 MG TAB PO SCH (08:53)
[2019-01-15] MEDS: THIAMINE HCL 100 MG TAB PO SCH (08:53)
[2019-01-15] MEDS: DORZOLAMIDE/TIMOLOL 22.3/6.8MG/ML 10 ML BTL OPB SCH ×2 (08:54→20:37)
[2019-01-15] MEDS: ARTIFICIAL TEARS OPB SCH ×3 (08:54→20:44)
[2019-01-15] MEDS: INSULIN ASPART 100 UNITS/ML 3 ML PEN SC SCH ×4 (08:57→20:42)
[2019-01-15] MEDS: INSULIN GLARGINE SOLOSTAR 100 UNITS/ML 3 ML PEN SC SCH ×2 (08:58→20:41)
[2019-01-15] MEDS: AMOXICILLIN/CLAV POTAS 600 MG/42.9MG/5 ML 75 ML PO SCH ×2 (09:33→17:34)
[2019-01-15] MEDS: PILOCARPINE HCL 2% OP SOLN 15 ML BTL OPB SCH ×4 (09:34→20:37)
--- NOTE | 2019-01-15 15:08 | Urology Consultation ---
Date of Consultation January 15, 2019 Assessment & Plan (1) Hematuria: Reported gross hematuria. Patient unable to provide much history today. Does not appear to be any pain or distress. Repeat UC&S is pending. CT abd/pelvis. Urine cytology. Will continue to follow. History of Present Illness Attending Physician: Heather Glass History of Present Illness 73 YO male with dementia, sepsis, who has developed gross hematuria. Patient not able to provide history. He has never been seen by our service. Per chart review had indwelling Palacios which was removed yesterday. Patient was voiding spontaneously and then retaining. CIC revealed gross hematuria. Patient is cooperative, does answer questions with "yes" or "no" and denies pain or other urinary bother. No imaging to review. Urine upon arrival grew yeast. Allergies Allergy/AdvReac Type Severity Reaction Status Date / Time No Known Allergies Allergy Verified 01/08/19 16:29 Home Medications Home Medications Medication Instructions Recorded Confirmed Type Artificial Tears (PF) 1 drp OPB TID 03/26/18 01/08/19 History GlucaGen HypoKit 1 mg IM DIRECTED PRN 03/26/18 01/08/19 History PreserVision AREDS-2 1 tab PO DAILY 03/26/18 01/08/19 History Travatan Z 1 drp OPB PM 03/26/18 01/08/19 History acetaminophen 650 mg PO Q6H PRN MDD 4 GRAMS/24 03/26/18 01/08/19 History HOURS alum-mag hydroxide-simeth 30 ml PO QPM PRN 03/26/18 01/08/19 History [Jaymie-Lanta] amlodipine 5 mg PO DAILY 03/26/18 01/08/19 History atorvastatin 80 mg PO HS 03/26/18 01/08/19 History dorzolamide-timolol [Cosopt] 1 drp OPB BID 03/26/18 01/08/19 History ferrous sulfate 325 mg PO DAILY 03/26/18 01/08/19 History folic acid 1 mg PO DAILY 03/26/18 01/08/19 History glipizide 5 mg PO QAM 03/26/18 01/08/19 History lisinopril 1 tab PO DAILY 03/26/18 01/08/19 History lorazepam 0.5 mg PO Q4H PRN 03/26/18 01/08/19 History metformin [Glucophage] 500 mg PO BID 03/26/18 01/08/19 History multivitamin [Tab-A-Tj] 1 tab PO DAILY 03/26/18 01/08/19 History omega 1-ebi-ykz-fish oil [Fish Oil] 1 cap PO DAILY 03/26/18 01/08/19 History pilocarpine HCl 1 drp OPB QID 03/26/18 01/08/19 History tamsulosin 1 cap PO QDD 03/26/18 01/08/19 History thiamine HCl (vitamin B1) [Vitamin 100 mg PO DAILY 03/26/18 01/08/19 History B-1] citalopram [Celexa] 10 mg PO QDD 01/08/19 01/08/19 History insulin glargine [Lantus U-100 10 unit SUBCUT HS 01/08/19 01/08/19 History Insulin] levetiracetam 250 mg PO BID 01/08/19 01/08/19 History lorazepam 0.5 mg PO BID 01/08/19 01/08/19 History Patient History Medical History B12 deficiency (Chronic) Tremor (Chronic) Macular degeneration (Chronic) Anxiety (Chronic) Alcoholic encephalopathy (Chronic) BPH (benign prostatic hyperplasia) (Chronic) Iron deficiency anemia (Chronic) HTN (hypertension) (Chronic) HLD (hyperlipidemia) (Chronic) Diabetes mellitus, type II (Chronic) No pertinent family history Surgical History History of right below knee amputation (Chronic) Family History Other No pertinent family history Social History Preferred Language: German Communication Ability: Unable Communication Ability Comment: Patient presently intubated and sedated English Horn Player Required: No Beliefs That Will Affect Care: None Current Living Situation: [facility] Other Information That Helps Us Care for You: No Feels Safe at Home: Yes Smoking Status: Former smoker Tobacco Type: cigarettes ; Do You Dip or Chew Tobacco: No ; Second Hand Exposure: No ; Tobacco Cessation Education Requested by Patient: No Hx Alcohol Use: No Hx Substance Use: No Review of Systems Review of Systems: Limited ROS due to dementia and communication barriers. Physical Exam Constitutional: no acute distress Eyes: Legally blind ENMT: Ears: no hearing impairment Neck: normal visual inspection Respiratory: normal respiratory effort; does not use accessory muscles Cardiovascular: Vessels: no JVD Gastrointestinal (Abdomen): Percussion/Palpation: abdomen soft; abdomen nontender and no guarding Psychiatric: Orientation: alert and cooperative Genitourinary: bladder normal to palpation; no CVA tenderness Results & Data Vital Signs (Past 12 Hours) Vital Signs Temp Pulse Resp BP Pulse Ox 01/15/19 07:09 36.3 C L 69 17 128/77 98
--- NOTE | 2019-01-15 15:59 | CT Scan Report ---
ABDOMEN AND PELVIS CT WITHOUT CONTRAST CT DOSE: 289.08 mGy.cm HISTORY: hematuria TECHNIQUE: Multiaxial CT images of the abdomen and pelvis were performed without contrast. A dose lo wering technique was utilized adhering to the principles of ALARA. COMPARISON STUDY: None. FINDINGS: Groundglass densities at the lung bases favor mild dependent change. No pneumoperitoneum. N o pneumatosis. No suspicious lytic are blastic osseous lesions. Trace pericardial effusion. Multiple punctate stones within the gallbladder neck/cystic duct. No definite gallbladder wall thickening. The unenhanced liver, spleen, adrenal glands, and pancreas are unremarkable. Mild bilateral perinephric edema. This is likely chronic. Calcifications in the renal sinuses appear to be vascular. No definite renal or ureteral calculi. No hydronephrosis. Moderate cortical scarring within the bilateral kidney s. The bladder distended. There is mild bladder wall thickening for the degree of distention and mild fat stranding adjacent to the bladder dome. The prostate gland is mildly enlarged. Evidence for prio r aortofemoral graft. No retroperitoneal hematoma or lymphadenopathy. Suboptimal evaluation for bowel pathology due to the lack of intravenous and oral contrast. However, there is no definite bowel wall thickening or obstruction. Fluid-filled colon. Scattered colonic diverticula. No evidence for divert iculitis. Normal appendix. IMPRESSION: 1. No renal or ureteral stones. No hydronephrosis. 2. Cholelithiasis. There are a couple punctate stones within the gallbladder neck/cystic duct. No def inite gallbladder wall thickening. However, clinical correlation recommended to assess for the possib ility of a developing acute cholecystitis given the stones at the neck/cystic duct. 3. Mild bladder wall thickening with adjacent fat stranding. This could be due to chronic outlet obst ruction given the enlarged prostate gland. Recommend correlation with urinalysis to exclude a cystiti s. 4. No definite bowel wall thickening or obstruction. 5. Normal appendix. 6. Fluid-filled colon. This could represent a mild gastroenteritis. 7. Postoperative changes as described above. Electronically signed by: Harmeet Sanders M.D. 01/15/2019 3:57 PM
[2019-01-15] MEDS: CITALOPRAM 20 MG TAB PO SCH (18:07)
[2019-01-15] MEDS: ATORVASTATIN 40 MG TAB PO SCH (20:42)
[2019-01-15] MEDS: TAMSULOSIN HCL 0.4 MG CAP PO SCH (20:43)
[2019-01-15] MEDS: TRAVOPROST Z 0.004% OPH SOLN 2.5 ML BTL OPB SCH (20:44)
[2019-01-16 05:50] LABS: Hematocrit (blood only) 30.8 % (42-52); Hemoglobin 10.6 g/dL (14.0-18.0); Mean Corpuscular Hgb Conc 34.4 g/dL (32-36); Mean Corpuscular Volume 86.5 fL (80-100); Mean Platelet Volume 9.8 fL (7.4-10.4); Platelet Count 180 K/uL (130-400); RDW Coefficient of Variation 12.5 % (11.5-14.5); RDW Standard Deviation 39.8 fL (36.4-46.3); Red Blood Count 3.56 M/uL (4.7-6.1); White Blood Count 7.87 K/uL (4.8-10.8)
[2019-01-16 06:15] LABS: Creatinine Clr Calc Pharmacy 38.9 ml/min; Est GFR (African American) 59.4; Est GFR (Non-African American) 51.3
[2019-01-16] MEDS: LISINOPRIL 5 MG TAB PO SCH (08:48)
[2019-01-16] MEDS: THIAMINE HCL 100 MG TAB PO SCH (08:48)
[2019-01-16] MEDS: AMLODIPINE BESYLATE 5 MG TAB PO SCH (08:48)
[2019-01-16] MEDS: DORZOLAMIDE/TIMOLOL 22.3/6.8MG/ML 10 ML BTL OPB SCH (08:49)
[2019-01-16] MEDS: FOLIC ACID 1 MG TAB PO SCH (08:49)
[2019-01-16] MEDS: PILOCARPINE HCL 2% OP SOLN 15 ML BTL OPB SCH ×3 (08:50→16:49)
[2019-01-16] MEDS: AMOXICILLIN/CLAV POTAS 600 MG/42.9MG/5 ML 75 ML PO SCH ×2 (08:51→16:53)
[2019-01-16] MEDS: levETIRAcetam 250 MG TAB PO SCH (08:52)
[2019-01-16] MEDS: ARTIFICIAL TEARS OPB SCH ×2 (08:52→12:25)
[2019-01-16] MEDS: INSULIN GLARGINE SOLOSTAR 100 UNITS/ML 3 ML PEN SC SCH (08:57)
[2019-01-16] MEDS: INSULIN ASPART 100 UNITS/ML 3 ML PEN SC SCH ×3 (08:58→18:05)
--- NOTE | 2019-01-16 10:17 | Pharmacy Report ---
Pharmacy Glycemic Short Note 2 - Date of Service January 16, 2019 - Glycemic Short BSG Results (Last 24 hours): 01/15/19 01/15/19 01/15/19 11:22 16:47 20:32 POC Glucose 144 H 169 H 181 H 01/16/19 07:53 POC Glucose 171 H OUTPATIENT ANTIDIABETIC REGIMEN: * Lantus 10 units SQ HS * Metformin 500mg PO BID * Glipizide 5mg PO Q AM * A1c = 6.8% ASSESSMENT: 01/16: * Patient's BSGs well controlled over past several days, requiring 20-25 units of insulin each day * Fasting BSG slightly elevated this am at 171 mg/dL - will titrate up from 8 to 10 units of Lantus this morning, will provide scale for Lantus for tonight * Patient eating more yesterday BSGs trending up 144-169-181 - will tighten CR more today PLAN FOR INPATIENT GLYCEMIC CONTROL: * Hold outpatient oral diabetes medications (metformin / glipizide) * Basal insulin * Lantus 10 units q AM * Scale for PM: 6 units less than 140, 8 units if 140 or greater * Bolus insulin - tighten * NovoLog per scale ACHS or Q6hrs while NPO * Goal Range: Low 120 mg/dL - High 150 mg/dL * Correction Factor: 30 mg/dL/unit * Nutritional / Prandial insulin per carb ratio of 1 unit per 12 grams CHO consumed
--- NOTE | 2019-01-16 13:48 | Discharge Summary ---
Date of Service January 16, 2019 Admission HPI Per Admitting Provider This is a 72 year old male with PMH HTN, HLD, DM II, CVA, PAD with hx of R BKA, alcohol induced encephalopathy, tremors, iron deficiency anemia, macular degeneration, BPH who presented to ER from [facility] for acute respiratory failure requiring mechanical ventilation. Per SNF, [facility], patient was being seen at [facility] today for eye problems. When at the [facility] patient developed difficulty breathing and respiratory distress. Patient is a DNR/DNI but when respiratory status worsened he requested to be intubated. Per SNF patient had been in his usual state of health up until today. He does have dementia and can be uncooperative when his blood sugar is high. He also frequently refuses insulin and is noncompliant with other medications. He had not having any respiratory or URI like problems at [facility]. It was also noted he seemed more depressed for the past 6 months and he does have a history of heavy alcohol use in the past. Unable to obtain history from patient given sedated state. Principal Diagnosis 1. Severe sepsis likely secondary to aspiration pneumonia 2. Acute hypoxic respiratory failure requiring intubation likely secondary to a santino 3. Gross hematuria, resolved 4. Probable metabolic encephalopathy in setting of dementia 5. Acute kidney injury 6. Advanced dementia Secondary diagnoses on discharge 1. History of CVA 2. Status post right below-knee amputation 3. Ambulatory dysfunction 4. Diabetes mellitus type 2 5. Hyperlipidemia 6. BPH 7. MRSA carrier 8. Legally blind Discharge Exam GENERAL- Awake, alert, oriented to place, not in acute distress. Having his lunch. HEENT- Legally blind bilaterally LUNGS- Not examined as was having [facility] HEART- Regular rate and rhythm. No murmurs EXTREMITIES- S/P Right BKA NEUROMUSCULAR-Limited exam as not cooperative. Grossly moving all his extremities. Discharge Data Allergies Allergy/AdvReac Type Severity Reaction Status Date / Time No Known Allergies Allergy Verified 01/08/19 16:29 Consultations 01/08/19 17:11 Consult Repairer Engine Production Stat ED Decision to Admit Stat 01/08/19 17:30 Consult Repairer Engine Production Routine 01/08/19 19:01 Consult Case Management - Discharge Planning Routine 01/15/19 07:37 Consult Urology Routine Ordered Studies 01/08/19 16:12 CT head/brain wo con Stat 01/08/19 17:00 CT angio chest PE protocol Stat 01/10/19 06:29 CT head/brain wo con Urgent 01/15/19 15:15 CT abd pelvis wo con Routine Hospital Course (1) Hematuria: Resolved -Gross hematuria noted on 01/14/19 and 01/15/19---> Now resolved. Traumatic from hampton catheter ? -Hampton removed on 01/13/19 --> was voiding without difficulty ---> Again retaining ---> Straight cath and noted blood Clots on 01/14 & 01/15/19 -H & H stable. -Consulted urology- Ordered CT scan abd/pelvis -no stones, hydronephrosis, mild bladder wall thickening with adjacent fat stranding, likely chronic outlet obstruction given enlarged prostate gland. Urine cytology and C/S - patient refused after multiple attempts -I discussed this with daughter- Understands the limitations in diagnosing the etiology for hematuria as patient has dementia, refusing treatment. Agrees with focusing on comfort measures. Unless gross hematuria with significant HB drop would avoid any additional interventions. (2) Acute respiratory failure: Acute respiratory failure noted at [facility]. RESOLVED Respiratory failure probably secondary to pneumonia with underlying COPD. -EMS summoned. Intubation attempted in the field, but not successful. -Received assisted ventilation en route. -Intubated in ED at patient's request. -CTA chest negative for pulmonary embolism, but demonstrated bibasilar infiltrates. -Weaned / extubated 01/09. -Maintaining sats on RA , off oxygen (3) Severe sepsis: resolved -Met criteria for severe sepsis in the ED per current CMS criteria. -Met criteria for severe sepsis due to eventual lactate > 4. -Most likely source pneumonia. -S/P IV Zosyn --> Augmentin BID . (Completing 7 day course of antibiotics today). -Work up - Nasal MRSA screen negative, so MRSA pneumonia very unlikely. (4) Pneumonia: Improving clinically and per imaging, off oxygen now. -FISH BUTCHER attempted bedside swallowing eval 01/10 with apparent aspiration. -Did well with bedside swallowing eval on 01/12. -Resumed diet. -Continue aspiration precautions. Per D/w daughter, understands risk of aspiration/pneumonia -Repeat CXR on 01/14/19 for increased somnolence, lethargy-improved aeration of left lung base with near complete resolution of previously described left lung base opacities (5) Altered mental status: Probable Metabolic encephalopathy secondary to sepsis and/or respiratory failure - Improved -Increasing confusion at time of admission, now improved and near baseline -CT head showed chronic small vessel disease, no acute findings. (6) Abnormal EKG: -EKG 01/09 showed fluctuating baseline, ? ST elevation inferiorly. -Initial and subsequent troponins negative. (7) PRETTY (acute kidney injury): -Serum creatinine at time of admission 1.59 compared to baseline of 0.76 on 03/28/2018. -S/P IVF and now stabilized (8) History of CVA (cerebrovascular accident): -Daughter reports history of ischemic strokes. -CT head without contrast demonstrates small vessel ischemic changes. (9) HTN (hypertension): -Blood pressures low at times, probably from sedation. -Stabilized (10) Diabetes mellitus, type II: -History of Diabetes Mellitus type 2. -Hemoglobin A1c 6.8. -Hold metformin and glipizide during hospital stay. -Received IV insulin per ICU protocol. -Pharmacy consulted for glycemic management. (11) HLD (hyperlipidemia): -Continue atorvastatin. (12) BPH (benign prostatic hyperplasia): -Resume tamsulosin. (13) Dementia: -History of dementia leading to senior living placement about 2 years ago. -Daughter indicates that dementia has been attributed to cerebrovascular disease and/or alcohol use. -Avoid anticholinergic agents and other medications with WAREHOUSE STOCK CLERK side effects whenever possible. (14) MRSA (methicillin resistant Staphylococcus aureus) carrier: -History of positive nasal MRSA screen 03/26/2018 at this facility. -Nasal MRSA screen negative at time of this admission. -Contact isolation should be continued until 2 negative MRSA screens confirmed. (15) Macular degeneration: -Severe macular degeneration, legally blind. -No apparent acute ocular or neuro event. No indication of CT scan (16) Somnolence: Resolved -Able to have a conversation and had lunch today (17) DVT prophylaxis: -Received SQ heparin - stopped due to hematuria. -SCD applied to left lower extremity. (18) Do not resuscitate status: -DNR status confirmed with daughter/POA. -However, patient requested intubation in the Emergency Department and daughter confirms that short-term support with mechanical ventilation would be appropriate. I had a detailed discussion with Janet again about goals of care. Focus more on comfort measures, no aggressive or heroic measures. DNR/DNI. Offered to do POLST form, but no plans to come to hospital. May be completed outpatient (19) Discharge planning issues: OK to discharge today to [facility]. Follow-up with Dr. Gaspar at [facility] Daughter, Janet agreeable with discharge plan Total Time Total Time Spent Total Time Spent (In Minutes): 40 minutes Discharge Plan Discharge Items Patient Disposition: Trans Resident Long-Term Care Reason For Visit: ACUTE RESPIRATORY FAILURE,UNRESPONSIVE Discharge Diagnosis: 1. Severe sepsis secondary to aspiration pneumonia 2. Acute hypoxic respiratory failure requiring intubation 3. Acute kidney injury 4. Gross hematuria Discharge Goals: Decrease discomfort Activity: As commented below Activity Comment: As prior to admission Non-emergency contact: Primary Care Provider Call non-emergency contact if: your symptoms worsen Follow-up/Referrals: Charles Gaspar M.D. [Primary Care Provider] - Diet: Carb Consistent or DM2 Diet Comment: As per speech instructionsmainstem moist diet, single bites/small sips/slow rate with aspiration precautions Addtl Provider Instructions: MEDICATION CHANGES Completed course of antibiotics ( 7 days today) for aspiration pneumonia Gross Hematuria has resolved. Avoid blood thinners due to risk of hematuria, unclear etiology. Prescriptions: Continued Lantus U-100 Insulin 100 unit/mL Solution 10 unit SUBCUT HS RF: 0 levetiracetam 500 mg Tablet 250 mg PO BID RF: 0 citalopram [Celexa] 20 mg Tablet 10 mg PO QDD RF: 0 lorazepam 0.5 mg Tablet 0.5 mg PO BID RF: 0 multivitamin [Tab-A-Tj] Tablet 1 tab PO DAILY RF: 0 atorvastatin 80 mg Tablet 80 mg PO HS RF: 0 acetaminophen 325 mg Tablet 650 mg PO Q6H MDD 4 GRAMS/24 HOURS PRN (Reason: Fever Or Pain) RF: 0 thiamine HCl (vitamin B1) [Vitamin B-1] 100 mg Tablet 100 mg PO DAILY RF: 0 Travatan Z 0.004 % Drops 1 drp OPB PM RF: 0 amlodipine 5 mg Tablet 5 mg PO DAILY RF: 0 lorazepam 0.5 mg Tablet 0.5 mg PO Q4H PRN (Reason: Anxiety) RF: 0 tamsulosin 0.4 mg capsule 1 cap PO QDD RF: 0 ferrous sulfate 325 mg (65 mg iron) Tablet 325 mg PO DAILY RF: 0 metformin [Glucophage] 1,000 mg Tablet 500 mg PO BID RF: 0 GlucaGen HypoKit 1 mg Recon Soln 1 mg IM DIRECTED PRN (Reason: LOW BSG<60) RF: 0 folic acid 1 mg Tablet 1 mg PO DAILY RF: 0 dorzolamide-timolol [Cosopt] 22.3-6.8 mg/mL Drops 1 drp OPB BID RF: 0 lisinopril 5 mg Tablet 1 tab PO DAILY RF: 0 alum-mag hydroxide-simeth [Jaymie-Lanta] 200-200-20 mg/5 mL Suspension 30 ml PO QPM PRN (Reason: Constipation) RF: 0 pilocarpine HCl 2 % Drops 1 drp OPB QID RF: 0 glipizide 5 mg Tablet 5 mg PO QAM RF: 0 Artificial Tears (PF) 0.1-0.3 % Dropperette 1 drp OPB TID RF: 0 omega 9-zpi-rlz-fish oil [Fish Oil] 1,000 mg (120 mg-180 mg) Capsule 1 cap PO DAILY RF: 0 PreserVision AREDS-2 055-911-95-1 gg-jicv-fl-mg Capsule 1 tab PO DAILY RF: 0 Stand-Alone Forms: [facility] Discharge Orders: Discharge Order (Routine); Ordered 01/16/19 Ordered By: Heather Glass Admission Data Admit Date/Time: 01/08/19 17:30 Attending Provider: Heather Glass Admit Provider: Chandrakant Puckett Primary Care Provider: Charles Gaspar Other Providers: Garret Smith ; Chandrakant Jackson ; Chandrakant Puckett ; Dave Lee ; Alberto Moser ; Fadi Malhotra I. ; Williams Tellez ; Helen Jolly ; Cesar Gunter II ; Mana Galvez Service: Medical
--- NOTE | 2019-01-16 14:01 | Urology Progress Note ---
Date of Service January 16, 2019 Assessment & Plan (1) Hematuria: Resolved gross hematuria. Patient not cooperative for collection of urine cytology. Spontaneously voiding +incontinence. Recommend continued bladder scan and CIC PRN, if not cooperative would consider indwelling [place] if PVR consistently high. Patient does not appear to be in any pain or distress. Would recommend outpatient urology follow up for cystoscopy, cytology. Unknown if patient is established with [facility] Dr. Mitchell, if so would arrange follow up with her office. Otherwise, please contact our outpatient office at [phone] to arrange follow up if needed. Thank you for allowing us to participate in the inpatient care of Mr. Kennedy. Please contact our service if we can be of further assistance during hospitalization. Subjective 73 YO male with gross hematuria. Non-con ct abd/pelvis is reviewed and without obvious source of bleeding or obstruction. Per nursing bleeding has resolved. No fevers. Patient denies pain today. Has been spontaneously voiding vs. incontinence. Unfortunately has not been cooperating with staff for collection of urine sample for cytology. Review of Systems Review of Systems: Unobtainable due to cognitive status Physical Exam Physical Exam: NAD. Resp effort normal. No JVD. Abd soft, nontender. : bladder nonteder/nondistended. A&O x self. Results & Data Vital Signs (Past 12 Hours) Vital Signs Pulse Resp BP Pulse Ox 01/16/19 06:58 71 18 137/75 99
[2019-01-16] MEDS: CITALOPRAM 20 MG TAB PO SCH (16:45)
[2019-01-16] MEDS ORDERED: INSULIN GLARGINE SOLOSTAR 100 UNITS/ML 3 ML PEN SC SCH (21:00)
[2019-01-17] MEDS ORDERED: INSULIN GLARGINE SOLOSTAR 100 UNITS/ML 3 ML PEN SC SCH (09:00)
== END 2019-01-16 19:27 | DRG 871 ==
LOC: ED 15:58 → SUATTDRO 17:30 → 1E 17:30 → 2S 01-09 13:59 → 4W 01-12 17:27
DX: G31.2 Degeneration of nervous system due to alcohol; G93.41 Metabolic encephalopathy; Z89.511 Acquired absence of right leg below knee; Z79.4 Long term (current) use of insulin; E78.5 Hyperlipidemia, unspecified; A41.9 Sepsis, unspecified organism; H35.30 Unspecified macular degeneration; F41.9 Anxiety disorder, unspecified; I10 Essential (primary) hypertension; E11.9 Type 2 diabetes mellitus without complications; R65.20 Severe sepsis without septic shock; E53.8 Deficiency of other specified B group vitamins; J69.0 Pneumonitis due to inhalation of food and vomit; J96.00 Acute respiratory failure, unspecified whether with hypoxia or hypercapnia; N40.0 Benign prostatic hyperplasia without lower urinary tract symptoms; N39.0 Urinary tract infection, site not specified; F10.97 Alcohol use, unspecified with alcohol-induced persisting dementia; Z91.14 Patient's other noncompliance with medication regimen; R40.0 Somnolence; Z22.322 Carrier or suspected carrier of Methicillin resistant Staphylococcus aureus; Z86.73 Personal history of transient ischemic attack (TIA), and cerebral infarction without residual deficits; Z66 Do not resuscitate; N17.9 Acute kidney failure, unspecified